=== PATIENT | female | born 1935 | race Caucasian/White ===

== ENCOUNTER → 2017-01-03 | Outpatient (CLI) | payer MEDICARE, OTHER ==
--- NOTE | 2017-01-03 16:19 | REP ---
Portable day a [place] lumbar spine five views: There are no comparisons. Vertebral body heights and alignment are normal. There is no spondylolysis or spondylolisthesis. There is advanced degenerative disc disease at every lumbar level. The pedicles, facets and sacroiliac articulations are unremarkable. Impression: Advanced degenerative disc disease at every lumbar level. Signed by Romeo Lemus MD 01/03/2017 04:10 P
--- NOTE | 2017-01-03 16:21 | REP ---
O day a [place] left knee five views: There are no comparisons. 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 There is no joint effusion. There is diffuse demineralization. Impression: Chondrocalcinosis compatible with CPPD, advanced tricompartment osteoarthritis, demineralization. No effusion. Signed by Romeo Lemus MD 01/03/2017 04:12 P
== END ==
LOC: M RAD 15:10
PROVIDERS: ATTEND Internal Medicine
DX: M51.37 Other intervertebral disc degeneration, lumbosacral region (principal); M17.12 Unilateral primary osteoarthritis, left knee; M81.0 Age-related osteoporosis without current pathological fracture; M11.262 Other chondrocalcinosis, left knee; D50.9 Iron deficiency anemia, unspecified

== ENCOUNTER → 2017-01-03 | Outpatient (REF) | payer MEDICARE, OTHER ==
[2017-01-03 17:20] LABS: PERCENT SATURATION 21.2 % (13.2-37.4)
[2017-01-03 18:10] LABS: FOLATE 16.3 NG/ML
== END ==
LOC: M LAB REF 16:26
PROVIDERS: ATTEND Internal Medicine
DX: D50.9 Iron deficiency anemia, unspecified (principal)

== ENCOUNTER → 2017-03-11 | Outpatient (REF) | payer MEDICARE, OTHER ==
[2017-03-11 13:50] LABS: URIC ACID 7.8 MG/DL (2.6-6.0)
[2017-03-11 19:09] LABS: PERCENT SATURATION 23.9 % (13.2-45.0)
== END ==
LOC: M LAB REF 12:46
PROVIDERS: ATTEND Internal Medicine
DX: M10.9 Gout, unspecified (principal); D64.9 Anemia, unspecified

== ENCOUNTER → 2017-04-16 | Outpatient (REF) | payer MEDICARE, OTHER | LOC: M LAB REF 16:36 | PROVIDERS: ATTEND Internal Medicine | DX: E79.0 Hyperuricemia without signs of inflammatory arthritis and tophaceous disease (principal) ==

== ENCOUNTER → 2018-02-12 | Outpatient (REF) | payer MEDICARE, OTHER ==
[2018-02-12 12:34] LABS: URIC ACID 6.1 MG/DL (2.6-6.0)
== END ==
LOC: M LAB REF 12:06
DX: M10.9 Gout, unspecified (principal)
CPT/HCPCS: 84550

== ENCOUNTER → 2018-06-09 | Outpatient (REF) | payer MEDICARE, OTHER | LOC: M LAB REF 16:44 | DX: N39.0 Urinary tract infection, site not specified (principal) | CPT/HCPCS: 87086 ==

== ENCOUNTER → 2018-12-07 | Outpatient (CLI) | payer MEDICARE, OTHER ==
--- NOTE | 2018-12-07 13:05 | REP ---
Clinical: Contusion. Technique: AP, lateral, bilateral oblique views of the left foot. Findings: Age-related osteopenia and arthritic degenerative changes are appreciated along with soft tissue swelling and evidence for peripheral vascular disease. There is a nondisplaced fracture involving the base of the first toe proximal phalanx. Injury involving the second toe proximal phalanx cannot be excluded as well. Impression: 1. Injury at the base of the first toe proximal phalanx and possible injury at the base of the second toe proximal phalanx. 2. Moderate soft tissue swelling along with diffuse osteodystrophy. Electronically Signed by James Solis MD 12/07/2018 12:56 P
== END ==
LOC: M WUC 12:38
PROVIDERS: ATTEND Physician Assistant
DX: S92.415A Nondisplaced fracture of proximal phalanx of left great toe, initial encounter for closed fracture (principal); M79.89 Other specified soft tissue disorders; M85.872 Other specified disorders of bone density and structure, left ankle and foot; M19.072 Primary osteoarthritis, left ankle and foot; X58.XXXA Exposure to other specified factors, initial encounter; Y92.9 Unspecified place or not applicable

== ENCOUNTER 2021-05-15 11:23 | Inpatient (IN) | payer MEDICARE, OTHER ==
[~2021-05-15] VITALS: Ht 165.1 cm; Wt 88.4 kg
--- OUTSIDE RECORDS SUMMARY | 2021-05-15 11:28 | CCD | Continuity of Care Document ---
Author Author Keely Shah M.D. Organization Unknown Address [address] [facility] [address] [place] [address] Phone [phone] Care Team Providers Care Toll Bridge Operator Name Role Phone Carol Shah MD AUTM [phone] Antonio Arellano MD AUTM [phone] Problems Active Problems Provider Date Benign essential hypertension Carol Shah M.D. Onset: 03/04/2011 Type 2 diabetes mellitus Carol Shah M.D. Onset: 02/13 Pure hypercholesterolemia Carol Shah M.D. Onset: Asthma without status asthmaticus Carol Shah M.D. On set: 03/04/2011 Iron deficiency anemia Carol Shah M.D. Onset: 2010 Osteoarthritis Carol Shah M.D. Onset: 1 Generalized anxiety disorder Carol Shah M.D. Onset: 03/04/2011 Chondrocalcinosis of knee joint Carol Shah M.D. Onse t: 01/04/2017 Social History Type Date Description Comments Sex Unknown ETOH Use Denies alcohol use Tobacco Use Start: Unknown End: Unknown Patient is a former smoker SMOKED X 3-4 YRS NEVER INHALED Allergies, Adverse Reactions, Alerts Active Allergies Reaction Severity Comments Date Sulfa CONFUSION 10/11/2011 Inactive Allergies NKDA 04/04/2010 Medications Active Medications SIG Qnty Indications Ordering Provide r Date Metoprolol Succinate ER 50mg Tablets ER 24HR take one tablet by mouth at bedtime 90tabs Xenia Lopez.D. 10/26/2019 Nu-Mag 71.5-119mg Tablets DR take two tablets by mouth at bedtime 180tabs Xenia Lopez 10/12/2019 Losartan Potassium 50mg Tablets 1 by mouth every night at bedtime 90tabs Carol Shah M.D. 0 03/19/2019 Loperamide HCL 2mg Capsules 1 by mouth every day as needed Carol Shah M.D. 08/16 Eucerin Skin Calming Daily Moisturizing Cream 2x/d Carol Shah M.D. 05/16 Shingrix 50mcg/0.5ML Suspension Re c administer 0.5 milliliters intramuscular, repeat in 2 to 6 months 2units Carol Shah M.D. 06/09/2018 Aspercreme W/Lidocaine 4% Cream 2-4x/d as directed 30gm Carol Shah M.D. 03/12/20 17 Tylenol 8 Hour Arthritis Pain 650mg Tablets ER 1po 3x/d for 2 weeks then as needed Carol Shah M.D. 01/03/2017 Depend Pant Large Misc 1-2 po qd dm 2 cri3 incontinence 60units Carol Shah M.D. 2015 Flonase Allergy Relief 50mcg/Act Suspension 1-2 sprays per nostril twice a day as needed 29.7ml Carol Shah M.D. 05/04/2015 Simvastatin 20mg Tablets take one tablet by mouth at bedtime 90tabs Carol Shah M.D. 07/15 Accu-Chek Comfort Curve Test Strips Strips 1 b.i.d.3x week and as needed 100units E11.22 Carol Randhawa M.D. 03/31/[address] take one capsule by mouth every morning 90caps Carol Shah M.D. 02/26/2013 Glucometer Misc use as directed dx=dm2 1units Carol Shah M.D. 01/14 Advair Diskus 250-50mcg/Dose Aeros ol inhale 1 puff by mouth two times a day as needed 3units Carol Shah M.D. 10/18/2010 Medications Administered in Office Medication SIG Qnty Indications Ordering Provider Date Immunization Adminstration,1 Vaccine/Tox oid Injection Carol Shah M.D. 05/15 Administration Of Flu Vaccine Inj ection Carol Shah M.D. 04/27/20 04 Administration Of Flu Vaccine Inj ection Carol Shah M.D. 06/22/20 02 Administration Of Flu Vaccine Inj ection Carol Shah M.D. 04/23/20 01 Immunizations CPT Code Status Date Vaccine Lot # U-Flu Given 05/02/2020 Influenza,Unspecified 53428 Given 05/26/2019 Tetanus/Diptheria(Td)Toxoids Preservative Free [id number] U-Flu Given 05/09/2019 Influenza,Unspecified U-Flu Given 04/03/2018 Influenza,Unspecified 15103 Given 07/28/2014 Prevnar 13 [id number] 05438 Given 04/27/2004 Influenza Virus Vaccine 70157 Given 06/22/2002 Influenza Virus Vaccine 74195 Given 04/23/2001 Influenza Virus Vaccine [id number] Refused 05/19/2020 Shingrix Zoster Vaccine (HZV), Recombinant, Subunit, Adjuvanted 96497 Refused 06/09/2018 Zoster Vaccine Vital Signs Date Vital Result Comment 02/14/2021 11:41am BP Systolic 140 mmHg RT Arm BP Diastolic 60 mmHg RT Arm Heart Rate 80 /min Height 62.75 inches 5'2.75" Weight 184.12 lb BMI (Body Mass Index) 32.9 kg/m2 10/18/2020 10:33am BP Systolic 138 mmHg RT Arm BP Diastolic 60 mmHg RT Arm Heart Rate 88 /min Height 62.75 inches 5'2.75" Weight 180.25 lb BMI (Body Mass Index) 32.2 kg/m2 Results Test Acquired Date Facility Test Result H/L Range Note Complete Blood Count 02/14/2021 [facility] Patient Accounts Clerk: [place] [address] [phone] WBC 10.4 x10*3/UL 4.1 - 10.9 1 RBC 4.09 x10*6/UL Low 4.20 - 6.30 Hemoglobin 11.8 g/dL Low 12.0 - 18.0 Hematocrit 34.8 % Low 37.0 - 51.0 MCV 84.9 fL 80.0 - 97.0 MCH 28.8 pg 26.0 - 32.0 MCHC 33.9 g/dL 31.0 - 38.0 RDW 13.6 % 11.6 - 13.7 PLT 369 x10*3/UL 140 - 440 MPV 8.4 FL 7.8 - 11.0 Lymph % 17.1 % 10.0 - 58.5 Mid % 5.1 % 1.7 - 9.3 Neut % 77.8 % 37.0 - 92.0 Lymph # 1.7 x10*3/UL 0.6 - 4.1 Mid # 0.6 x10*3/UL 0.1 - 0.6 Neut # 8.1 x10*3/UL High 2.0 - 7.8 A1c 02/14/2021 [facility] Patient Accounts Clerk: Dr Dawson Hardin [place], [place] [id number] [phone] Hba1c 7.5 % High <5.7 2 Est Avg Glucose 169 mg/dL High 60 - 110 Laboratory test finding 02/14/2021 [facility] Patient Accounts Clerk: [place] [address] [phone] Magnesium 2.0 mg/dL 1.8 - 2.4 Basic Metabolic Panel 02/14/2021 [facility] Patient Accounts Clerk: Dr Dawson Hardin [place], [place] [id number] [phone] Glucose 122 mg/dL High 74 - 99 3 BUN 33 mg/dL High 7 - 18 Creatinine 1.8 mg/dL High 0.6 - 1.3 Sodium 139 mEq/L 136 - 145 Potassium 5.2 mEq/L High 3.5 - 5.1 4 Chloride 102 mEq/L 98 - 107 Carbon Dioxide 27 mEq/L 21 - 32 Calcium 10.1 mg/dL 8.5 - 10.1 GFR 27 mL/min Low >60 GFR 32 mL/min Low >60 5 Complete Blood Count 10/18/2020 [facility] Patient Accounts Clerk: [place] [address] [phone] WBC 11.9 x10*3/UL High 4.1 - 10.9 6 RBC 3.97 x10*6/UL Low 4.20 - 6.30 Hemoglobin 11.5 g/dL Low 12.0 - 18.0 Hematocrit 33.7 % Low 37.0 - 51.0 MCV 84.9 fL 80.0 - 97.0 MCH 29.0 pg 26.0 - 32.0 MCHC 34.1 g/dL 31.0 - 38.0 RDW 13.1 % 11.6 - 13.7 PLT 335 x10*3/UL 140 - 440 MPV 8.5 FL 7.8 - 11.0 Lymph % 14.1 % 10.0 - 58.5 Mid % 3.6 % 1.7 - 9.3 Neut % 82.3 % 37.0 - 92.0 Lymph # 1.6 x10*3/UL 0.6 - 4.1 Mid # 0.5 x10*3/UL 0.1 - 0.6 Neut # 9.8 x10*3/UL High 2.0 - 7.8 A1c 10/18/2020 [facility] Patient Accounts Clerk: [place] [address] [phone] Hba1c 7.6 % High <5.7 7 Est Avg Glucose 171 mg/dL High 60 - 110 Laboratory test finding 10/18/2020 [facility] Patient Accounts Clerk: [place] [address] [phone] Magnesium 1.8 mg/dL 1.8 - 2.4 Basic Metabolic Panel 10/18/2020 [facility] Patient Accounts Clerk: [place] [address] [phone] Glucose 120 mg/dL High 74 - 99 8 BUN 28 mg/dL High 7 - 18 Creatinine 1.7 mg/dL High 0.6 - 1.3 Sodium 139 mEq/L 136 - 145 Potassium 4.8 mEq/L 3.5 - 5.1 Chloride 102 mEq/L 98 - 107 Carbon Dioxide 26 mEq/L 21 - 32 Calcium 9.3 mg/dL 8.5 - 10.1 GFR 28 mL/min Low >60 GFR 34 mL/min Low >60 9 1 NOTE: CBC VERIFEID 2 Lab Result Notes: Pre-Diabetes 5.7 - 6.4 % Diabetes = or > 6.5% 3 100-125 mg/dL PRE-DIABET ES/FASTING >126 mg/dL DIABETES/FASTING 4 NOTE: RESULT VERIFIED. NO VISIBLE HEMOLYSIS. 5 CHRONIC KIDNEY DISEASE STAGI NG PER NKF STAGE I & II GFR >= 60 NORMAL TO MILDLY DECREASED STAGE III GFR 30-59 MODERATELY DECREASED STAGE IV GFR 15-29 SEVERELY DECREASED STAGE V GFR <15 VERY LITTLE GFR LEFT ESRD GFR <15 ON WOOD BOATBUILDER APPRENTICE 6 NOTE: CBC VERIFIED 7 Lab Result Notes: Pre-Diabetes 5.7 - 6.4 % Diabetes = or > 6.5% 8 100-125 mg/dL PRE-DIABET ES/FASTING >126 mg/dL DIABETES/FASTING 9 CHRONIC KIDNEY DISEASE STAGI NG PER NKF STAGE I & II GFR >= 60 NORMAL TO MILDLY DECREASED STAGE III GFR 30-59 MODERATELY DECREASED STAGE IV GFR 15-29 SEVERELY DECREASED STAGE V GFR <15 VERY LITTLE GFR LEFT ESRD GFR <15 ON WOOD BOATBUILDER APPRENTICE Procedures Date Code Description Status 10/18/2020 06695 Office/Outpatient Established Mo d MDM 30-39 Min Completed 05/01/2018 [id number] Diabetic Retinal Eye Exam [facility] 03/27/2018 [id number] Diabetic Retinal Eye Exam [facility] 03/10/2018 [id number] Diabetic Retinal Eye Exam [facility] 03/03/2018 [id number] Diabetic Retinal Eye Exam [facility] 01/09/2010 [id number] Diabetic Foot Exam Completed 10/14/2007 [id number] Diabetic Retinal Eye Exam [facility] 11/20/2005 [id number] Mammogram Completed Medical Devices Description No Information Available Encounters Type Date Location Provider Dx Diagnosis Office Visit [facility] 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 02/14/2021 N18.32 Chronic kidney disease, stage 3b Carol Shah M.D. 02/14/2021 M19.90 Unspecified osteoarthritis, unsp ecified site Carol Shah M.D. 02/14/2021 J45.909 Unspecified asthma, uncomplicate d Carol Shah M.D. 02/14/2021 K30 Functional dyspepsia Carol Randhawa M.D. 02/14/2021 E78.00 Pure hypercholesterolemia, unspe cified Carol Shah M.D. 02/14/2021 E83.42 Hypomagnesemia Carol onofre M.D. 02/14/2021 I12.9 Hypertensive chronic kidney dise ase with stage 1 through sta Carol Shah M.D. 10/18/2020 I12.9 Hypertensive chronic kidney dise ase with stage 1 through shirin Shah M.D. 10/18/2020 N18.32 Chronic kidney disease, stage 3b Carol Shah M.D. 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 10/18/2020 M19.90 Unspecified osteoarthritis, unsp ecified site Carol Shah M.D. 10/18/2020 J30.9 Allergic rhinitis, unspecified J stanislaw Shah M.D. 10/18/2020 K58.0 Irritable bowel syndrome with di arrhea Carol Shah M.D. 10/18/2020 K30 Functional dyspepsia Carol Randhawa M.D. 10/18/2020 E78.00 Pure hypercholesterolemia, unspe cified Carol Shah M.D. 10/18/2020 E83.42 Hypomagnesemia Carol onofre M.D. Plan of Treatment Future Appointment(s):* 05/25/2021 9:20 am [facility] * 05/25/2021 9:45 am - Carol Shah M.D. at [facility] 02/14/2021 - Carol Shah M.D.* E11.22 Type 2 diabetes mellitus with diabetic chronic kidney disease * N18.32 Chronic kidney disease, stage 3b * M19.90 Unspecified osteoarthritis, unspecified site * J45.909 Unspecified asthma, uncomplicated * K30 Functional dyspepsia * E78.00 Pure hypercholesterolemia, unspecified * E83.42 Hypomagnesemia * I12.9 Hypertensive chronic kidney disease with stage 1 through sta * All * Comments:* 9. Sebaceous cyst. Status post conservative management with expression of a large amount of creamy, waxy material. I've recommended washing the site when she has her shower and putting a topical antibiotic and bandaid on it to prevent any infection. Call if any issues. 10. Cognitive Impairment. Mild, option of further eval/treatment discussed and refused. Discussed there is no proven benefit of the Prevagen. 11. Allergic Rhinitis. She'll try to decrease her exposure to allergins. She uses Flonase as needed. 12. Diarrhea. Resolved. Health Maintenance. She's had her COVID vaccine. Functional Status Description No Information Available Mental Status Description No Information Available Referrals Description No Information Available
--- OUTSIDE RECORDS SUMMARY | 2021-05-15 11:29 | CCD | Continuity of Care Document ---
Author Author Keely Shah M.D. Organization Unknown Address [address] [facility] [address] [place] [address] Phone [phone] Care Team Providers Care Continuous Miner Operator Helper Name Role Phone Carol Shah MD AUTM [phone] Antonio Arellano MD AUTM [phone] Problems Active Problems Provider Date Benign essential [...] Vaccine Lot # U-Flu Given 05/02/2020 Influenza,Unspecified 84782 Given 05/26/2019 Tetanus/Diptheria(Td)Toxoids Preservative Free [id number] U-Flu Given 05/09/2019 Influenza,Unspecified U-Flu Given 04/03/2018 Influenza,Unspecified 88409 Given 07/28/2014 Prevnar 13 [id number] 74335 Given 04/27/2004 Influenza Virus Vaccine 53370 Given 06/22/2002 Influenza Virus Vaccine 82543 Given 04/23/2001 Influenza Virus Vaccine 04435 Refused 05/19/2020 Shingrix Zoster Vaccine (HZV), Recombinant, Subunit, Adjuvanted 39618 Refused 06/09/2018 Zoster Vaccine Vital Signs Date [...] Date Facility Test Result H/L Range Note Laboratory test finding 02/14/2021 [facility] Machine Stamper: [place] [address] [phone] A1c <pending> Magnesium, Serum <pending> Complete Blood Count 10/18/2020 [facility] Machine Stamper: Dr Dawson [place] [address] [phone] WBC 11.9 x10*3/UL High 4.1 - 10.9 1 RBC 3.97 x10*6/UL Low 4.20 - 6.30 [...] x10*3/UL High 2.0 - 7.8 A1c 10/18/2020 [facility] Machine Stamper: Dr Dawson [place] [address] [phone] Hba1c 7.6 % High <5.7 2 Est Avg Glucose 171 mg/dL High 60 - 110 Laboratory test finding 10/18/2020 [facility] Machine Stamper: Dr Dawson [place] [address] [phone] Magnesium 1.8 mg/dL 1.8 - 2.4 Basic Metabolic Panel 10/18/2020 [facility] Machine Stamper: [place] Dawson [place] [address] [phone] Glucose 120 mg/dL High 74 - 99 3 BUN 28 mg/dL High 7 - 18 Creatinine 1.7 mg/dL High 0.6 - 1.3 Sodium 139 mEq/L 136 - 145 Potassium 4.8 mEq/L 3.5 - 5.1 Chloride 102 mEq/L 98 - 107 Carbon Dioxide 26 mEq/L 21 - 32 Calcium 9.3 mg/dL 8.5 - 10.1 GFR 28 mL/min Low >60 GFR 34 mL/min Low >60 4 1 NOTE: CBC VERIFIED 2 Lab Result Notes: Pre-Diabetes 5.7 - 6.4 % Diabetes = or > 6.5% 3 100-125 mg/dL PRE-DIABET ES/FASTING >126 mg/dL DIABETES/FASTING 4 CHRONIC KIDNEY DISEASE STAGI NG PER NKF STAGE I & II GFR >= 60 NORMAL TO MILDLY DECREASED STAGE III GFR 30-59 MODERATELY DECREASED STAGE IV GFR 15-29 SEVERELY DECREASED STAGE V GFR <15 VERY LITTLE GFR LEFT ESRD GFR <15 ON LINE O SCRIBE OPERATOR Procedures Date Code Description Status 10/18/2020 90897 Office/Outpatient Established Mo d MDM 30-39 Min Completed 05/01/2018 [id number] Diabetic Retinal Eye Exam [facility] 03/27/2018 [id number] Diabetic Retinal Eye Exam [facility] 03/10/2018 [id number] Diabetic Retinal Eye Exam [facility] 03/03/2018 [id number] Diabetic Retinal Eye Exam [facility] 01/09/2010 [id number] Diabetic Foot Exam Completed 10/14/2007 [id number] Diabetic Retinal Eye Exam [facility] 11/20/2005 [id number] Mammogram Completed Medical Devices Description No Information Available Encounters Type Date Location Provider Dx Diagnosis Office Visit 10/18/2020 10:30a [facility] Alexis Shah M.D. 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 10/18/2020 N18.32 Chronic kidney disease, [...] Hypomagnesemia Carol onofre M.D. Plan of Treatment 10/18/2020 - Carol Shah M.D.* I12.9 Hypertensive chronic kidney disease with stage 1 through sta * N18.32 Chronic kidney disease, stage 3b * E11.22 Type 2 diabetes mellitus with diabetic chronic kidney disease * M19.90 Unspecified osteoarthritis, unspecified site * J30.9 Allergic rhinitis, unspecified * K58.0 Irritable bowel syndrome with diarrhea * K30 Functional dyspepsia * E78.00 Pure hypercholesterolemia, unspecified * E83.42 Hypomagnesemia * All * Comments:* 10. Asthma. Continues on Advair. She refuses Albuterol, [id number]. Health Maintenance. She has had both COVID vaccines Functional Status Description No Information Available Mental Status Description No Information Available Referrals Description No Information Available
--- OUTSIDE RECORDS SUMMARY | 2021-05-15 11:29 | CCD ---
Author Author [facility] Organization [facility] Address Unknown Phone Unavailable Care Team Providers Care Accounting Specialist Name Role Phone Xenia Shah MD Unavailable Unavailable Xenia Shah MD Unavailable Unavailable Xenia Shah MD Unavailable Unavailable Xenia Shah MD Unavailable Unavailable Xenia Shah MD Unavailable Unavailable Xenia Shah MD Unavailable Unavailable Xenia Shah MD Unavailable Unavailable Xenia Shah MD Unavailable Unavailable Xenia Shah MD Unavailable Unavailable Xenia Shah MD Unavailable Unavailable Xenia Shah MD Unavailable Unavailable Xenia Shah MD Unavailable Unavailable Xenia Shah MD Unavailable Unavailable Xenia Shah MD Unavailable Unavailable Xenia Shah MD Unavailable Xenia Viramontes MD Unavailable Xenia Viramontes MD Unavailable Unavailable Xenia Shah MD Unavailable Unavailable Xenia Shah MD Unavailable Unavailable Xenia Shah MD Unavailable Unavailable Xenia Shah MD Unavailable Xenia Viramontes MD Unavailable Xenia Viramontes MD Unavailable Unavailable Xenia Shah MD Unavailable Xenia Viramontes MD Unavailable Unavailable Xenia Shah MD Unavailable Unavailable Xenia Shah MD Unavailable Xenia Viramontes MD Unavailable Xenia Viramontes MD Unavailable Unavailable Xenia Shah MD Unavailable Unavailable Xenia Shah MD Unavailable Unavailable Xenia Shah MD Unavailable Unavailable Xenia Shah MD Unavailable Unavailable AlyssaXenia MD Unavailable Unavailable AlyssaXenia MD Unavailable Unavailable AlyssaXenia MD Unavailable Unavailable AlyssaXenia MD Unavailable Unavailable AlyssaXenia MD Unavailable Unavailable AlyssaXenia MD Unavailable Unavailable AlyssaXenia MD Unavailable Unavailable AlyssaXenia MD Unavailable Unavailable AlyssaXenia MD Unavailable Unavailable AlyssaXenia MD Unavailable Unavailable AlyssaXenia MD Unavailable Unavailable AlyssaXenia MD Unavailable Unavailable AlyssaXenia MD Unavailable Unavailable AlyssaXenia MD Unavailable Unavailable AlyssaXenia MD Unavailable Unavailable AlyssaXenia MD Unavailable Unavailable AlyssaXenia MD Unavailable Unavailable AlyssaXenia MD Unavailable Unavailable AlyssaXenia MD Unavailable Unavailable AlyssaXenia MD Unavailable Unavailable Xenia Shah MD Unavailable Unavailable Xenia Shah MD Unavailable Unavailable Xenia Shah MD Unavailable Unavailable AlyssaXenia onofre MD Unavailable Unavailable Xenia Shah MD Unavailable Unavailable Xenia Shah MD Unavailable Unavailable Xenia Shah MD Unavailable Unavailable Xenia Shah MD Unavailable Unavailable Xenia Shah MD Unavailable Unavailable Xenia Shah MD Unavailable Unavailable Xenia Shah MD Unavailable Unavailable Xenia Shah MD Unavailable Unavailable Xenia Shah MD Unavailable Unavailable Xenia Shah MD Unavailable Unavailable Xenia Shah MD Unavailable Unavailable Xenia Shah MD Unavailable Unavailable Xenai Shah MD Unavailable Unavailable Xenia Shah MD Unavailable Unavailable Xenia Shah MD Unavailable Unavailable Xenia Shah MD Unavailable Unavailable Xenia Shah MD Unavailable Unavailable Xenia Shah MD Unavailable Unavailable Xenia Shah MD Unavailable Unavailable Xenia Shah MD Unavailable Unavailable AlyssaXenia MD Unavailable Unavailable Xenia Shah MD Unavailable Unavailable Xenia Shah MD Unavailable Unavailable Xenia Shah MD Unavailable Unavailable Xenia Shah MD Unavailable Unavailable AlyssaXenia MD Unavailable Unavailable Xenia Shah MD Unavailable Re-disclosure Warning The records that you are about to access may contain information from federally-assisted alcohol or drug abuse programs. If such information is present, then the following federally mandated warning applies: This information has been disclosed to you from records protected by federal confidentiality rules (42 CFR part 2). The federal rules prohibit you from making any further disclosure of this information unless further disclosure is expressly permitted by the written consent of the person to whom it pertains or as otherwise permitted by 42 CFR part 2. A general authorization for the release of medical or other information is NOT sufficient for this purpose. The Federal rules restrict any use of the information to criminally investigate or prosecute any alcohol or drug abuse patient.The records that you are about to access may contain highly sensitive health information, the redisclosure of which is protected by Article 27-F of the [facility] Public Health law. If you continue you may have access to information: Regarding HIV / AIDS; Provided by facilities licensed or operated by the [facility] Office of Mental Health; or Provided by the [facility] Office for People With Developmental Disabilities. If such information is present, then the following [facility] mandated warning applies: This information has been disclosed to you from confidential records which are protected by state law. State law prohibits you from making any further disclosure of this information without the specific written consent of the person to whom it pertains, or as otherwise permitted by law. Any unauthorized further disclosure in violation of state law may result in a fine or senior care sentence or both. A general authorization for the release of medical or other information is NOT sufficient authorization for further disc losure. Family History Family Member Name Family Member Gender Family Member Status Date o f Status Description Data Source(s) Unknown Unknown Problem [facility] ([facility]) Unknown Male Problem [facility] ([facility]) Encounters Encounter Providers Location Date Indications Data Source(s ) Outpatient Attender: Carol Albright 10:30:00 AM EDT [facility] ([facility] ) Outpatient Attender: Carol Albright 09:30:00 AM EST [facility] ([facility] ) Immunizations Vaccine Date Status Description Data Source(s) COVID-19 VACCINE Moderna 10/12/2020 12:00:00 AM EDT completed [facility] Vaccine Series Complete: YESThis Data wa s Submitted to [facility] Via [employer]. COVID-19 VACCINE, MRNA-1273, LNP-S (MODERNA)/PF 10/12/2020 1 2:00:00 AM EDT completed [facility] COVID-19 VACCINE, MRNA-1273, LNP-S (MODERNA)/PF 09/08/2020 1 2:00:00 AM EST completed [facility] Shingrix Zoster Vaccine (HZV), Recombinant, Subunit, A djuvanted 05/19/2020 01:55:00 PM EST completed [facility]) This CVX code allows reporting of a vacc ination when formulation is unknown (for example, when recording a Influenza vaccination when noted on a vaccination card) 05/02/2020 11:03:00 AM EDT completed [facility] ([facility]) Medications Medication Brand Name Start Date Product Form Dose Route Admi nistrative Instructions Pharmacy Instructions Status Indications Reaction Description Data Source(s) 50 mg 04/21/2021 12:00:00 AM EDT tablet extended release 24 hr 90 TAKE ONE TABLET BY MOUTH ONCE DAILY AT BEDTIME TAKE ONE TABLET BY MOUTH ONCE DAILY AT BEDTIME SOLD: 04/21/2021 [facility] 250-50 mcg/dose 02/15/2021 12:00:00 AM EDT blister with amol ce 180 INHALE 1 PUFF BY MOUTH TWO TIMES A DAY INHALE 1 PUFF BY MOUTH TWO TIMES A DAY SOLD: 02/15/2021 [facility] 20 mg 12/23/2020 12:00:00 AM EDT tablet 90 TAKE ONE TABLET BY MOUTH AT BEDTIME TAKE ONE TABLET BY MOUTH AT BEDTIME SOLD: 03/24/2021 [facility] 20 mg 12/23/2020 12:00:00 AM EDT tablet 90 TAKE ONE TABLET BY MOUTH AT BEDTIME TAKE ONE TABLET BY MOUTH AT BEDTIME SOLD: 12/23/2020 [facility] 50 mg 12/06/2020 12:00:00 AM EDT tablet 90 TAKE ONE TABLET BY MOUTH AT BEDTIME TAKE ONE TABLET BY MOUTH AT BEDTIME SOLD: 12/06/2020 [facility] 50 mg 12/06/2020 12:00:00 AM EDT tablet 90 TAKE ONE TABLET BY MOUTH AT BEDTIME TAKE ONE TABLET BY MOUTH AT BEDTIME SOLD: 03/03/2021 [facility] 20 mg 08/05/2020 12:00:00 AM EST capsule,delayed release (DR/EC) 90 TAKE ONE CAPSULE BY MOUTH EVERY MORNING TAKE ONE CAPSULE BY MOUTH EVERY MORNING SOLD: 02/03/2021 [facility] 20 mg 08/05/2020 12:00:00 AM EST capsule,delayed release (DR/EC) 90 TAKE ONE CAPSULE BY MOUTH EVERY MORNING TAKE ONE CAPSULE BY MOUTH EVERY MORNING SOLD: 05/05/2021 [facility] 20 mg 08/05/2020 12:00:00 AM EST capsule,delayed release (DR/EC) 90 TAKE ONE CAPSULE BY MOUTH EVERY MORNING TAKE ONE CAPSULE BY MOUTH EVERY MORNING SOLD: 08/05/2020 [facility] 20 mg 08/05/2020 12:00:00 AM EST capsule,delayed release (DR/EC) 90 TAKE ONE CAPSULE BY MOUTH EVERY MORNING TAKE ONE CAPSULE BY MOUTH EVERY MORNING SOLD: 10/31/2020 [facility] Cephalexin 500 MG Oral Capsule Cephalexin 05/20/2020 12:00:00 AM EST ORAL completed [facility] ([facility]) Cephalexin 500 MG Oral Capsule CEPHALEXIN 05/20/2020 12:00:00 AM EST capsule 10 TAKE ONE CAPSULE BY MOUTH TWICE A DAY FOR 5 DAYS TAKE ONE CAPSULE BY MOUTH TWICE A DAY FOR 5 DAYS SOLD: 05/20/2020 [facility] 250-50 mcg/dose 05/20/2020 12:00:00 AM EST blister with amol ce 180 INHALE ONE PUFF BY MOUTH TWICE A DAY NEEDED INHALE ONE PUFF BY MOUTH TWICE A DAY NEEDED SOLD: 05/20/2020 [facility] 50 mg 04/25/2020 12:00:00 AM EDT tablet extended release 24 hr 90 TAKE ONE TABLET BY MOUTH EVERY DAY AT BEDTIME TAKE ONE TABLET BY MOUTH EVERY DAY AT BEDTIME SOLD: 01/20/2021 [facility] 50 mg 04/25/2020 12:00:00 AM EDT tablet extended release 24 hr 90 TAKE ONE TABLET BY MOUTH EVERY DAY AT BEDTIME TAKE ONE TABLET BY MOUTH EVERY DAY AT BEDTIME SOLD: 10/31/2020 [facility] 50 mg 04/25/2020 12:00:00 AM EDT tablet extended release 24 hr 90 TAKE ONE TABLET BY MOUTH EVERY DAY AT BEDTIME TAKE ONE TABLET BY MOUTH EVERY DAY AT BEDTIME SOLD: 07/29/2020 [facility] 50 mg 04/25/2020 12:00:00 AM EDT tablet extended release 24 hr 90 TAKE ONE TABLET BY MOUTH EVERY DAY AT BEDTIME TAKE ONE TABLET BY MOUTH EVERY DAY AT BEDTIME SOLD: 04/25/2020 [facility] 20 mg 11/09/2019 12:00:00 AM EDT capsule,delayed release (DR/EC) 90 TAKE ONE CAPSULE BY MOUTH EVERY MORNING TAKE ONE CAPSULE BY MOUTH EVERY MORNING SOLD: 05/06/2020 [facility] 50 mg 10/27/2019 12:00:00 AM EDT tablet 90 TAKE ONE TABLET BY MOUTH EVERY DAY AT BEDTIME TAKE ONE TABLET BY MOUTH EVERY DAY AT BEDTIME SOLD: 08/30/2020 [facility] 20 mg 10/27/2019 12:00:00 AM EDT tablet 90 TAKE ONE TABLET BY MOUTH EVERY DAY AT BEDTIME TAKE ONE TABLET BY MOUTH EVERY DAY AT BEDTIME SOLD: 09/23/2020 [facility] 20 mg 10/27/2019 12:00:00 AM EDT tablet 90 TAKE ONE TABLET BY MOUTH EVERY DAY AT BEDTIME TAKE ONE TABLET BY MOUTH EVERY DAY AT BEDTIME SOLD: 03/22/2020 [facility] 50 mg 10/27/2019 12:00:00 AM EDT tablet 90 TAKE ONE TABLET BY MOUTH EVERY DAY AT BEDTIME TAKE ONE TABLET BY MOUTH EVERY DAY AT BEDTIME SOLD: 2020 [facility] 20 mg 10/27/2019 12:00:00 AM EDT tablet 90 TAKE ONE TABLET BY MOUTH EVERY DAY AT BEDTIME TAKE ONE TABLET BY MOUTH EVERY DAY AT BEDTIME SOLD: 06/27/2020 [facility] Insurance Providers Payer name Policy type / Coverage type Policy ID Covered democrat ID Covered democrat's relationship to [place] Policy [place] Plan Information Medicare Natl Govt Servic Medicare Primary [id number] Self [id number] Medicare Natl Govt Servic Medicare Primary [id number] Self [id number] Medicare Natl Govt Servic Medicare Primary [id number] Self [id number] Medicare Natl Govt Servic Medicare Primary [id number] Self [id number] Medicare Natl Govt Servic Medicare Primary [id number] Self [id number] MEDICARE [id number] SP [id number] D Medicare Natl Govt Servic Medicare Primary [id number] Self [id number] Medicare Natl Govt Servic Medicare Primary [id number] Self [id number] Medicare Natl Govt Servic Medicare Primary [id number] Self [id number] Medicare Natl Govt Servic Medicare Primary [id number] Self [id number] Medicare Natl Govt Servic Medicare Primary [id number] Self [id number] Medicare Natl Govt Servic Medicare Primary [id number] Self [id number] Medicare Natl Govt Servic Medicare Primary [id number] Self [id number] Medicare Natl Govt Servic Medicare Primary [id number] Self [id number] Medicare Natl Govt Servic Medicare Primary [id number] Self [id number] D WPS For Life Medigap Part B [id number] Family Depende nt WPS For Life Medigap Part B [id number] Family Dependent [id number] WPS For Life Medigap Part B [id number] Family Dependent [id number] WPS For Life Medigap Part B [id number] Family Dependent [id number] For Life WPS Medigap Part B [id number] Family Dependent [id number] Medicare Natl Gov't Servi Medicare Primary [id number] Self [id number] WPS For Life Medigap Part B [id number] Family Dependent [id number] WPS For Life Medigap Part B [id number] Family Dependent [id number] WPS For Life Medigap Part B [id number] Family Dependent [id number] WPS For Life Medigap Part B [id number] Family Dependent [id number] FOR LIFE [id number] SP [id number] WPS For Life Medigap Part B [id number] Family Dependent [id number] WPS For Life Medigap Part B [id number] Family Dependent [id number] WPS For Life Medigap Part B [id number] Family Dependent [id number] WPS For Life Medigap Part B [id number] Family Dependent [id number] WPS For Life Medigap Part B [id number] Family Dependent [id number] WPS For Life Medigap Part B [id number] Family Dependent [id number] Problems, Conditions, and Diagnoses No Information Surgeries/Procedures Procedure Description Date Indications Data Source(s) OFFICE OUTPATIENT VISIT 25 MINUTES 10/18/2020 12:00:00 AM EDT [facility] ([facility]) Results ID Date Data Source [id number] 02/14/2021 11:19:00 AM EDT [facility] ([facility]) Name Value Range Interpretation Code Description Data Corina rce(s) Supporting Document(s) Glucose [Mass/volume] in Serum or Plasma 122 mg/dL 74-99 [facility] ([facility]) 100-125 mg/dL PRE-DIABETES/FASTING >126 mg/dL DIABETES/FASTING Urea nitrogen [Mass/volume] in Serum or Plasma 33 mg/dL 7-18 [facility] ([facility]) Creatinine 1.8 mg/dL 0.6-1.3 [facility] Sodium [Moles/volume] in Serum or Plasma 139 meq/L 136-145 [facility] ([facility]) Potassium [Moles/volume] in Serum or Plasma 5.2 meq/L 3.5-5.1 [facility] ([facility]) NOTE: RESULT VERIFIED. NO VISIBLE HEMOLYSIS. Chloride [Moles/volume] in Serum or Plasma 102 meq/L 98-107 [facility] ([facility]) Carbon dioxide, total [Moles/volume] in Serum or Plasma 27 meq/L 21 -32 [facility] ([facility]) Calcium [Mass/volume] in Serum or Plasma 10.1 mg/dL 8.5-10.1 [facility] ([facility] Glomerular filtration rate/1.73 sq M pre dicted among non-blacks [Volume Rate/Area] in Serum or Plasma by Creatinine-based formula (MDRD) 27 mL/min [facility] ([facility]) Glomerular filtration rate/1.73 sq M pre dicted among blacks [Volume Rate/Area] in Serum or Plasma by Creatinine-based formula (MDRD) 32 mL/min [facility] ([facility]) <content>CHRONIC KIDNEY DISEASE STAGING PER NKF</content>
<content></content>
<content>STAGE I & II GFR >= 60 NORMAL TO MILDLY DECREASED</content>
<content>STAGE III GFR 30-59 MODERATELY DECREASED</content>
<content>STAGE IV GFR 15-29 SEVERELY DECREASED</content>
<content>STAGE V GFR <15 VERY LITTLE GFR LEFT</content>
<content>ESRD GFR <15 ON ASBESTOS WORKER HELPER</content>
<content></content> ID Date Data Source [id number] 02/14/2021 11:19:00 AM EDT [facility] ([facility]) Name Value Range Interpretation Code Description Data Corina rce(s) Supporting Document(s) Magnesium 2.0 mg/dL 1.8-2.4 [facility]) ID Date Data Source [id number] 02/14/2021 11:19:00 [facility] Name Value Range Interpretation Code Description Data Corina rce(s) Supporting Document(s) Hemoglobin A1c/Hemoglobin.total in Blood 7.5 % [facility] ([facility] Lab Result Notes: Pre-Diabetes 5.7 - 6.4 % Diabetes = or > 6.5% Glucose mean value [Mass/volume] in Blood Estimated fr om glycated hemoglobin 169 mg/dL 60-110 [facility] ([facility] ) ID Date Data Source [id number] 02/14/2021 11:19:00 AM EDT [facility] ([facility]) Name Value Range Interpretation Code Description Data Corina rce(s) Supporting Document(s) Leukocytes [#/volume] in Blood by Automated count 10.4 x10*3/UL 4.1-1 0.9 [facility] ([facility]) NOTE: CBC VERIFEID Hemoglobin [Mass/volume] in Blood 11.8 g/dL 12.0-18.0 [facility] ([facility]) Erythrocytes [#/volume] in Blood by Automated count 4.09 x10*6/UL 4.2 0-6.30 [facility] ([facility]) Hematocrit [Volume Fraction] of Blood by Automated count 34.8 % 3 7.0-51.0 [facility] ([facility]) MCV 84.9 fL 80.0-97.0 [facility] ([facility]) MCH 28.8 pg 26.0-32.0 [facility] ([facility]) Platelets [#/volume] in Blood by Automated count 369 x10*3/UL 140-440 [facility] ([facility]) MCHC 33.9 g/dL 31.0-38.0 [facility] ([facility]) Erythrocyte distribution width [Ratio] by Automated count 13.6 % 11.6-13.7 [facility] ([facility]) MPV 8.4 FL 7.8-11.0 [facility] ([facility]) Lymph % 17.1 % 10.0-58.5 [facility] ([facility]) Neut % 77.8 % 37.0-92.0 [facility] ([facility]) Lymph # 1.7 x10*3/UL 0.6-4.1 [facility] ([facility]) Mid % 5.1 % 1.7-9.3 [facility] ([facility]) Neut # 8.1 x10*3/UL 2.0-7.8 [facility] ([facility]) Mid # 0.6 x10*3/UL 0.1-0.6 [facility] ([facility]) ID Date Data Source [id number] 02/14/2021 11:19:00 AM EDT [facility] ([facility]) Name Value Range Interpretation Code Description Data Corina rce(s) Supporting Document(s) Hemoglobin A1c/Hemoglobin.total in Blood Laboratory test result [facility] ([facility]) Magnesium, Serum Laboratory test result [facility] ([facility]) ID Date Data Source [id number] 10/18/2020 11:03:00 AM EDT [facility] ([facility]) Name Value Range Interpretation Code Description Data Corina rce(s) Supporting Document(s) Glucose [Mass/volume] in Serum or Plasma 120 mg/dL 74-99 [facility] ([facility]) 100-125 mg/dL PRE-DIABETES/FASTING >126 mg/dL DIABETES/FASTING Creatinine 1.7 mg/dL 0.6-1.3 [facility] Urea nitrogen [Mass/volume] in Serum or Plasma 28 mg/dL 7-18 [facility] ([facility]) Chloride [Moles/volume] in Serum or Plasma 102 meq/L 98-107 [facility] ([facility]) Potassium [Moles/volume] in Serum or Plasma 4.8 meq/L 3.5-5.1 [facility] ([facility]) Sodium [Moles/volume] in Serum or Plasma 139 meq/L 136-145 [facility] ([facility]) Carbon dioxide, total [Moles/volume] in Serum or Plasma 26 meq/L 21 -32 [facility] ([facility]) Calcium [Mass/volume] in Serum or Plasma 9.3 mg/dL 8.5-10.1 [facility] ([facility]) Glomerular filtration rate/1.73 sq M pre dicted among non-blacks [Volume Rate/Area] in Serum or Plasma by Creatinine-based formula (MDRD) 28 mL/min [facility] ([facility]) Glomerular filtration rate/1.73 sq M pre dicted among blacks [Volume Rate/Area] in Serum or Plasma by Creatinine-based formula (MDRD) 34 mL/min [facility] ([facility]) <content>CHRONIC KIDNEY DISEASE STAGING PER NKF</content>
<content></content>
<content>STAGE I & II GFR >= 60 NORMAL TO MILDLY DECREASED</content>
<content>STAGE III GFR 30-59 MODERATELY DECREASED</content>
<content>STAGE IV GFR 15-29 SEVERELY DECREASED</content>
<content>STAGE V GFR <15 VERY LITTLE GFR LEFT</content>
<content>ESRD GFR <15 ON [employer]BESTOS WORKER HELPER</content>
<content></content> ID Date Data Source [id number] 10/18/2020 11:03:00 AM EDT [facility] ([facility]) Name Value Range Interpretation Code Description Data Corina rce(s) Supporting Document(s) Magnesium 1.8 mg/dL 1.8-2.4 [facility] ID Date Data Source [id number] 10/18/2020 11:03:00 AM EDT [facility] Name Value Range Interpretation Code Description Data Corina rce(s) Supporting Document(s) Glucose mean value [Mass/volume] in Blood Estimated fr om glycated hemoglobin 171 mg/dL 60-[address] [facility] ([facility] Hemoglobin A1c/Hemoglobin.total in Blood 7.6 % [facility] ([facility]) Lab Result Notes: Pre-Diabetes 5.7 - 6.4 % Diabetes = or > 6.5% ID Date Data Source [id number] 10/18/2020 11:03:00 AM EDT [facility] ([facility]) Name Value Range Interpretation Code Description Data Corina rce(s) Supporting Document(s) Leukocytes [#/volume] in Blood by Automated count 11.9 x10*3/UL 4.1-[address] [facility] ([facility]) NOTE: CBC VERIFIED Erythrocytes [#/volume] in Blood by Automated count 3.97 x10*6/UL 4.2 0-6.30 [facility] Hemoglobin [Mass/volume] in Blood 11.5 g/dL 12.0-18.0 [facility] ([facility]) Hematocrit [Volume Fraction] of Blood by Automated count 33.7 % 3 7.0-51.0 [facility] ([facility]) MCV 84.9 fL 80.0-97.0 [facility] ([facility]) MCH 29.0 pg 26.0-32.0 [facility] ([facility]) MCHC 34.1 g/dL 31.0-38.0 [facility] ([facility]) Erythrocyte distribution width [Ratio] by Automated count 13.1 % 11.6-13.7 [facility] ([facility]) Platelets [#/volume] in Blood by Automated count 335 x10*3/UL 140-440 [facility] ([facility]) MPV 8.5 FL 7.8-11.0 [facility] ([facility]) Mid % 3.6 % 1.7-9.3 [facility] ([facility]) Lymph % 14.1 % 10.0-58.5 [facility] ([facility]) Neut % 82.3 % 37.0-92.0 [facility] ([facility]) Lymph # 1.6 x10*3/UL 0.6-4.1 [facility] ([facility]) Mid # 0.5 x10*3/UL 0.1-0.6 [facility] ([facility]) Neut # 9.8 x10*3/UL 2.0-7.8 [facility] ([facility]) ID Date Data Source [id number] 05/20/2020 12:00:00 PM EST [facility] ([facility]) Name Value Range Interpretation Code Description Data Corina rce(s) Supporting Document(s) Urine Creatinine 124.1 mg/dL 30.0-125.0 [facility] ([facility]) Microalbumin Urine 188.1 mg/L 1.3-20.0 [facility] ([facility]) NOTE: DILUTED AND VERIFIED Microalb/Creat Ratio 151.6 ug/mg 0.0-30.0 [facility] ([facility]) ID Date Data Source [id number] 05/20/2020 12:00:00 PM EST [facility] ([facility]) Name Value Range Interpretation Code Description Data Corina rce(s) Supporting Document(s) Urine Color Laboratory test result [facility] ([facility]) Urine Appearance Laboratory test result Abnormal (applies to non-numeric results) [facility] ([facility] Urine PH 8.0 units 5.0-9.0 [facility] Specific gravity of Urine 1.010 1.005-1.030 [facility] ([facility] Urine Blood Laboratory test result Abnormal (applies to non-numeric results) [facility] ([facility]) Urine Leukocytes Laboratory test result Abnormal (applies to non-numeric results) [facility] Urine Protein Laboratory test result 0-0 Abnormal (applies to non-numeric results) [facility] Glucose [Presence] in Urine Laboratory test result [facility] ([facility]) Urine Nitrite Laboratory test result Abnormal (applies to non-numeric results) [facility] ([facility]) Urine Ketone Laboratory test result [facility] ([facility]) Bilirubin.total [Mass/volume] in Serum or Plasma Laboratory test resu lt [facility] Urine Urobilinogen 0.2 mg/dL 0.2-1.[address] [facility] ([facility]) ID Date Data Source [id number] 05/19/2020 10:27:00 AM EST [facility] ([facility]) Name Value Range Interpretation Code Description Data Corina rce(s) Supporting Document(s) Hemoglobin A1c/Hemoglobin.total in Blood 7.1 % [facility] ([facility]) Lab Result Notes: Pre-Diabetes 5.7 - 6.4 % Diabetes = or > 6.5% Glucose mean value [Mass/volume] in Blood Estimated fr om glycated hemoglobin 157 mg/dL 60-110 [facility] ID Date Data Source [id number] 05/19/2020 10:26:00 AM EST [facility]) Name Value Range Interpretation Code Description Data Corina rce(s) Supporting Document(s) Thyrotropin [Units/volume] in Serum or Plasma by Detec tion limit <= 0.05 mIU/L 3.14 uIU/mL 0.36-3.74 [facility] ([facility] ) ID Date Data Source [id number] 05/19/2020 10:26:00 AM EST [facility] ([facility]) Name Value Range Interpretation Code Description Data Corina rce(s) Supporting Document(s) Cholesterol [Mass/volume] in Serum or Plasma 166 mg/dL 131-200 [facility] ([facility]) Cholesterol in HDL [Mass/volume] in Serum or Plasma 56 mg/dL 35-60 [facility] ([facility]) Triglyceride [Mass/volume] in Serum or Plasma 124 mg/dL 30-150 [facility] ([facility]) Cholesterol in LDL [Mass/volume] in Serum or Plasma by calcu lation 85 CALC 50-159 [facility] ([facility]) ID Date Data Source [id number] 05/19/2020 10:26:00 AM EST [facility] ([facility]) Name Value Range Interpretation Code Description Data Corina rce(s) Supporting Document(s) Glucose [Mass/volume] in Serum or Plasma 134 mg/dL 74-99 [facility] ([facility]) 100-125 mg/dL PRE-DIABETES/FASTING >126 mg/dL DIABETES/FASTING Urea nitrogen [Mass/volume] in Serum or Plasma 23 mg/dL 7-18 [facility] ([facility]) Creatinine 1.6 mg/dL 0.6-1.3 [facility] Sodium [Moles/volume] in Serum or Plasma 138 meq/L 136-145 [facility] ([facility]) Potassium [Moles/volume] in Serum or Plasma 5.0 meq/L 3.5-5.1 [facility] ([facility]) Chloride [Moles/volume] in Serum or Plasma 102 meq/L 98-107 [facility] ([facility]) Calcium [Mass/volume] in Serum or Plasma 9.3 mg/dL 8.5-10.1 [facility] ([facility]) Carbon dioxide, total [Moles/volume] in Serum or Plasma 28 meq/L 21 -32 [facility] ([facility]) Total Bilirubin 0.6 mg/dL 0.2-1.0 [facility] ([facility]) Alkaline phosphatase isoenzyme [Units/volume] in Serum or Pl asma 100 mg/dL 46-116 [facility] ([facility]) Alanine aminotransferase [Enzymatic activity/volume] in Seru m or Plasma 16 U/L 12-78 [facility] ([facility]) Aspartate aminotransferase [Enzymatic activity/volume] in Serum or Plasma 15 U/L 15-37 [facility] ([facility] ) Albumin [Mass/volume] in Serum or Plasma 3.5 g/dL 3.4-5.0 [facility] ([facility]) Proteinase 3 Ab [Units/volume] in Serum 7.6 g/dL 6.4-8.2 [facility] ([facility]) A/G Ratio 0.85 CALC 1.00-1.90 [facility] Glomerular filtration rate/1.73 sq M pre dicted among blacks [Volume Rate/Area] in Serum or Plasma by Creatinine-based formula (MDRD) 37 mL/min [facility] ([facility]) <content>CHRONIC KIDNEY DISEASE STAGING PER NKF</content>
<content></content>
<content>STAGE I & II GFR >= 60 NORMAL TO MILDLY DECREASED</content>
<content>STAGE III GFR 30-59 MODERATELY DECREASED</content>
<content>STAGE IV GFR 15-29 SEVERELY DECREASED</content>
<content>STAGE V GFR <15 VERY LITTLE GFR LEFT</content>
<content>ESRD GFR <15 ON [employer]</content>
<content></content> Glomerular filtration rate/1.73 sq M pre dicted among non-blacks [Volume Rate/Area] in Serum or Plasma by Creatinine-based formula (MDRD) 31 mL/min [facility] ([facility]) ID Date Data Source [id number] 05/19/2020 10:26:00 AM EST [facility] ([facility]) Name Value Range Interpretation Code Description Data Corina rce(s) Supporting Document(s) Creatine kinase [Enzymatic activity/volume] in Serum or Plasma 82 U /L 26-192 [facility] ([facility]) Magnesium 1.7 mg/dL 1.8-2.4 [facility]) ID Date Data Source [id number] 05/19/2020 10:26:00 AM EST [facility] ([facility]) Name Value Range Interpretation Code Description Data Corina rce(s) Supporting Document(s) Leukocytes [#/volume] in Blood by Automated count 10.6 x10*3/UL 4.1-1 0.9 [facility] ([facility]) Hemoglobin [Mass/volume] in Blood 11.7 g/dL 12.0-18.0 [facility] ([facility]) NOTE: RESULT VERIFIED. Erythrocytes [#/volume] in Blood by Automated count 3.98 x10*6/UL 4.2 0-6.30 [facility] ([facility] Hematocrit [Volume Fraction] of Blood by Automated count 34.5 % 3 7.0-51.0 [facility] ([facility]) MCV 86.7 fL 80.0-97.0 [facility] MCH 29.6 pg 26.0-32.0 [facility]) MCHC 34.1 g/dL 31.0-38.0 [facility] ([facility]) Erythrocyte distribution width [Ratio] by Automated count 13.7 % 11.6-13.7 [facility] ([facility]) Platelets [#/volume] in Blood by Automated count 353 x10*3/UL 140-440 [facility] ([facility]) Mid % 4.2 % 1.7-9.3 [facility] Lymph % 14.1 % 10.0-58.5 [facility]) MPV 8.4 FL 7.8-11.0 [facility] Neut % 81.7 % 37.0-92.0 [facility] Lymph # 1.5 x10*3/UL 0.6-4.1 [facility] ([facility]) Neut # 8.7 x10*3/UL 2.0-7.8 [facility] ([facility]) Mid # 0.4 x10*3/UL 0.1-0.6 [facility] ([facility]) Procedure Social History No Information Vital Signs ID Date Data Source UNK Name Value Range Interpretation Code Description Data Source(s) Body mass index (BMI) [Ratio] 32.9 kg/m2 32.9 k g/m2 [facility] ([facility]) Systolic blood pressure 140 mm[Hg] 140 mm[Hg] M [facility] ([facility]) RT Arm Diastolic blood pressure 60 mm[Hg] 60 mm[Hg] [facility] ([facility]) RT Arm Heart rate 80 /min 80 /min [facility] ([facility]) Body height 62.75 [in_i] 62.75 [in_i] [facility] ([facility]) 5'2.75" Body weight 184.12 [lb_av] 184.12 [lb_av] [facility] T ([facility]) Systolic blood pressure 138 mm[Hg] 138 mm[Hg] [facility] RT Arm Diastolic blood pressure 60 mm[Hg] 60 mm[Hg] [facility] ([facility]) RT Arm Heart rate 88 /min 88 /min [facility] ([facility]) Body weight 180.25 [lb_av] 180.25 [lb_av] [facility] T ([facility]) Body mass index (BMI) [Ratio] 32.2 kg/m2 32.2 k g/m2 [facility] ([facility]) Body height 62.75 [in_i] 62.75 [in_i] [facility]) 5'2.75" Systolic blood pressure 122 mm[Hg] 122 mm[Hg] [facility] Diastolic blood pressure 60 mm[Hg] 60 mm[Hg] [facility] ([facility]) Heart rate 75 /min 75 /min [facility] ([facility]) Body height 62.75 [in_i] 62.75 [in_i] [facility] 5'2.75" Body weight 177.38 [lb_av] 177.38 [lb_av] MAURO [facility] ([facility]) Oxygen saturation in Arterial blood by Pulse oximetry 95 % 95 % [facility] ([facility]) Air Body mass index (BMI) [Ratio] 31.7 kg/m2 31.7 k g/m2 [facility])
[2021-05-15] MEDS ORDERED: METO1TAB7 PO (12:03)
[2021-05-15] MEDS ORDERED: OMEP-218 PO (12:03)
[2021-05-15] MEDS ORDERED: MAGN250T22 PO ×2 (12:03→17:49)
[2021-05-15] MEDS ORDERED: LOSA50TA88 PO (12:03)
[2021-05-15] MEDS ORDERED: SIMV20TA22 PO (12:03)
[2021-05-15 13:13] LABS: BASO % 0.3 % (0.0-1.0); HEMATOCRIT 40.3 % (36.0-47.0); HEMOGLOBIN 13.1 g/dl (12.0-15.5); LYMPH # 0.7 10^3/uL (1.5-5.0); LYMPH % 4.4 % (24.0-44.0); MEAN CORPUSCULAR HEMOGLOBIN 28.4 pg (27.0-33.0); MEAN CORPUSCULAR HGB CONC 32.5 g/dl (32.0-36.5); MEAN CORPUSCULAR VOLUME 87.4 fl (80.0-96.0); MONO # 0.9 10^3/uL (0.0-0.8); MONO % 5.8 % (2.0-8.0); NEUTROPHILS # 13.4 10^3/uL (1.5-8.5); NEUTROPHILS % 88.9 % (36.0-66.0); PLATELET COUNT, AUTOMATED 403 10^3/uL (150-450); RED BLOOD COUNT 4.61 10^6/uL (4.00-5.40); WHITE BLOOD COUNT 15.1 10^3/uL (4.0-10.0)
--- NOTE | 2021-05-15 13:26 | REP ---
INDICATION: abdominal distention. COMPARISON: None. TECHNIQUE: Flat upright views. FINDINGS: There are dilated small bowel loops centrally in the upper abdomen with air-fluid levels consistent with a proximal to mid small bowel obstruction pattern. Scattered gas and stool in the colon and other small bowel loops. No gross evidence for free air. Degenerative changes are seen throughout the spine pelvis and hips. There are some pelvic phleboliths evident. No gross mass. Bilateral costal cartilaginous calcifications noted. IMPRESSION: 1. Dilated small bowel loops with air-fluid levels in the mid and upper abdomen suggesting mid to proximal small bowel obstructive pattern. Focal ileus could also be present. No gross evidence for free air or mass. 2. Degenerative changes in the spine, pelvis and hips. <Electronically signed by Chin Yadav > 05/15/21 [id number]
[2021-05-15 13:47] LABS: BLOOD UREA NITROGEN 45 MG/DL (7-18); CARBON DIOXIDE LEVEL 27 MEQ/L (21-32); CHLORIDE LEVEL 98 MEQ/L (98-107); CK-MB VALUE MASS 1.5 NG/ML (<3.6); CPK CREATINE PHOSPHOKINASE 126 U/L (26-192); CREATININE FOR GFR 1.81 MG/DL (0.55-1.30); GLOMERULAR FILTRATION RATE 28.2 (>32); GLUCOSE, FASTING 208 MG/DL (70-100); MAGNESIUM LEVEL 2.5 MG/DL (1.8-2.4); MB/CK RELATIVE INDEX 1.19 (< OR =4); POTASSIUM SERUM 4.5 MEQ/L (3.5-5.1); SODIUM LEVEL 133 MEQ/L (136-145); TROPONIN I < 0.02 NG/ML (< 0.10)
[2021-05-15] MEDS ORDERED: NS 500 ML IV ONE (13:50)
[2021-05-15 14:49] LABS: RSV AMPLIFICATION NEGATIVE (NEGATIVE)
--- OUTSIDE RECORDS SUMMARY | 2021-05-15 14:50 | CCD ---
Author Author [facility] Organization [facility] Address Unknown Phone Unavailable Care Team Providers Care Web Applications Administrator Name Role Phone Xenia Shah MD Unavailable [...] is protected by Article 27-F of the [facility] Public Health law. If you continue you may have access to information: Regarding HIV / AIDS; Provided by facilities licensed or operated by the [facility] Office of Mental Health; or Provided by the [facility] Office for People With Developmental Disabilities. If such information is present, then the following [facility] mandated warning applies: This information has [...] law may result in a fine or mcfp sentence or both. A general authorization for [...] Attender: Carol Albright 10:30:00 AM EDT [facility] ([facility] ) Outpatient Attender: Carol Albright 09:30:00 AM EST [facility] ([facility] ) Immunizations Vaccine Date Status Description Data Source(s) COVID-19 VACCINE Moderna 10/12/2020 12:00:00 AM EDT completed [facility] Vaccine Series Complete: YESThis Data wa s Submitted to [facility] [employer]. COVID-19 VACCINE, MRNA-1273, LNP-S (MODERNA)/PF 10/12/2020 1 2:00:00 AM EDT completed [facility] COVID-19 VACCINE, MRNA-1273, LNP-S (MODERNA)/PF 09/08/2020 1 2:00:00 AM EST completed [facility] Shingrix Zoster Vaccine (HZV), Recombinant, Subunit, A djuvanted 05/19/2020 01:55:00 PM EST completed [facility]) This CVX code allows reporting of a vacc ination when formulation is unknown (for example, when recording a Influenza vaccination when noted on a vaccination card) 05/02/2020 11:03:00 AM EDT completed [facility] ([facility]) Medications Medication Brand Name Start Date [...] type / Coverage type Policy ID Covered constitution party ID Covered constitution party's relationship to valladares Policy [place] Plan Information Medicare Natl Govt Servic Medicare Primary [id number] Self [id number] Medicare Natl Govt Servic Medicare Primary [id number] Self [id number] Medicare Natl Govt Servic Medicare Primary [id number] Self [id number] Medicare Natl Govt Servic Medicare Primary [id number] Self [id number] Medicare Natl Govt Servic Medicare Primary [id number] Self [id number] MEDICARE [id number] SP [id number] D Medicare Natl Govt Servic Medicare Primary [id number] Self [id number] Medicare Natl Govt Servic Medicare Primary [id number] Self [id number] Medicare Natl Govt Servic Medicare Primary [id number] Self [id number] Medicare Natl Govt Servic Medicare Primary [id number] Self [id number] Medicare Natl Govt Servic Medicare Primary [id number] Self [id number] Medicare Natl Govt Servic Medicare Primary [id number] Self [id number] Medicare Natl Govt Servic Medicare Primary [id number] Self [id number] Medicare Natl Govt Servic Medicare Primary [id number] Self [id number] Medicare Natl Govt Servic Medicare Primary [id number] Self [id number] D WPS For Life Medigap Part B [id number] Family Depende nt WPS For Life Medigap Part B [id number] Family Dependent [id number] WPS For Life Medigap Part B [id number] Family Dependent [id number] WPS For Life Medigap Part B [id number] Family Dependent [id number] For Life WPS Medigap Part B [id number] Family Dependent [id number] Medicare Natl Gov't Servi Medicare Primary [id number] Self [id number] WPS For Life Medigap Part B [id number] Family Dependent [id number] WPS For Life Medigap Part B [id number] Family Dependent [id number] WPS For Life Medigap Part B [id number] Family Dependent [id number] WPS For Life Medigap Part B [id number] Family Dependent [id number] FOR LIFE [id number] SP 11 [id number] WPS For Life Medigap Part B [id number] Family Dependent [id number] WPS For Life Medigap Part B [id number] Family Dependent [id number] WPS For Life Medigap Part B [id number] Family Dependent [id number] WPS For Life Medigap Part B [id number] Family Dependent [id number] WPS For Life Medigap Part B [id number] Family Dependent [id number] WPS For Life Medigap Part B [id number] Family Dependent [id number] Problems, Conditions, and Diagnoses No Information Surgeries/Procedures Procedure Description Date Indications Data Source(s) OFFICE OUTPATIENT VISIT 25 MINUTES 10/18/2020 12:00:00 AM EDT [facility] ([facility]) Results ID Date Data Source [id number] 02/14/2021 11:19:00 AM EDT [facility] ([facility]) Name Value Range Interpretation Code Description Data Corina rce(s) Supporting Document(s) Glucose [Mass/volume] in Serum or Plasma 122 mg/dL 74-99 [facility] ([facility]) 100-125 mg/dL PRE-DIABETES/FASTING >126 mg/dL DIABETES/FASTING Urea nitrogen [Mass/volume] in Serum or Plasma 33 mg/dL 7-18 [facility] ([facility]) Creatinine 1.8 mg/dL 0.6-1.3 [facility] Sodium [Moles/volume] in Serum or Plasma 139 meq/L 136-145 [facility] ([facility]) Potassium [Moles/volume] in Serum or Plasma 5.2 meq/L 3.5-5.1 [facility] ([facility]) NOTE: RESULT VERIFIED. NO VISIBLE HEMOLYSIS. Chloride [Moles/volume] in Serum or Plasma 102 meq/L 98-107 [facility] ([facility]) Carbon dioxide, total [Moles/volume] in Serum or Plasma 27 meq/L 21 -32 [facility] ([facility]) Calcium [Mass/volume] in Serum or Plasma 10.1 mg/dL 8.5-10.1 [facility] Glomerular filtration rate/1.73 sq M pre dicted among non-blacks [Volume Rate/Area] in Serum or Plasma by Creatinine-based formula (MDRD) 27 mL/min [facility] Glomerular filtration rate/1.73 sq M pre dicted among blacks [Volume Rate/Area] in Serum or Plasma by Creatinine-based formula (MDRD) 32 mL/min [facility] <content>CHRONIC KIDNEY DISEASE STAGING PER NKF</content>
<content></content>
<content>STAGE I & II GFR >= 60 NORMAL TO MILDLY DECREASED</content>
<content>STAGE III GFR 30-59 MODERATELY DECREASED</content>
<content>STAGE IV GFR 15-29 SEVERELY DECREASED</content>
<content>STAGE V GFR <15 VERY LITTLE GFR LEFT</content>
<content>ESRD GFR <15 ON CANS VACUUM TESTER</content>
<content></content> ID Date Data Source [id number] 02/14/2021 11:19:00 AM EDT [facility] ([facility]) Name Value Range Interpretation Code Description Data Corina rce(s) Supporting Document(s) Magnesium 2.0 mg/dL 1.8-2.4 [facility]) ID Date Data Source [id number] 02/14/2021 11:19:00 AM EDT [facility] ([facility]) Name Value Range Interpretation Code Description Data Corina rce(s) Supporting Document(s) Hemoglobin A1c/Hemoglobin.total in Blood 7.5 % [facility] Lab Result Notes: Pre-Diabetes 5.7 - 6.4 % Diabetes = or > 6.5% Glucose mean value [Mass/volume] in Blood Estimated fr om glycated hemoglobin 169 mg/dL 60-110 [facility] ([facility] ) ID Date Data Source [id number] 02/14/2021 11:19:00 AM EDT [facility] ([facility]) Name Value Range Interpretation Code Description Data Corina rce(s) Supporting Document(s) Leukocytes [#/volume] in Blood by Automated count 10.4 x10*3/UL 4.1-1 0.9 [facility] ([facility]) NOTE: CBC VERIFEID Hemoglobin [Mass/volume] in Blood 11.8 g/dL 12.0-18.0 [facility] Erythrocytes [#/volume] in Blood by Automated count 4.09 x10*6/UL 4.2 0-6.30 [facility] Hematocrit [Volume Fraction] of Blood by Automated count 34.8 % 3 7.0-51.0 [facility] MCV 84.9 fL 80.0-97.0 [facility]) MCH 28.8 pg 26.0-32.0 [facility] ([facility]) Platelets [#/volume] in Blood by Automated count 369 x10*3/UL 140-440 [facility] MCHC 33.9 g/dL 31.0-38.0 [facility] ([facility]) Erythrocyte distribution width [Ratio] by Automated count 13.6 % 11.6-13.7 [facility] ([facility]) MPV 8.4 FL 7.8-11.0 [facility] ([facility]) Lymph % 17.1 % 10.0-58.5 [facility] ([facility]) Neut % 77.8 % 37.0-92.0 [facility]) Lymph # 1.7 x10*3/UL 0.6-4.1 [facility] ([facility]) Mid % 5.1 % 1.7-9.3 [facility] ([facility]) Neut # 8.1 x10*3/UL 2.0-7.8 [facility] ([facility]) Mid # 0.6 x10*3/UL 0.1-0.6 [facility] ([facility]) ID Date Data Source [id number] 02/14/2021 11:19:00 AM EDT [facility] ([facility]) Name Value Range Interpretation Code Description Data Corina rce(s) Supporting Document(s) Hemoglobin A1c/Hemoglobin.total in Blood Laboratory test result [facility] ([facility]) Magnesium, Serum Laboratory test result [facility] ([facility]) ID Date Data Source [id number] 10/18/2020 11:03:00 AM EDT [facility] ([facility]) Name Value Range Interpretation Code Description Data Corina rce(s) Supporting Document(s) Glucose [Mass/volume] in Serum or Plasma 120 mg/dL 74-99 [facility] ([facility]) 100-125 mg/dL PRE-DIABETES/FASTING >126 mg/dL DIABETES/FASTING Creatinine 1.7 mg/dL 0.6-1.3 [facility] Urea nitrogen [Mass/volume] in Serum or Plasma 28 mg/dL 7-18 [facility] ([facility]) Chloride [Moles/volume] in Serum or Plasma 102 meq/L 98-107 [facility] ([facility]) Potassium [Moles/volume] in Serum or Plasma 4.8 meq/L 3.5-5.1 [facility] ([facility]) Sodium [Moles/volume] in Serum or Plasma 139 meq/L 136-145 [facility] ([facility]) Carbon dioxide, total [Moles/volume] in Serum or Plasma 26 meq/L 21 -32 [facility] ([facility]) Calcium [Mass/volume] in Serum or Plasma 9.3 mg/dL 8.5-10.1 [facility] ([facility]) Glomerular filtration rate/1.73 sq M pre dicted among non-blacks [Volume Rate/Area] in Serum or Plasma by Creatinine-based formula (MDRD) 28 mL/min [facility] ([facility]) Glomerular filtration rate/1.73 sq M pre dicted among blacks [Volume Rate/Area] in Serum or Plasma by Creatinine-based formula (MDRD) 34 mL/min [facility] ([facility]) <content>CHRONIC KIDNEY DISEASE STAGING PER NKF</content>
<content></content>
<content>STAGE I & II GFR >= 60 NORMAL TO MILDLY DECREASED</content>
<content>STAGE III GFR 30-59 MODERATELY DECREASED</content>
<content>STAGE IV GFR 15-29 SEVERELY DECREASED</content>
<content>STAGE V GFR <15 VERY LITTLE GFR LEFT</content>
<content>ESRD GFR <15 ON CANS VACUUM TESTER</content>
<content></content> ID Date Data Source [id number] 10/18/2020 11:03:00 AM EDT [facility] ([facility]) Name Value Range Interpretation Code Description Data Corina rce(s) Supporting Document(s) Magnesium 1.8 mg/dL 1.8-2.[address] [facility] ID Date Data Source [id number] 10/18/2020 11:03:00 AM EDT [facility] ([facility]) Name Value Range Interpretation Code Description Data Corina rce(s) Supporting Document(s) Glucose mean value [Mass/volume] in Blood Estimated fr om glycated hemoglobin 171 mg/dL 60-110 [facility] Hemoglobin A1c/Hemoglobin.total in Blood 7.6 % [facility] ([facility]) Lab Result Notes: Pre-Diabetes 5.7 - 6.4 % Diabetes = or > 6.5% ID Date Data Source [id number] 10/18/2020 11:03:00 AM EDT [facility] ([facility]) Name Value Range Interpretation Code Description Data Corina rce(s) Supporting Document(s) Leukocytes [#/volume] in Blood by Automated count 11.9 x10*3/UL 4.1-1 0.9 [facility] ([facility]) NOTE: CBC VERIFIED Erythrocytes [#/volume] in Blood by Automated count 3.97 x10*6/UL 4.2 0-6.[address] [facility] ([facility]) Hemoglobin [Mass/volume] in Blood 11.5 g/dL 12.0-18.0 [facility] ([facility]) Hematocrit [Volume Fraction] of Blood by Automated count 33.7 % 3 7.0-51.0 [facility] ([facility]) MCV 84.9 fL 80.0-97.0 [facility] ([facility]) MCH 29.0 pg 26.0-32.0 [facility] ([facility]) MCHC 34.1 g/dL 31.0-38.0 [facility] ([facility]) Erythrocyte distribution width [Ratio] by Automated count 13.1 % 11.6-13.7 [facility] Platelets [#/volume] in Blood by Automated count 335 x10*3/UL 140-440 [facility] ([facility]) MPV 8.5 FL 7.8-11.0 [facility]) Mid % 3.6 % 1.7-9.3 [facility] ([facility]) Lymph % 14.1 % 10.0-58.5 [facility] ([facility]) Neut % 82.3 % 37.0-92.0 [facility] Lymph # 1.6 x10*3/UL 0.6-4.1 [facility] ([facility]) Mid # 0.5 x10*3/UL 0.1-0.6 [facility] ([facility]) Neut # 9.8 x10*3/UL 2.0-7.8 [facility] ([facility]) ID Date Data Source [id number] 05/20/2020 12:00:00 PM EST [facility] ([facility]) Name Value Range Interpretation Code Description Data Corina rce(s) Supporting Document(s) Urine Creatinine 124.1 mg/dL 30.0-125.0 [facility] ([facility]) Microalbumin Urine 188.1 mg/L 1.3-20.0 [facility] ([facility]) NOTE: DILUTED AND VERIFIED Microalb/Creat Ratio 151.6 ug/mg 0.0-30.0 [facility] ([facility]) ID Date Data Source [id number] 05/20/2020 12:00:00 PM EST [facility] ([facility]) Name Value Range Interpretation Code Description Data Corina rce(s) Supporting Document(s) Urine Color Laboratory test result [facility] Urine Appearance Laboratory test result Abnormal (applies to non-numeric results) [facility] Urine PH 8.0 units 5.0-9.0 [facility] Specific gravity of Urine 1.010 1.005-1.030 [facility] Urine Blood Laboratory test result Abnormal (applies to non-numeric results) [facility] ([facility]) Urine Leukocytes Laboratory test result Abnormal (applies to non-numeric results) [facility] Urine Protein Laboratory test result 0-0 Abnormal (applies to non-numeric results) [facility] Glucose [Presence] in Urine Laboratory test result [facility] ([facility]) Urine Nitrite Laboratory test result Abnormal (applies to non-numeric results) [facility] ([facility]) Urine Ketone Laboratory test result [facility] Bilirubin.total [Mass/volume] in Serum or Plasma Laboratory test resu lt [facility] ([facility]) Urine Urobilinogen 0.2 mg/dL 0.2-1.0 [facility] ([facility]) ID Date Data Source [id number] 05/19/2020 10:27:00 AM EST [facility] Name Value Range Interpretation Code Description Data Corina rce(s) Supporting Document(s) Hemoglobin A1c/Hemoglobin.total in Blood 7.1 % [facility] Lab Result Notes: Pre-Diabetes 5.7 - 6.4 % Diabetes = or > 6.5% Glucose mean value [Mass/volume] in Blood Estimated fr om glycated hemoglobin 157 mg/dL 60-[address] [facility] ([facility] ) ID Date Data Source [id number] 05/19/2020 10:26:00 AM EST [facility] Name Value Range Interpretation Code Description Data Corina rce(s) Supporting Document(s) Thyrotropin [Units/volume] in Serum or Plasma by Detec tion limit <= 0.05 mIU/L 3.14 uIU/mL 0.36-3.74 [facility] ([facility] ) ID Date Data Source [id number] 05/19/2020 10:26:00 AM EST [facility] ([facility]) Name Value Range Interpretation Code Description Data Corina rce(s) Supporting Document(s) Cholesterol [Mass/volume] in Serum or Plasma 166 mg/dL 131-200 [facility] ([facility]) Cholesterol in HDL [Mass/volume] in Serum or Plasma 56 mg/dL 35-60 [facility] ([facility]) Triglyceride [Mass/volume] in Serum or Plasma 124 mg/dL 30-150 [facility] ([facility]) Cholesterol in LDL [Mass/volume] in Serum or Plasma by calcu lation 85 CALC 50-159 [facility] ([facility]) ID Date Data Source [id number] 05/19/2020 10:26:00 AM EST [facility] ([facility]) Name Value Range Interpretation Code Description Data Corina rce(s) Supporting Document(s) Glucose [Mass/volume] in Serum or Plasma 134 mg/dL 74-99 [facility] ([facility]) 100-125 mg/dL PRE-DIABETES/FASTING >126 mg/dL DIABETES/FASTING Urea nitrogen [Mass/volume] in Serum or Plasma 23 mg/dL 7-18 [facility] ([facility]) Creatinine 1.6 mg/dL 0.6-1.3 [facility] Sodium [Moles/volume] in Serum or Plasma 138 meq/L 136-145 [facility] ([facility]) Potassium [Moles/volume] in Serum or Plasma 5.0 meq/L 3.5-5.1 [facility] ([facility]) Chloride [Moles/volume] in Serum or Plasma 102 meq/L 98-107 [facility] ([facility]) Calcium [Mass/volume] in Serum or Plasma 9.3 mg/dL 8.5-10.1 [facility] ([facility]) Carbon dioxide, total [Moles/volume] in Serum or Plasma 28 meq/L 21 -32 [facility] ([facility]) Total Bilirubin 0.6 mg/dL 0.2-1.0 [facility] ([facility]) Alkaline phosphatase isoenzyme [Units/volume] in Serum or Pl asma 100 mg/dL 46-116 [facility] ([facility]) Alanine aminotransferase [Enzymatic activity/volume] in Seru m or Plasma 16 U/L 12-78 [facility] ([facility]) Aspartate aminotransferase [Enzymatic activity/volume] in Serum or Plasma 15 U/L 15-37 [facility] ([facility] ) Albumin [Mass/volume] in Serum or Plasma 3.5 g/dL 3.4-5.0 [facility] ([facility]) Proteinase 3 Ab [Units/volume] in Serum 7.6 g/dL 6.4-8.2 [facility] ([facility]) A/G Ratio 0.85 CALC 1.00-1.90 [facility] Glomerular filtration rate/1.73 sq M pre dicted among blacks [Volume Rate/Area] in Serum or Plasma by Creatinine-based formula (MDRD) 37 mL/min [facility] <content>CHRONIC KIDNEY DISEASE STAGING PER NKF</content>
<content></content>
<content>STAGE I & II GFR >= 60 NORMAL TO MILDLY DECREASED</content>
<content>STAGE III GFR 30-59 MODERATELY DECREASED</content>
<content>STAGE IV GFR 15-29 SEVERELY DECREASED</content>
<content>STAGE V GFR <15 VERY LITTLE GFR LEFT</content>
<content>ESRD GFR <15 ON CANS VACUUM TESTER</content>
<content></content> Glomerular filtration rate/1.73 sq M pre dicted among non-blacks [Volume Rate/Area] in Serum or Plasma by Creatinine-based formula (MDRD) 31 mL/min [facility] ([facility]) ID Date Data Source [id number] 05/19/2020 10:26:00 AM EST [facility] ([facility]) Name Value Range Interpretation Code Description Data Corina rce(s) Supporting Document(s) Creatine kinase [Enzymatic activity/volume] in Serum or Plasma 82 U /L 26-192 [facility] ([facility]) Magnesium 1.7 mg/dL 1.8-2.4 [facility]) ID Date Data Source [id number] 05/19/2020 10:26:00 AM EST [facility] ([facility]) Name Value Range Interpretation Code Description Data Corina rce(s) Supporting Document(s) Leukocytes [#/volume] in Blood by Automated count 10.6 x10*3/UL 4.1-1 0.9 [facility] ([facility]) Hemoglobin [Mass/volume] in Blood 11.7 g/dL 12.0-18.0 [facility] ([facility]) NOTE: RESULT VERIFIED. Erythrocytes [#/volume] in Blood by Automated count 3.98 x10*6/UL 4.2 0-6.30 [facility] Hematocrit [Volume Fraction] of Blood by Automated count 34.5 % 3 7.0-51.0 [facility] ([facility]) MCV 86.7 fL 80.0-97.0 [facility] MCH 29.6 pg 26.0-32.0 [facility]) MCHC 34.1 g/dL 31.0-38.0 [facility] ([facility]) Erythrocyte distribution width [Ratio] by Automated count 13.7 % 11.6-13.7 [facility] ([facility]) Platelets [#/volume] in Blood by Automated count 353 x10*3/UL 140-440 [facility] ([facility]) Mid % 4.2 % 1.7-9.3 [facility] Lymph % 14.1 % 10.0-58.5 [facility]) MPV 8.4 FL 7.8-11.0 [facility]) Neut % 81.7 % 37.0-92.0 [facility] Lymph # 1.5 x10*3/UL 0.6-4.1 [facility] ([facility]) Neut # 8.7 x10*3/UL 2.0-7.8 [facility] ([facility]) Mid # 0.4 x10*3/UL 0.1-0.6 [facility] ([facility]) Procedure Social History No Information Vital Signs ID Date Data Source UNK Name Value Range Interpretation Code Description Data Source(s) Body mass index (BMI) [Ratio] 32.9 kg/m2 32.9 k g/m2 [facility] ([facility]) Systolic blood pressure 140 mm[Hg] 140 mm[Hg] M [facility] ([facility]) RT Arm Diastolic blood pressure 60 mm[Hg] 60 mm[Hg] [facility] ([facility]) RT Arm Heart rate 80 /min 80 /min [facility] ([facility]) Body height 62.75 [in_i] 62.75 [in_i] [facility] ([facility]) 5'2.75" Body weight 184.12 [lb_av] 184.12 [lb_av] [facility] ([facility]) Systolic blood pressure 138 mm[Hg] 138 mm[Hg] [facility] RT Arm Diastolic blood pressure 60 mm[Hg] 60 mm[Hg] [facility] ([facility]) RT Arm Heart rate 88 /min 88 /min [facility] ([facility]) Body weight 180.25 [lb_av] 180.25 [lb_av] [facility] ([facility]) Body mass index (BMI) [Ratio] 32.2 kg/m2 32.2 k g/m2 [facility] ([facility]) Body height 62.75 [in_i] 62.75 [in_i] [facility] ([facility]) 5'2.75" Systolic blood pressure 122 mm[Hg] 122 mm[Hg] [facility] Diastolic blood pressure 60 mm[Hg] 60 mm[Hg] [facility] ([facility]) Heart rate 75 /min 75 /min [facility] ([facility] own [facility]) Body height 62.75 [in_i] 62.75 [in_i] MEDENT ([facility]) 5'2.75" Body weight 177.38 [lb_av] 177.38 [lb_av] MAURO Hernandez ([facility]) Oxygen saturation in Arterial blood by Pulse oximetry 95 % 95 % LISA ([facility]) Air Body mass index (BMI) [Ratio] 31.7 kg/m2 31.7 k g/m2 LISA ([facility])
[2021-05-15] MEDS: NS 1,000 ML IV SCH ×2 (15:56→19:57)
--- NOTE | 2021-05-15 16:04 | REP ---
INDICATION: further evaluate; abdominal distention. COMPARISON: Two-view abdomen 05/15/2021 TECHNIQUE: CT without oral or IV contrast with coronal and sagittal reconstructions. FINDINGS: CT ABDOMEN: Elevated right diaphragm with the compressive atelectatic change adjacent. There is curvilinear fibro atelectatic change in the left base as well. No pleural effusion. Heart size not grossly enlarged. Calcifications at the mitral valve plane and in some coronary arteries noted. No pericardial thickening or effusion. No hiatal hernia. Liver is mildly enlarged with the right hepatic lobe having an AP diameter of 18 cm. Left hepatic lobe minimally prominent. Stomach distended with fluid. There is no splenomegaly or focal lesion. No ascites. The gallbladder is mildly distended and has a laminated gallstone up to 2.8 cm in diameter. Adrenal glands are normal, pancreas is unremarkable. Kidneys show mild atrophy and sinus lipomatosis. No stone or gross mass evident. Abdominal aorta without aneurysm but some calcifications seen. No periaortic, mesenteric or other retroperitoneal pathologic sized lymphadenopathy. In the midline there is a ventral supraumbilical hernia with omental fat only. I do not see bowel herniating into this. Proximal and mid small bowel loops are distended with air-fluid levels. Appears to be transition zone centrally in the mid abdomen with loops of mid to distal ileum intact. Some mild infiltration of the mesenteric fat adjacent to some of the small bowel loops near the transition zone. Stool and gas in the right colon without collapsed left colon and a few scattered left colonic diverticula no signs of diverticulitis or colitis. Lung window review of all CT slices shows no perforation or free air in the abdomen or pelvis. There is no hydroureter or ureteral stone on either side. Bone windows show degenerative disc changes throughout thoracic and lumbar region with vacuum phenomenon at multiple levels no compression fracture or destructive lesions. Facet arthropathy diffusely in the lower lumbar spine. No spondylolysis. CT PELVIS: SI joints with some sclerosis the left greater than right sacral ala and foramina intact. Iliac wings without fracture or focal lesion there are degenerative changes at the acetabular margins with spurring right greater than left and some mild hip joint space narrowing. No evidence of AVN or fracture of the hips. The acetabulae and pubic rami are without fracture. Diverticulosis distal left colon and sigmoid without diverticulitis. Small bowel loops in the pelvis mostly normal caliber. No inguinal hernia or inguinal adenopathy, no pelvic lymphadenopathy. No inflammatory changes are seen about the cecum. There is no pelvic mass. The bladder is partially filled without mass, wall thickening or stone. No dilated distal ureters or stone. IMPRESSION: 1. Small bowel obstructive pattern mid small bowel probably in proximal to mid ileum overlying the level of the upper sacrum. Stool and gas in the right colon with a completely collapsed left colon. No perforation, free air, ascites or abscess. No pneumatosis. Midline supraumbilical ventral hernia showing only omental fat, without bowel herniation into it. 2. Degenerative changes in the spine SI joints and hips as described. No destructive lesion. 3. Elevated right diaphragm with compressive atelectatic changes and some basilar fibro atelectatic change on the left. 4. Laminated calcified gallstone up to 2.8 cm. Gallbladder partially distended no biliary dilatation. No hepatosplenomegaly. 5. Adrenal glands, pancreas, spleen stomach unremarkable. 6. Kidneys with some mild atrophy and no hydronephrosis, hydroureter, ureteral bladder or renal stone. <Electronically signed by Chin Yadav > 05/15/21 1600
[2021-05-15] MEDS ORDERED: FLUT1BLS5 INH (17:55)
[2021-05-15] MEDS ORDERED: HOME MED LIST COMPLETE! XX SCH (18:00)
[2021-05-15] MEDS ORDERED: DEXTROSE 50% 50 ML SYRINGE IV PRN (18:25)
[2021-05-15] MEDS ORDERED: GLUCAGON INJ 1MG VIAL SC PRN (18:25)
[2021-05-15] MEDS ORDERED: GLUCOSE 4GM CHEW TABLET PO PRN (18:25)
[2021-05-15] MEDS ORDERED: ONDANSETRON 4MG/2ML VIAL IV PRN (18:30)
--- OUTSIDE RECORDS SUMMARY | 2021-05-15 19:01 | CCD ---
Author Author [facility] Organization [facility] Address Unknown Phone Unavailable Care Team Providers Care Stress Engineer Name Role Phone Xenia Shah MD Unavailable [...] Viramontes MD Unavailable Xenia Viramontes MD Unavailable Xenia Viramontes MD Unavailable Xenia Viramontes MD Unavailable Unavailable Xenia Shah MD Unavailable Unavailable Xenia Shah MD Unavailable Unavailable Xenia Shah MD Unavailable Unavailable Xenia Shah MD Unavailable Unavailable Xenia Shah MD Unavailable Xenia Viramontes MD Unavailable Xenia Viramontes MD Unavailable Xenia Viramontes MD Unavailable Unavailable Xenia Shah MD Unavailable Unavailable Xenia Shah MD Unavailable Unavailable Xenia Shah MD Unavailable Unavailable Xenia Shah MD Unavailable Xenia Viramontes MD Unavailable Unavailable Xenia Shah MD Unavailable Unavailable Xenia Shah MD Unavailable Unavailable AlyssaXenia MD Unavailable Unavailable AlyssaXenia onofre MD Unavailable Unavailable AlyssaXenia MD Unavailable Unavailable AlyssaXenia MD Unavailable Unavailable AlyssaXenia MD Unavailable Unavailable AlyssaXenia MD Unavailable Unavailable AlyssaXenia MD Unavailable Unavailable AlyssaXenia MD Unavailable Unavailable AlyssaXenia MD Unavailable Unavailable AlyssaXenia molina MD Unavailable Unavailable AlyssaXenia MD Unavailable Unavailable AlyssaXenia MD Unavailable Unavailable AlyssaXenia MD Unavailable Unavailable AlyssaXenia MD Unavailable Unavailable AlyssaXenia MD Unavailable Unavailable AlyssaXenia MD Unavailable Unavailable AlyssaXenia MD Unavailable Unavailable AlyssaXenia onofre MD Unavailable Unavailable AlyssaXenia MD Unavailable Unavailable [...] Unavailable Unavailable Xenia Shah MD Unavailable Unavailable Alyssa M Carol MD Unavailable Unavailable Xenia Shah MD Unavailable Unavailable Xenia Shah MD Unavailable Unavailable Re-disclosure Warning The records that you [...] is protected by Article 27-F of the [facility] Public Health law. If you continue you may have access to information: Regarding HIV / AIDS; Provided by facilities licensed or operated by the [facility] Office of Mental Health; or Provided by the [facility] Office for People With Developmental Disabilities. If such information is present, then the following [facility] mandated warning applies: This information has [...] Attender: Carol Albright 10:30:00 AM EDT [facility] ([facility] ) Outpatient Attender: Carol Albright 09:30:00 AM EST [facility] ([facility] ) Immunizations Vaccine Date Status Description Data Source(s) COVID-19 VACCINE Moderna 10/12/2020 12:00:00 AM EDT completed [facility] Vaccine Series Complete: YESThis Data wa s Submitted to [facility] Via [employer]. COVID-19 VACCINE, MRNA-1273, LNP-S (MODERNA)/PF 10/12/2020 1 2:00:00 AM EDT completed [facility] COVID-19 VACCINE, MRNA-1273, LNP-S (MODERNA)/PF 09/08/2020 1 2:00:00 AM EST completed Kasey Viveros Shingrix Zoster Vaccine (HZV), Recombinant, Subunit, A djuvanted 05/19/2020 01:55:00 PM EST completed [facility] This CVX code allows reporting of a vacc ination when formulation is unknown (for example, when recording a Influenza vaccination when noted on a vaccination card) 05/02/2020 11:03:00 AM EDT completed MAURO T ([facility]) Medications Medication Brand Name Start Date [...] MOUTH EVERY DAY AT BEDTIME SOLD: 07/29/2020 [facility] 50 mg 04/25/2020 12:00:00 AM [...] Covered democrat ID Covered democrat's relationship to deleon Policy Deleon Plan Information Medicare Natl Govt Servic Medicare Primary [id number] Self [id number] Medicare Natl Govt Servic Medicare Primary [id number] [id number] Self [id number] Medicare Natl Govt Servic Medicare Primary [id number] Self [id number] Medicare Natl Govt Servic Medicare Primary [id number] Self [id number] Medicare Natl Govt Servic Medicare Primary [id number] Self [id number] MEDICARE [id number] SP [id number] D Medicare Natl Govt Servic Medicare Primary [id number] Self [id number] Medicare Natl Govt Servic Medicare Primary [id number] Self [id number] Medicare Natl Govt Servic Medicare Primary [id number] Self [id number] Medicare Natl Govt Servic Medicare Primary [id number] Self [id number] Medicare Natl Govt Servic Medicare Primary [id number] Self [id number] Medicare Natl Govt Servic Medicare Primary [id number] Self [id number] Medicare Natl Govt Servic Medicare Primary [id number] Self [id number] Medicare Natl Govt Servic Medicare Primary [id number] Self [id number] Medicare Natl Govt Servic Medicare Primary [id number] Self [id number] D WPS For Life Medigap Part B [id number] Family Depende nt WPS For Life Medigap Part B [id number] Family Dependent [id number] WPS For Life Medigap Part B [id number] Family Dependent [id number] WPS For Life Medigap Part B [id number] Family Dependent [id number] For Life WPS Medigap Part B [id number] Family Dependent [id number] Medicare Natl Gov't Servi Medicare Primary [id number] Self [id number] WPS For Life Medigap Part B [id number] Family Dependent [id number] WPS For Life Medigap Part B [id number] Family Dependent [id number] WPS For Life Medigap Part B [id number] Family Dependent [id number] WPS For Life Medigap Part B [id number] Family Dependent [id number] FOR LIFE [id number] SP 11 [id number] WPS For Life Medigap Part B [id number] Family Dependent [id number] WPS For Life Medigap Part B [id number] Family Dependent [id number] WPS For Life Medigap Part B [id number] Family Dependent [id number] WPS For Life Medigap Part B [id number] Family Dependent [id number] WPS For Life Medigap Part B [id number] Family Dependent [id number] WPS For Life Medigap Part B [id number] Family Dependent [id number] Problems, Conditions, and Diagnoses No Information Surgeries/Procedures Procedure Description Date Indications Data Source(s) OFFICE OUTPATIENT VISIT 25 MINUTES 10/18/2020 12:00:00 AM EDT [facility] ([facility]) Results ID Date Data Source [id number] 02/14/2021 11:19:00 AM EDT [facility] ([facility]) Name Value Range Interpretation Code Description Data Corina rce(s) Supporting Document(s) Glucose [Mass/volume] in Serum or Plasma 122 mg/dL 74-99 [facility] ([facility]) 100-125 mg/dL PRE-DIABETES/FASTING >126 mg/dL DIABETES/FASTING Urea nitrogen [Mass/volume] in Serum or Plasma 33 mg/dL 7-18 [facility] ([facility]) Creatinine 1.8 mg/dL 0.6-1.3 [facility] Sodium [Moles/volume] in Serum or Plasma 139 meq/L 136-145 [facility] ([facility]) Potassium [Moles/volume] in Serum or Plasma 5.2 meq/L 3.5-5.1 [facility] ([facility]) NOTE: RESULT VERIFIED. NO VISIBLE HEMOLYSIS. Chloride [Moles/volume] in Serum or Plasma 102 meq/L 98-107 [facility] ([facility]) Carbon dioxide, total [Moles/volume] in Serum or Plasma 27 meq/L 21 -32 [facility] ([facility]) Calcium [Mass/volume] in Serum or Plasma 10.1 mg/dL 8.5-10.1 [facility] Glomerular filtration rate/1.73 sq M pre dicted among non-blacks [Volume Rate/Area] in Serum or Plasma by Creatinine-based formula (MDRD) 27 mL/min [facility] Glomerular filtration rate/1.73 sq M pre dicted among blacks [Volume Rate/Area] in Serum or Plasma by Creatinine-based formula (MDRD) 32 mL/min [facility] <content>CHRONIC KIDNEY DISEASE STAGING PER NKF</content>
<content></content>
<content>STAGE I & II GFR >= 60 NORMAL TO MILDLY DECREASED</content>
<content>STAGE III GFR 30-59 MODERATELY DECREASED</content>
<content>STAGE IV GFR 15-29 SEVERELY DECREASED</content>
<content>STAGE V GFR <15 VERY LITTLE GFR LEFT</content>
<content>ESRD GFR <15 ON END WORKER</content>
<content></content> ID Date Data Source [id number] 02/14/2021 11:19:00 AM EDT [facility] ([facility]) Name Value Range Interpretation Code Description Data Corina rce(s) Supporting Document(s) Magnesium 2.0 mg/dL 1.8-2.4 [facility]) ID Date Data Source [id number] 02/14/2021 11:19:00 AM EDT [facility] ([facility]) Name Value Range Interpretation Code Description Data Corina rce(s) Supporting Document(s) Hemoglobin A1c/Hemoglobin.total in Blood 7.5 % [facility] ([facility]) Lab Result Notes: Pre-Diabetes 5.7 - 6.4 % Diabetes = or > 6.5% Glucose mean value [Mass/volume] in Blood Estimated fr om glycated hemoglobin 169 mg/dL 60-110 [facility] ID Date Data Source [id number] 02/14/2021 11:19:00 AM EDT [facility] Name Value Range Interpretation Code Description Data Corina rce(s) Supporting Document(s) Leukocytes [#/volume] in Blood by Automated count 10.4 x10*3/UL 4.1-1 0.9 [facility] NOTE: CBC VERIFEID Hemoglobin [Mass/volume] in Blood 11.8 g/dL 12.0-18.0 [facility] Erythrocytes [#/volume] in Blood by Automated count 4.09 x10*6/UL 4.2 0-6.30 [facility] Hematocrit [Volume Fraction] of Blood by Automated count 34.8 % 3 7.0-51.0 [facility] ([facility]) MCV 84.9 fL 80.0-97.0 [facility] ([facility] MCH 28.8 pg 26.0-32.0 [facility] ([facility]) Platelets [#/volume] in Blood by Automated count 369 x10*3/UL 140-440 [facility] MCHC 33.9 g/dL 31.0-38.0 [facility] ([facility]) Erythrocyte distribution width [Ratio] by Automated count 13.6 % 11.6-13.7 [facility] ([facility]) MPV 8.4 FL 7.8-11.0 [facility] ([facility] Lymph % 17.1 % 10.0-58.5 [facility] ([facility] Neut % 77.8 % 37.0-92.0 [facility] ([facility] Lymph # 1.7 x10*3/UL 0.6-4.1 [facility] ([facility]) Mid % 5.1 % 1.7-9.3 [facility] Neut # 8.1 x10*3/UL 2.0-7.8 [facility] ([facility]) Mid # 0.6 x10*3/UL 0.1-0.6 [facility] ([facility]) ID Date Data Source [id number] 02/14/2021 11:19:00 AM EDT [facility] ([facility]) Name Value Range Interpretation Code Description Data Corina rce(s) Supporting Document(s) Hemoglobin A1c/Hemoglobin.total in Blood Laboratory test result [facility] ([facility]) Magnesium, Serum Laboratory test result [facility] ([facility]) ID Date Data Source [id number] 10/18/2020 11:03:00 AM EDT [facility] ([facility]) Name Value Range Interpretation Code Description Data Corina rce(s) Supporting Document(s) Glucose [Mass/volume] in Serum or Plasma 120 mg/dL 74-99 [facility] ([facility]) 100-125 mg/dL PRE-DIABETES/FASTING >126 mg/dL DIABETES/FASTING Creatinine 1.7 mg/dL 0.6-1.3 [facility] Urea nitrogen [Mass/volume] in Serum or Plasma 28 mg/dL 7-18 [facility] ([facility]) Chloride [Moles/volume] in Serum or Plasma 102 meq/L 98-107 [facility] ([facility]) Potassium [Moles/volume] in Serum or Plasma 4.8 meq/L 3.5-5.1 [facility] ([facility]) Sodium [Moles/volume] in Serum or Plasma 139 meq/L 136-145 [facility] ([facility]) Carbon dioxide, total [Moles/volume] in Serum or Plasma 26 meq/L 21 -32 [facility] ([facility]) Calcium [Mass/volume] in Serum or Plasma 9.3 mg/dL 8.5-10.1 [facility] ([facility]) Glomerular filtration rate/1.73 sq M pre dicted among non-blacks [Volume Rate/Area] in Serum or Plasma by Creatinine-based formula (MDRD) 28 mL/min [facility] ([facility]) Glomerular filtration rate/1.73 sq M pre dicted among blacks [Volume Rate/Area] in Serum or Plasma by Creatinine-based formula (MDRD) 34 mL/min [facility] <content>CHRONIC KIDNEY DISEASE STAGING PER NKF</content>
<content></content>
<content>STAGE I & II GFR >= 60 NORMAL TO MILDLY DECREASED</content>
<content>STAGE III GFR 30-59 MODERATELY DECREASED</content>
<content>STAGE IV GFR 15-29 SEVERELY DECREASED</content>
<content>STAGE V GFR <15 VERY LITTLE GFR LEFT</content>
<content>ESRD GFR <15 ON END WORKER</content>
<content></content> ID Date Data Source [id number] 10/18/2020 11:03:00 AM EDT [facility] ([facility]) Name Value Range Interpretation Code Description Data Corina rce(s) Supporting Document(s) Magnesium 1.8 mg/dL 1.8-2.4 [facility] ID Date Data Source [id number] 10/18/2020 11:03:00 AM EDT [facility] ([facility]) Name Value Range Interpretation Code Description Data Corina rce(s) Supporting Document(s) Glucose mean value [Mass/volume] in Blood Estimated fr om glycated hemoglobin 171 mg/dL 60-110 [facility] ([facility] ) Hemoglobin A1c/Hemoglobin.total in Blood 7.6 % [facility] Lab Result Notes: Pre-Diabetes 5.7 - 6.4 % Diabetes = or > 6.5% ID Date Data Source [id number] 10/18/2020 11:03:00 AM EDT [facility] ([facility]) Name Value Range Interpretation Code Description Data Corina rce(s) Supporting Document(s) Leukocytes [#/volume] in Blood by Automated count 11.9 x10*3/UL 4.1-1 0.9 [facility] ([facility]) NOTE: CBC VERIFIED Erythrocytes [#/volume] in Blood by Automated count 3.97 x10*6/UL 4.2 0-6.30 [facility] ([facility]) Hemoglobin [Mass/volume] in Blood 11.5 g/dL 12.0-18.0 [facility] Hematocrit [Volume Fraction] of Blood by Automated count 33.7 % 3 7.0-51.0 [facility] ([facility]) MCV 84.9 fL 80.0-97.0 [facility] ([facility] MCH 29.0 pg 26.0-32.0 [facility] ([facility]) MCHC 34.1 g/dL 31.0-38.0 [facility] ([facility]) Erythrocyte distribution width [Ratio] by Automated count 13.1 % 11.6-13.7 [facility] Platelets [#/volume] in Blood by Automated count 335 x10*3/UL 140-440 [facility] MPV 8.5 FL 7.8-11.0 [facility] ([facility] Mid % 3.6 % 1.7-9.3 [facility] ([facility] Lymph % 14.1 % 10.0-58.5 [facility] ([facility]) Neut % 82.3 % 37.0-92.0 [facility] ([facility]) Lymph # 1.6 x10*3/UL 0.6-4.1 [facility] ([facility]) Mid # 0.5 x10*3/UL 0.1-0.6 [facility] ([facility]) Neut # 9.8 x10*3/UL 2.0-7.8 [facility] ([facility]) ID Date Data Source [id number] 05/20/2020 12:00:00 PM EST [facility] ([facility]) Name Value Range Interpretation Code Description Data Corina rce(s) Supporting Document(s) Urine Creatinine 124.1 mg/dL 30.0-125.0 [facility] ([facility]) Microalbumin Urine 188.1 mg/L 1.3-20.0 [facility] ([facility]) NOTE: DILUTED AND VERIFIED Microalb/Creat Ratio 151.6 ug/mg 0.0-30.0 [facility] ([facility]) ID Date Data Source [id number] 05/20/2020 12:00:00 PM EST [facility] ([facility]) Name Value Range Interpretation Code Description Data Corina rce(s) Supporting Document(s) Urine Color Laboratory test result [facility] Urine Appearance Laboratory test result Abnormal (applies to non-numeric results) [facility] Urine PH 8.0 units 5.0-9.0 [facility] Specific gravity of Urine 1.010 1.005-1.030 [facility] Urine Blood Laboratory test result Abnormal (applies to non-numeric results) [facility] ([facility]) Urine Leukocytes Laboratory test result Abnormal (applies to non-numeric results) [facility] ([facility]) Urine Protein Laboratory test result 0-0 Abnormal (applies to non-numeric results) [facility] Glucose [Presence] in Urine Laboratory test result [facility] ([facility]) Urine Nitrite Laboratory test result Abnormal (applies to non-numeric results) [facility] ([facility]) Urine Ketone Laboratory test result [facility] Bilirubin.total [Mass/volume] in Serum or Plasma Laboratory test resu lt [facility] ([facility]) Urine Urobilinogen 0.2 mg/dL 0.2-1.0 [facility]) ID Date Data Source [id number] 05/19/2020 10:27:00 AM EST [facility]) Name Value Range Interpretation Code Description Data Corina rce(s) Supporting Document(s) Hemoglobin A1c/Hemoglobin.total in Blood 7.1 % [facility] Lab Result Notes: Pre-Diabetes 5.7 - 6.4 % Diabetes = or > 6.5% Glucose mean value [Mass/volume] in Blood Estimated fr om glycated hemoglobin 157 mg/dL 60-110 [facility] ([facility] ) ID Date Data Source [id number] 05/19/2020 10:26:00 AM EST [facility] ([facility]) Name Value Range Interpretation Code Description Data Corina rce(s) Supporting Document(s) Thyrotropin [Units/volume] in Serum or Plasma by Detec tion limit <= 0.05 mIU/L 3.14 uIU/mL 0.36-3.74 [facility] ([facility] ) ID Date Data Source [id number] 05/19/2020 10:26:00 AM EST [facility] ([facility]) Name Value Range Interpretation Code Description Data Corina rce(s) Supporting Document(s) Cholesterol [Mass/volume] in Serum or Plasma 166 mg/dL 131-200 [facility] ([facility]) Cholesterol in HDL [Mass/volume] in Serum or Plasma 56 mg/dL 35-60 [facility] ([facility]) Triglyceride [Mass/volume] in Serum or Plasma 124 mg/dL 30-150 [facility] ([facility]) Cholesterol in LDL [Mass/volume] in Serum or Plasma by calcu lation 85 CALC 50-159 [facility] ([facility]) ID Date Data Source [id number] 05/19/2020 10:26:00 AM EST [facility] ([facility]) Name Value Range Interpretation Code Description Data Corina rce(s) Supporting Document(s) Glucose [Mass/volume] in Serum or Plasma 134 mg/dL 74-99 [facility] ([facility]) 100-125 mg/dL PRE-DIABETES/FASTING >126 mg/dL DIABETES/FASTING Urea nitrogen [Mass/volume] in Serum or Plasma 23 mg/dL 7-18 [facility] ([facility]) Creatinine 1.6 mg/dL 0.6-1.3 [facility] Sodium [Moles/volume] in Serum or Plasma 138 meq/L 136-145 [facility] ([facility]) Potassium [Moles/volume] in Serum or Plasma 5.0 meq/L 3.5-5.1 [facility] ([facility]) Chloride [Moles/volume] in Serum or Plasma 102 meq/L 98-107 [facility] ([facility]) Calcium [Mass/volume] in Serum or Plasma 9.3 mg/dL 8.5-10.1 [facility] ([facility]) Carbon dioxide, total [Moles/volume] in Serum or Plasma 28 meq/L 21 -32 [facility] ([facility]) Total Bilirubin 0.6 mg/dL 0.2-1.0 [facility] ([facility]) Alkaline phosphatase isoenzyme [Units/volume] in Serum or Pl asma 100 mg/dL 46-116 [facility] ([facility]) Alanine aminotransferase [Enzymatic activity/volume] in Seru m or Plasma 16 U/L 12-78 [facility] ([facility]) Aspartate aminotransferase [Enzymatic activity/volume] in Serum or Plasma 15 U/L 15-37 [facility] ([facility] ) Albumin [Mass/volume] in Serum or Plasma 3.5 g/dL 3.4-5.0 [facility] ([facility]) Proteinase 3 Ab [Units/volume] in Serum 7.6 g/dL 6.4-8.2 [facility] ([facility]) A/G Ratio 0.85 CALC 1.00-1.90 [facility] Glomerular filtration rate/1.73 sq M pre dicted among blacks [Volume Rate/Area] in Serum or Plasma by Creatinine-based formula (MDRD) 37 mL/min [facility] ([facility]) <content>CHRONIC KIDNEY DISEASE STAGING PER NKF</content>
<content></content>
<content>STAGE I & II GFR >= 60 NORMAL TO MILDLY DECREASED</content>
<content>STAGE III GFR 30-59 MODERATELY DECREASED</content>
<content>STAGE IV GFR 15-29 SEVERELY DECREASED</content>
<content>STAGE V GFR <15 VERY LITTLE GFR LEFT</content>
<content>ESRD GFR <15 ON END WORKER</content>
<content></content> Glomerular filtration rate/1.73 sq M pre dicted among non-blacks [Volume Rate/Area] in Serum or Plasma by Creatinine-based formula (MDRD) 31 mL/min [facility] ([facility]) ID Date Data Source [id number] 05/19/2020 10:26:00 AM EST [facility] ([facility]) Name Value Range Interpretation Code Description Data Corina rce(s) Supporting Document(s) Creatine kinase [Enzymatic activity/volume] in Serum or Plasma 82 U /L 26-192 [facility] ([facility]) Magnesium 1.7 mg/dL 1.8-2.4 [facility] ID Date Data Source [id number] 05/19/2020 10:26:00 AM EST [facility] ([facility]) Name Value Range Interpretation Code Description Data Corina rce(s) Supporting Document(s) Leukocytes [#/volume] in Blood by Automated count 10.6 x10*3/UL 4.1-1 0.9 [facility] ([facility]) Hemoglobin [Mass/volume] in Blood 11.7 g/dL 12.0-18.0 [facility] ([facility]) NOTE: RESULT VERIFIED. Erythrocytes [#/volume] in Blood by Automated count 3.98 x10*6/UL 4.2 0-6.30 [facility] ([facility]) Hematocrit [Volume Fraction] of Blood by Automated count 34.5 % 3 7.0-51.0 [facility] ([facility]) MCV 86.7 fL 80.0-97.0 [facility] MCH 29.6 pg 26.0-32.0 [facility] MCHC 34.1 g/dL 31.0-38.0 [facility] Erythrocyte distribution width [Ratio] by Automated count 13.7 % 11.6-13.7 [facility] ([facility]) Platelets [#/volume] in Blood by Automated count 353 x10*3/UL 140-440 [facility] ([facility]) Mid % 4.2 % 1.7-9.3 [facility] Lymph % 14.1 % 10.0-58.5 [facility] MPV 8.4 FL 7.8-11.0 [facility] Neut % 81.7 % 37.0-92.0 [facility] Lymph # 1.5 x10*3/UL 0.6-4.1 [facility] [facility] Neut # 8.7 x10*3/UL 2.0-7.8 [facility] ([facility]) Mid # 0.4 x10*3/UL 0.1-0.6 [facility] ([facility]) Procedure Social History No Information Vital Signs ID Date Data Source UNK Name Value Range Interpretation Code Description Data Source(s) Body height 62.75 [in_i] 62.75 [in_i] [facility] ([facility]) 5'2.75" Systolic blood pressure 140 mm[Hg] 140 mm[Hg] M [facility] ([facility]) RT Arm Diastolic blood pressure 60 mm[Hg] 60 mm[Hg] [facility] ([facility]) RT Arm Heart rate 80 /min 80 /min [facility] ([facility]) Body mass index (BMI) [Ratio] 32.9 kg/m2 32.9 k g/m2 [facility] ([facility]) Body weight 184.12 [lb_av] 184.12 [lb_av] MEDEN T ([facility]) Systolic blood pressure 138 mm[Hg] 138 mm[Hg] M [facility] ([facility]) RT Arm Body weight 180.25 [lb_av] 180.25 [lb_av] MEDEN T ([facility]) Body mass index (BMI) [Ratio] 32.2 kg/m2 32.2 k g/m2 [facility] ([facility]) Diastolic blood pressure 60 mm[Hg] 60 mm[Hg] [facility] ([facility]) RT Arm Heart rate 88 /min 88 /min [facility] ([facility]) Body height 62.75 [in_i] 62.75 [in_i] [facility] ([facility]) 5'2.75" Systolic blood pressure 122 mm[Hg] 122 mm[Hg] M [facility] ([facility]) Body weight 177.38 [lb_av] 177.38 [lb_av] MEDEN T ([facility]) Oxygen saturation in Arterial blood by Pulse oximetry 95 % 95 % LISA ([facility]) RM Air Diastolic blood pressure 60 mm[Hg] 60 mm[Hg] L[facility] ([facility]) Heart rate 75 /min 75 /min [facility] ([facility]) Body height 62.75 [in_i] 62.75 [in_i] [facility] ([facility]) 5'2.75" Body mass index (BMI) [Ratio] 31.7 kg/m2 31.7 k g/m2 [facility] ([facility])
--- NOTE | 2021-05-15 19:28 | HPEPDOC ---
[facility] Medical History & Physical Date of Admission May 15, 2021 Date of Service: May 15, 2021 Attending Physician: ZACKERY KNOX MD History and Physical CHIEF COMPLAINT: Abdominal discomfort, gassy burping HISTORY OF PRESENT ILLNESS: 85 yo W with a history of DM (a1c 7.5% in 02/2021), CKD 3 with baseline Cr 1.8, HTN, HLD, obesity, KALEY, asthma, who lives alone in her apartment and has services from the [employer] for [employer] and some private help daily, and ambulates with a cane but has a walker as well, who presented to the ED for persistent gassiness and abodminal discomfort with some episodes of non-bloody emesis at home for a few days without any relief from over the counter gas-X. She denies galo abdominal pain, diarrhea, significant history of constipation, bloody emesis, melena or hematochezia. She also denies any fever, chills, chest pain, palpitations, dizziness, congestion. She is vaccinated against covid-19. In the ED, she was hemodynamically stable AXR showed bowel gas pattern c/w an SBO and a follow up CT A/P showed an SBO proximal to the mid ileum with evidence of perforation, free air, pneumatosis, ascites, abscess or masses. There was a supraumbilical ventral hernia with fat and no bowel herniation. WBC was 15.1, hgb 13.1, platelets 403, na 133, K 4.5, Cr 1.81 at her baseline, mag 2.5, lactate wnl and troponin <0.02. General surgery was consulted and on evaluation by Dr. Mendieta she declined surgical management and opted for conservative medical management. Dr. Mendieta recommended admission to medicine, NGT placement for decompression, IVF and NPO status. On my evaluation, she appeared comfortably though abdomen was visibly distended, declined any experience of pain and expressed her desire to be DNR/DNI. PAST MEDICAL HISTORY: history of DM (a1c 7.5% in 02/2021) CKD 3 with baseline Cr 1.8 HTN HLD obesity KALEY asthma BAKARI PAST SURGICAL HISTORY: appendectomy SOCIAL HISTORY: Marital status: Resides in: [place], in an [facility], by herself, has aides daily for a few hours Children: 1 son who lives in [place] Tobacco use:none ETOH: None Illicit drug use: None FAMILY HISTORY: Reviewed. Non contributory ALLERGIES: Please see below. REVIEW OF SYSTEMS: As noted in the HPI. The rest of the 10 point ROS was otherwise negative. HOME MEDICATIONS: Please see below. PHYSICAL EXAMINATION: VITAL SIGNS: see below GENERAL APPEARANCE: NAD, conversational, AOx3 HEENT: EOMI, dry MM CARDIOVASCULAR: RRR, no m/r/g LUNGS: CTAB ABDOMEN: distended, tympanic, hyperactive bowel sounds, nontender on deep palpation EXTREMITIES: WWP, no edema NEUROLOGICAL: CN 3-12 intact, 5/5 strength throughout, nonfocal examination, speech is clear PSYCHIATRIC: AOx3 LABORATORY DATA and IMAGING: Discussed above, see below for full details MICROBIOLOGY: Please see below. ASSESSMENT: 85 yo W with a history of DM (a1c 7.5% in 02/2021), CKD 3 with baseline Cr 1.8, HTN, HLD, obesity, KALEY, asthma, who presented to the ED for persistent gassiness and abdominal discomfort and now being admitted for medical management of an SBO after declining surgical intervention. PLAN: SBO: -NGT has been placed for decompression -NS at 125cc/hr -NPO -zofran PRN -Daily CBC, BMP -Surgery consulted HTN: -holding ARB and BB. If she develops severe HTN will have to treat with IV meds HLD: -hold statin until she is tolerating PO Asthma: -substitute home mdi with mauricio GERD: -PPI IV daily CKD3: stable, at baseline -monitor daily BMP DM, recent a1c of 7.5% -SSI Q6H -hypoglycemia protocol -FSBG Q6H -NPO DVT ppx: heparin BID Dispo: inpatient, PT/OT for safe discharge planning Vital Signs Vital Signs Date Time Temp Pulse Resp B/P (MAP) Pulse Ox O2 Delivery O2 Flow Rate FiO2 05/15/21 17:30 83 162/73 (102) 94 05/15/21 16:30 98.8 18 Room Air Laboratory Data Labs 24H Laboratory Tests 2 05/15/21 12:01: Immature Granulocyte % (Auto) 0.6, Neutrophils (%) (Auto) 88.9H, Lymphocytes (%) (Auto) 4.4L, Monocytes (%) (Auto) 5.8, Eosinophils (%) (Auto) 0.0, Basophils (%) (Auto) 0.3, Neutrophils # (Auto) 13.4H, Lymphocytes # (Auto) 0.7L, Monocytes # (Auto) 0.9H, Eosinophils # (Auto) 0.0, Basophils # (Auto) 0.0, Nucleated Red Blood Cells % (auto) 0.0, Anion Gap 8, Glomerular Filtration Rate 28.2L, Calcium Level 10.0, Magnesium Level 2.5H, Total Creatine Kinase 126, Creatine Kinase MB 1.5, Creatine Kinase MB Relative Index 1.19, Troponin I < 0.02 05/15/21 13:45: Coronavirus (COVID-19)(PCR) NEGATIVE, Influenza Type A (RT-PCR) NEGATIVE, Influenza Type B (RT-PCR) NEGATIVE, Respiratory Syncytial Virus (PCR) NEGATIVE CBC/BMP Laboratory Tests 05/15/21 12:01 Home Medications Scheduled Losartan Potassium (Losartan Potassium) 50 Mg Tablet, 50 MG PO DAILY Magnesium (Magnesium) 250 Mg Tablet, 250 MG PO DAILY Metoprolol Succinate (Metoprolol Succinate) 50 Mg Tab.er.24h, 50 MG PO QHS Omeprazole (Omeprazole) 20 Mg Capsule.dr, 20 MG PO DAILY Simvastatin (Simvastatin) 20 Mg Tablet, 20 MG PO QHS Scheduled PRN Fluticasone Propion/Salmeterol (Fluticasone-Salmeterol 250-50) 1 Each Blst.w.dev, 1 PUFF INH BID PRN for SHORTNESS OF BREATH Allergies Coded Allergies: Sulfa (Sulfonamide Antibiotics) (Verified Adverse Reaction, Unknown, "go crazy", 05/15/21) A-FIB/CHADSVASC A-FIB History Current/History of A-Fib/PAF?: No Current PO Anticoag Therapy: No Age/Risk Factor Scoring CHADSVASC: CHADSVASC Response (Comments) Value Age Risk Factor Age >/= 75 years old 2 Gender Risk Factor Female 1 Hx of CHF No 0 Hx of HTN Yes 1 Hx of Stroke/TIA/or VTE No 0 Hx of Diabetes Yes 1 Hx of Vascular Disease No 0 Total 5 Treatment Treatment ordered: NONE Reason Anticoagulant not given: Not indicated/[id number] ZACKERY KNOX MD May 15, 2021 19:28
[2021-05-15 20:59] VITALS: BP 147/64
[2021-05-15] MEDS ORDERED: D5W/0.45% SODIUM CHLORIDE 1,000 ML IV SCH (21:40)
[2021-05-15] MEDS: PANTOPRAZOLE 40MG VIAL (C9113 PER 1) IV SCH (22:05)
[2021-05-15] MEDS: HEPARIN SOD (PORCINE) 5000UNITS/ML 1ML VIAL/SYRINGE SC SCH (22:06)
[2021-05-15] MEDS: ADVAIR HFA 115/21MCG INHALER INH SCH (22:06)
[2021-05-15] MEDS: HumaLOG INSULIN (NovoLOG) PER UNIT SC SCH (23:48)
[2021-05-16] MEDS: HumaLOG INSULIN (NovoLOG) PER UNIT SC SCH ×4 (05:44→23:47)
[2021-05-16 06:00] VITALS: BP 146/72
[2021-05-16 06:24] LABS: HEMATOCRIT 34.9 % (36.0-47.0); HEMOGLOBIN 11.2 g/dl (12.0-15.5); MEAN CORPUSCULAR HEMOGLOBIN 28.6 pg (27.0-33.0); MEAN CORPUSCULAR HGB CONC 32.1 g/dl (32.0-36.5); MEAN CORPUSCULAR VOLUME 89.3 fl (80.0-96.0); PLATELET COUNT, AUTOMATED 311 10^3/uL (150-450); RED BLOOD COUNT 3.91 10^6/uL (4.00-5.40); WHITE BLOOD COUNT 14.1 10^3/uL (4.0-10.0)
[2021-05-16 06:41] LABS: CALCIUM LEVEL 9.1 MG/DL (8.8-10.2); CREATININE FOR GFR 1.75 MG/DL (0.55-1.30); GLOMERULAR FILTRATION RATE 29.3 (>32); MAGNESIUM LEVEL 1.9 MG/DL (1.8-2.4); POTASSIUM SERUM 3.6 MEQ/L (3.5-5.1)
[2021-05-16] MEDS: ADVAIR HFA 115/21MCG INHALER INH SCH ×2 (07:47→19:46)
--- NOTE | 2021-05-16 08:06 | ECGEPIP ---
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
--- NOTE | 2021-05-16 08:46 | IPNPDOC ---
Text Note Date of Service The patient was seen on 05/16/21. NOTE General surgery. Dr. Mendieta The patient is an 85-year-old female admitted for SBO. This morning, the patient is out of bed to the chair, denies abdominal pain currently. NG tube in place. Reports small amount of flatus. Temperature 98, heart rate 88, respiratory rate 19, blood pressure 146/72, 93% room air. Awake and alert, sitting in the chair. Appears comfortable in no acute distress. NG tube in place Lungs clear to auscultation S1-S2 regular rate rhythm Abdomen is soft, distended, nontender with palpation, no guarding or rebound, no grimacing. WBC 14.1, compared with 15.1 yesterday. Lactic acid this morning 1.1 Assessment/plan SBO The patient is reviewed and examined as per Dr. Mendieta this morning Plan to continue with medical management NPO NGT LIS IVF as per hospitalist Continue out of bed and encourage ambulation as much as possible. Continue to monitor. VS,Chrisbone, I+O VS, Fishbone, I+O Laboratory Tests 05/15/21 12:01 05/16/21 06:04 Vital Signs Date Time Temp Pulse Resp B/P (MAP) Pulse Ox O2 Delivery O2 Flow Rate FiO2 05/16/21 06:00 98.0 88 19 146/72 (96) 93 Room Air I&O- Last 24 Hours up to 6 AM 05/16/21 06:00 Intake Total 2225 ml Output Total 1050 ml Balance 1175 ml Keren Choudhury May 16, 2021 08:46
[2021-05-16] MEDS: NS 1,000 ML IV SCH ×2 (09:12→18:29)
[2021-05-16] MEDS: HEPARIN SOD (PORCINE) 5000UNITS/ML 1ML VIAL/SYRINGE SC SCH ×2 (09:13→20:44)
--- NOTE | 2021-05-16 09:22 | CR ---
CONSULTATION DATE: 05/15/2021 REASON FOR CONSULTATION: Small bowel obstruction. HISTORY OF PRESENT ILLNESS: The patient is an 85-year-old female who lives alone who presented to the Emergency Room with some crampy abdominal pains and abdominal distention. She did have a little bit of nausea and vomiting in the home and claims that her last bowel movement was a couple of days ago. She denies having any other problems like this in the past. She has had a prior surgery for a perforated appendix as a child and also a hernia repair completed. No other surgeries. No recent changes in diet or medications. No fevers or chills. No blood in her stool or changes in bowel movements recently. PAST MEDICAL HISTORY: Diabetes, chronic kidney disease, hypertension, hyperlipidemia, obesity, asthma. PAST SURGICAL HISTORY: Appendectomy and ventral hernia repair. SOCIAL HISTORY: Denies drug, alcohol, or tobacco abuse. FAMILY HISTORY: Noncontributory. ALLERGIES: Sulfa. HOME MEDICATIONS: Please see med rec. REVIEW OF SYSTEMS: Pertinent positives and negatives as stated in the HPI. PHYSICAL EXAMINATION: Alert and oriented x3, in no acute distress. Vitals: Temperature is 97.6, pulse is 78, respirations are 16, blood pressure is 144/69, pulse oximetry is 94% on room air. HEENT: Pupils equally round and reactive to light and accommodation. Heart: S1 and S2, regular rate and rhythm. Lungs are clear to auscultation bilaterally. Abdomen is soft and distended diffusely, nontender. No rebound or guarding. Extremities: No cyanosis, clubbing or edema. LABORATORY DATA: White count 14.1, hemoglobin 11.2, platelets 311,000. Potassium 4.5, creatinine 1.81. IMAGING: CT of the abdomen and pelvis showed small bowel obstructive pattern with mid small bowel probably in the proximal to mid ileum overlying the level of the upper sacrum, stool and gas in the right colon with a completely collapsed left colon. No signs of perforation, free air, ascites or abscess. No pneumatosis. There is also a midline supraumbilical ventral hernia showing only omental fat, no bowel herniation within it. ASSESSMENT AND PLAN: The patient is an 85-year-old female currently with mid to distal small bowel obstruction likely secondary to adhesions from prior surgery. The recommendation at this time is to proceed with medical management, IV fluid, antibiotics, NPO and NG-tube with low intermittent suction. I discussed the findings with the patient, explained to her that normally we give this about 72 hours as long as she is stable. If there is no improvement then we will discuss surgical options after that point. At this point, she is extremely adamant that she does not want any surgery whatsoever no matter what the timeline is. I told her that is fine, we are not going to discuss it right now. I told her we will give her 72 hours and she does not have to have surgery but I am going to at least discuss it with her. She understands and is agreeable to proceeding with the medical management as outlined above. All of her questions were answered.
[2021-05-16] MEDS ORDERED: MORPHINE 2 MG/ML 1ML VIAL (J2270) IV PRN ×2 (13:25)
[2021-05-16 14:00] VITALS: BP 132/62
[2021-05-16] MEDS ORDERED: ACETAMINOPHEN 650 MG SUPP PR PRN (15:15)
[2021-05-16 17:37] LABS: INR 1.19; PARTIAL THROMBOPLASTIN TIME 30.1 SECONDS (25.9-37.0); PROTHROMBIN TIME 15.6 SECONDS (12.7-14.5)
--- NOTE | 2021-05-16 20:40 | IPNPDOC ---
Date Seen The patient was seen on 05/16/21. Progress Note SUBJECTIVE: Borderline fever 100.1, tylenol added. Infectious w/u ordered. Surgery following. She denies abd pain, nausea, vomiting. one bowel movement overnight. OBJECTIVE: PHYSICAL EXAMINATION: VITAL SIGNS: see below GENERAL APPEARANCE: NAD, conversational, AOx3 HEENT: EOMI, dry MM, NG tube in place CARDIOVASCULAR: RRR, no m/r/g LUNGS: CTAB ABDOMEN: distended, tympanic, hyperactive bowel sounds, nontender on deep palpation EXTREMITIES: WWP, no edema NEUROLOGICAL: CN 3-12 intact, 5/5 strength throughout, nonfocal examination, speech is clear PSYCHIATRIC: AOx3 LABORATORY DATA and IMAGING: Discussed above, see below for full details MICROBIOLOGY: F/u blood cultures, UA ordered ASSESSMENT: 85 yo W with a history of DM (a1c 7.5% in 02/2021), CKD 3 with baseline Cr 1.8, HTN, HLD, obesity, KALEY, asthma, who presented to the ED for persistent gassiness and abdominal discomfort and now being admitted for medical management of an SBO after declining surgical intervention. PLAN: SBO: -One small bowel movement, passing gas -C/w NGT with IS, NS at 125cc/hr, NPO, zofran PRN -Daily CBC, BMP -Surgery following HTN: -holding ARB and BB. HLD: -hold statin until she is tolerating PO Asthma: -substitute home mdi with mauricio GERD: -PPI IV daily DEMAR on CKD3: -Cr slightly improved -monitor daily BMP, avoid nephrotoxic meds DM, recent a1c of 7.5% -SSI Q6H -hypoglycemia protocol -FSBG Q6H -NPO DVT ppx: heparin BID Dispo: inpatient, PT/OT for safe discharge planning. VS, I&O, 24H, Fishbone Vital Signs/I&O Vital Signs Date Time Temp Pulse Resp B/P (MAP) Pulse Ox O2 Delivery O2 Flow Rate FiO2 05/16/21 17:56 99.3 05/16/21 14:27 20 05/16/21 14:00 93 132/62 (85) 94 Room Air I&O- Last 24 Hours up to 6 AM 05/16/21 06:00 Intake Total 2225 ml Output Total 1050 ml Balance 1175 ml Laboratory Data 24H LABS Laboratory Tests 2 05/15/21 21:19: Bedside Glucose (Misc Panel) 134H 05/15/21 23:44: Bedside Glucose (Misc Panel) 150H 05/16/21 05:35: Bedside Glucose (Misc Panel) 144H 05/16/21 06:04: Nucleated Red Blood Cells % (auto) 0.0, Anion Gap 7L, Glomerular Filtration Rate 29.3L, Lactic Acid Level 1.1, Calcium Level 9.1, Magnesium Level 1.9 05/16/21 11:57: Bedside Glucose (Misc Panel) 150H 05/16/21 17:05: Prothrombin Time 15.6H, Prothromb Time International Ratio 1.19, Activated Partial Thromboplast Time 30.1 05/16/21 18:04: Bedside Glucose (Misc Panel) 112H CBC/BMP Laboratory Tests 05/16/21 06:04 Microbiology Microbiology 05/16/21 Blood Culture, Received Pending 05/16/21 Blood Culture, Received Pending Ana Rubio MD May 16, 2021 20:40
[2021-05-16] MEDS: PANTOPRAZOLE 40MG VIAL (C9113 PER 1) IV SCH (20:44)
[2021-05-16 22:00] VITALS: BP 133/58
[2021-05-17] MEDS: NS 1,000 ML IV SCH ×3 (03:21→23:43)
[2021-05-17 04:00] VITALS: BP 151/72
[2021-05-17] MEDS: HumaLOG INSULIN (NovoLOG) PER UNIT SC SCH ×4 (05:39→23:47)
[2021-05-17 06:34] LABS: HEMATOCRIT 36.9 % (36.0-47.0); HEMOGLOBIN 11.6 g/dl (12.0-15.5); MEAN CORPUSCULAR HEMOGLOBIN 28.9 pg (27.0-33.0); MEAN CORPUSCULAR HGB CONC 31.4 g/dl (32.0-36.5); MEAN CORPUSCULAR VOLUME 91.8 fl (80.0-96.0); PLATELET COUNT, AUTOMATED 291 10^3/uL (150-450); RED BLOOD COUNT 4.02 10^6/uL (4.00-5.40); WHITE BLOOD COUNT 14.2 10^3/uL (4.0-10.0)
[2021-05-17 06:51] LABS: CALCIUM LEVEL 8.9 MG/DL (8.8-10.2); CREATININE FOR GFR 1.66 MG/DL (0.55-1.30); GLOMERULAR FILTRATION RATE 31.1 (>32); MAGNESIUM LEVEL 2.1 MG/DL (1.8-2.4); POTASSIUM SERUM 3.9 MEQ/L (3.5-5.1)
[2021-05-17] MEDS: ADVAIR HFA 115/21MCG INHALER INH SCH ×2 (08:00→19:57)
[2021-05-17 08:20] VITALS: BP 142/60
--- NOTE | 2021-05-17 08:22 | IPNPDOC ---
Text Note Date of Service The patient was seen on 05/17/21. NOTE General surgery. Dr. Mendieta The patient is an 85-year-old female admitted for SBO. This morning, the patient is out of bed to the chair. NG tube in place but there is no output documented yesterday or today so far. Reports small bowel movement yesterday. Afebrile, VSS. Awake and alert, sitting in the chair. Appears comfortable in no acute distress. NG tube in place Abdomen is somewhat softer across the lower abdomen but still distended/firm across the upper abdomen, nontender with palpation, no guarding or rebound, no grimacing. WBC 14.2, compared with 14.1 Assessment/plan SBO The patient is reviewed and examined as per Dr. Mendieta this morning Plan to continue with medical management for now, the patient has declined surgical intervention. Continue NPO Continue NGT LIS Requested abdominal x-ray this morning to further evaluate IVF as per hospitalist Continue out of bed and encourage ambulation as much as possible. The patient states she was not able to ambulate very much yesterday related to knee pain. Continue to monitor, further recommendations pending review of imaging as per Dr. Mendieta. VS,Fishbone, I+O VS, Fishbone, I+O Laboratory Tests 05/17/21 06:00 Vital Signs Date Time Temp Pulse Resp B/P (MAP) Pulse Ox O2 Delivery O2 Flow Rate FiO2 05/17/21 04:00 98.9 81 18 151/72 (98) 96 Room Air I&O- Last 24 Hours up to 6 AM 05/17/21 05:59 Intake Total 2375 ml Output Total 700 ml Balance 1675 ml Keren Choudhury May 17, 2021 08:22
[2021-05-17] MEDS ORDERED: MORPHINE 2 MG/ML 1ML VIAL (J2270) IV PRN (10:25)
[2021-05-17] MEDS: HEPARIN SOD (PORCINE) 5000UNITS/ML 1ML VIAL/SYRINGE SC SCH ×2 (11:25→20:58)
--- NOTE | 2021-05-17 13:52 | REP ---
INDICATION: abd distention. COMPARISON: 05/15/2021 01 p.m. TECHNIQUE: AP and cross-table lateral views FINDINGS: Once again, there are multiple dilated small bowel loops. Cross-table lateral view shows no evidence of free intraperitoneal air. There is no significant change in appearance of the intestinal gas pattern. A nasogastric tube is been placed since the last exam. The distal aspect is coiled within the stomach. IMPRESSION: Persistent small bowel pattern as described above. Other findings as described above. <Electronically signed by Karri Castaneda > 05/17/21 1736
[2021-05-17 14:15] VITALS: BP 143/61
--- NOTE | 2021-05-17 16:51 | IPNPDOC ---
Date Seen The patient was seen on 05/17/21. Progress Note SUBJECTIVE: Persistent small bowel pattern seen on abdominal x-ray today. Only 2 very small bowel movements this morning, admits to passing gas. She denies chest pain, increased abdominal pain, nausea, vomiting, shortness of breath. OBJECTIVE: PHYSICAL EXAMINATION: VITAL SIGNS: see below GENERAL APPEARANCE: NAD, conversational, AOx3 HEENT: EOMI, dry MM, NG tube in place CARDIOVASCULAR: RRR, no m/r/g LUNGS: CTAB ABDOMEN: distended, tympanic, hyperactive bowel sounds, nontender on deep p alpation EXTREMITIES: WWP, no edema NEUROLOGICAL: CN 3-12 intact, 5/5 strength throughout, nonfocal examination, speech is clear PSYCHIATRIC: AOx3 LABORATORY DATA and IMAGING: Discussed above, see below for full details MICROBIOLOGY: blood cultures-- NG UA ordered ASSESSMENT: 85 yo W with a history of DM (a1c 7.5% in 02/2021), CKD 3 with baseline Cr 1.8, HTN, HLD, obesity, KALEY, asthma, who presented to the ED for persistent gassiness and abdominal discomfort and now being admitted for medical management of an SBO after declining surgical intervention. PLAN: SBO: -2 very small bowel movements today, continues to pass gas -Abdominal x-ray shows persistent SBO -C/w NGT with IS, NS at 100cc/hr, NPO, zofran PRN -Daily CBC, BMP -Surgery following, patient has declined surgical intervention at this time HTN: -holding ARB and BB. HLD: -hold statin until she is tolerating PO Asthma: -substitute home mdi with mauricio GERD: -PPI IV daily DEMAR on CKD3: -Cr slightly improved -monitor daily BMP, avoid nephrotoxic meds DM, recent a1c of 7.5% -SSI Q6H -hypoglycemia protocol -FSBG Q6H -NPO DVT ppx: heparin BID Dispo: inpatient, PT/OT for safe discharge planning. VS, I&O, 24H, Fishbone Vital Signs/I&O Vital Signs Date Time Temp Pulse Resp B/P (MAP) Pulse Ox O2 Delivery O2 Flow Rate FiO2 05/17/21 14:15 100.1 100 20 143/61 (88) 93 05/17/21 08:20 Room Air I&O- Last 24 Hours up to 6 AM 05/17/21 06:00 Intake Total 1925 ml Output Total 700 ml Balance 1225 ml Laboratory Data 24H LABS Laboratory Tests 2 05/16/21 17:05: Prothrombin Time 15.6H, Prothromb Time International Ratio 1.19, Activated Partial Thromboplast Time 30.1 05/16/21 18:04: Bedside Glucose (Misc Panel) 112H 05/16/21 23:36: Bedside Glucose (Misc Panel) 123H 05/17/21 05:36: Bedside Glucose (Misc Panel) 101 05/17/21 06:00: Nucleated Red Blood Cells % (auto) 0.0, Anion Gap 7L, Glomerular Filtration Rate 31.1L, Calcium Level 8.9, Magnesium Level 2.1 05/17/21 11:40: Bedside Glucose (Misc Panel) 136H CBC/BMP Laboratory Tests 05/17/21 06:00 Microbiology Microbiology 05/16/21 Blood Culture, Received Pending 05/16/21 Blood Culture, Received Pending Ana Rubio MD May 17, 2021 16:51
[2021-05-17] MEDS: PANTOPRAZOLE 40MG VIAL (C9113 PER 1) IV SCH (20:58)
[2021-05-17 22:00] VITALS: BP 145/59
[2021-05-18] MEDS: MORPHINE 2 MG/ML 1ML VIAL (J2270) IV PRN (04:43)
[2021-05-18] MEDS: HumaLOG INSULIN (NovoLOG) PER UNIT SC SCH ×2 (05:42→12:00)
[2021-05-18 06:00] VITALS: BP 43/59
[2021-05-18 06:46] LABS: HEMATOCRIT 32.4 % (36.0-47.0); MEAN CORPUSCULAR HEMOGLOBIN 28.2 pg (27.0-33.0); MEAN CORPUSCULAR HGB CONC 30.9 g/dl (32.0-36.5); MEAN CORPUSCULAR VOLUME 91.3 fl (80.0-96.0); PLATELET COUNT, AUTOMATED 249 10^3/uL (150-450); RED BLOOD COUNT 3.55 10^6/uL (4.00-5.40); WHITE BLOOD COUNT 13.4 10^3/uL (4.0-10.0)
[2021-05-18 07:06] LABS: CALCIUM LEVEL 8.6 MG/DL (8.8-10.2); CREATININE FOR GFR 1.35 MG/DL (0.55-1.30); GLOMERULAR FILTRATION RATE 39.5 (>32); POTASSIUM SERUM 3.8 MEQ/L (3.5-5.1)
[2021-05-18] MEDS: ADVAIR HFA 115/21MCG INHALER INH SCH ×2 (07:20→19:35)
[2021-05-18] MEDS ORDERED: MAGNESIUM CITRATE 300 ML BTL PO ONE (08:00)
[2021-05-18 08:26] VITALS: BP 168/70
[2021-05-18 09:00] VITALS: BP 168/70
--- NOTE | 2021-05-18 09:16 | IPNPDOC ---
Text Note Date of Service The patient was seen on 05/18/21. NOTE General surgery. Dr. Mendieta The patient is an 85-year-old female admitted for SBO. This morning, the patient is out of bed to the chair. States she had a large bowel movement last evening at 530, 2 other smaller bowel movements. Denies abdominal pain. States passing a small amount of flatus NG tube in place and has clear drainage noted this morning. 98.4 this morning, T-max 100.1 Heart rate 89, respiratory rate 20, blood pressure 168/70, 96% room air Awake and alert, sitting in the chair. Appears comfortable in no acute distress. NG tube in place Abdomen is still distended but nontender, no guarding or rebound, no grimacing. WBC 13.4,14.2 yesterday. NG output yesterday 550 mL. Assessment/plan SBO The patient is reviewed and examined as per Dr. Mendieta this morning Plan to continue with medical management for now, the patient has declined surgical intervention. The patient reports she had a large bowel movement last evening, 4 bowel movements documented yesterday. Plan to clamp NG tube this morning, sips. Magnesium citrate today IVF as per hospitalist Continue out of bed and encourage ambulation as much as possible. Continue to monitor. VS,Fishbone, I+O VS, Fishbone, I+O Laboratory Tests 05/18/21 06:26 Vital Signs Date Time Temp Pulse Resp B/P (MAP) Pulse Ox O2 Delivery O2 Flow Rate FiO2 05/18/21 08:26 89 20 168/70 96 Room Air 05/18/21 06:00 98.4 I&O- Last 24 Hours up to 6 AM 05/18/21 05:59 Intake Total 2940 ml Output Total 2205 ml Balance 735 ml Keren Choudhury May 18, 2021 09:16
[2021-05-18] MEDS: HEPARIN SOD (PORCINE) 5000UNITS/ML 1ML VIAL/SYRINGE SC SCH ×2 (09:23→20:24)
[2021-05-18] MEDS: METOCLOPRAMIDE INJ 10MG/2ML VIAL (J2765 PER 1) IV SCH ×3 (09:24→17:29)
[2021-05-18] MEDS: NS 1,000 ML IV SCH (10:14)
[2021-05-18 14:00] VITALS: BP 142/62
[2021-05-18 14:42] VITALS: BP 162/68
--- NOTE | 2021-05-18 17:04 | IPNPDOC ---
Date Seen The patient was seen on 05/18/21. Progress Note SUBJECTIVE: Multiple bowel movements overnight. NG tube clamped today by surgery, mag citrate given, still NPO except ice chips. Passing gas. She denies chest pain, increased abdominal pain, nausea, vomiting, shortness of breath. OBJECTIVE: PHYSICAL EXAMINATION: VITAL SIGNS: see below GENERAL APPEARANCE: NAD, conversational, AOx3 HEENT: EOMI, dry MM, NG tube in place CARDIOVASCULAR: RRR, no m/r/g LUNGS: CTAB, no w/r/r ABDOMEN: distended abdomen, tympanic, bowel sounds +, nontender EXTREMITIES: WWP, no edema NEUROLOGICAL: CN 3-12 intact, no focal deficits PSYCHIATRIC: mood and affect appropriate LABORATORY DATA and IMAGING: Discussed above, see below for full details MICROBIOLOGY: blood cultures-- NG ASSESSMENT: 85 yo W with a history of DM (a1c 7.5% in 02/2021), CKD 3 with baseline Cr 1.8, HTN, HLD, obesity, KALEY, asthma, who presented to the ED for persistent gassiness and abdominal discomfort and now being admitted for medical management of an SBO after declining surgical intervention. PLAN: SBO: -Multiple bowel movements over 24H, continues to pass gas -NG tube clamped by surgery today, given mag citrate -Abd remains distended -C/w NS at 100cc/hr, NPO, zofran PRN -Daily CBC, BMP -Surgery following, patient has declined surgical intervention at this time Hypoglycemia likely 2/2 to NPO status -Lower BS this AM -Hx of DM type II, HbA1c 7.5% -D/c ISS coverage Q6H -C/w FS Q6H, hypoglycemic protocol -NPO except for ice chips currently. -IF goes hypoglycemic while still NPO, consider D5NS IVFs DEMAR on CKD3: -Cr slightly improved -monitor daily BMP, avoid nephrotoxic meds HTN: -holding ARB and BB -Likely higher due to not getting meds and fluids HLD: -hold statin until she is tolerating PO Asthma: -substitute home mdi with mauricio GERD: -PPI IV daily DVT ppx: heparin BID Dispo: inpatient, PT/OT for safe discharge planning. VS, I&O, 24H, Fishbone Vital Signs/I&O Vital Signs Date Time Temp Pulse Resp B/P (MAP) Pulse Ox O2 Delivery O2 Flow Rate FiO2 11/4/21 14:42 99.5 96 20 162/68 (99) 94 Room Air I&O- Last 24 Hours up to 6 AM 05/18/21 06:00 Intake Total 2940 ml Output Total 1905 ml Balance 1035 ml Laboratory Data 24H LABS Laboratory Tests 2 05/17/21 17:48: Bedside Glucose (Misc Panel) 95 05/17/21 23:45: Bedside Glucose (Misc Panel) 97 05/18/21 05:36: Bedside Glucose (Misc Panel) 79L 05/18/21 06:26: Nucleated Red Blood Cells % (auto) 0.0, Anion Gap 8, Glomerular Filtration Rate 39.5, Calcium Level 8.6L, Magnesium Level 2.0 05/18/21 11:57: Bedside Glucose (Misc Panel) 92 CBC/BMP Laboratory Tests 05/18/21 06:26 Microbiology Microbiology 05/16/21 Blood Culture - Preliminary, Resulted No growth after 24 hours . All specim... 05/16/21 Blood Culture - Preliminary, Resulted No growth after 24 hours . All specim... Ana Rubio MD May 18, 2021 17:04
[2021-05-18] MEDS: PANTOPRAZOLE 40MG VIAL (C9113 PER 1) IV SCH (20:23)
[2021-05-18 22:00] VITALS: BP 159/81
[2021-05-19] MEDS: METOCLOPRAMIDE INJ 10MG/2ML VIAL (J2765 PER 1) IV SCH ×4 (03:12→17:41)
[2021-05-19] MEDS: NS 1,000 ML IV SCH ×3 (03:12→22:29)
[2021-05-19 05:36] LABS: HEMATOCRIT 35.6 % (36.0-47.0); MEAN CORPUSCULAR HEMOGLOBIN 28.4 pg (27.0-33.0); MEAN CORPUSCULAR HGB CONC 30.9 g/dl (32.0-36.5); PLATELET COUNT, AUTOMATED 300 10^3/uL (150-450); RED BLOOD COUNT 3.87 10^6/uL (4.00-5.40); WHITE BLOOD COUNT 17.6 10^3/uL (4.0-10.0)
[2021-05-19 05:54] LABS: CALCIUM LEVEL 9.4 MG/DL (8.8-10.2); CREATININE FOR GFR 1.38 MG/DL (0.55-1.30); GLOMERULAR FILTRATION RATE 38.5 (>32); MAGNESIUM LEVEL 2.3 MG/DL (1.8-2.4); POTASSIUM SERUM 3.4 MEQ/L (3.5-5.1)
[2021-05-19 06:00] VITALS: BP 169/76
[2021-05-19] MEDS: ADVAIR HFA 115/21MCG INHALER INH SCH ×2 (07:13→19:31)
[2021-05-19] MEDS: HEPARIN SOD (PORCINE) 5000UNITS/ML 1ML VIAL/SYRINGE SC SCH ×2 (08:47→20:04)
[2021-05-19] MEDS ORDERED: E-Z-PAQUE 96% w/w SUSP 176GM BTL As Ordered ONE (08:47)
--- NOTE | 2021-05-19 09:00 | IPNPDOC ---
Text Note Date of Service The patient was seen on 05/19/21. NOTE General surgery. Dr. Mendieta The patient is an 85-year-old female admitted for SBO. The patient is out of bed to the chair. She tolerated magnesium citrate yesterday and had several bowel movements. Tolerating sips, denies nausea or vomiting. NG tube has been clamped since yesterday morning. Temperature 98.1, heart rate 101, respiratory rate 20, blood pressure 169/76, 9 2% room air Awake and alert, sitting in the chair. Appears comfortable in no acute distress. NG tube in place Abdomen is distended but nontender, no guarding or rebound, no grimacing. The patient seemed more distended today, during exam the patient's NG tube was hooked back to suction as per Dr. Mendieta but there was no significant amount of drainage. WBC 17.6 compared with 13.4 yesterday. NG tube clamped Assessment/plan SBO The patient is reviewed and examined as per Dr. Mendieta this morning Plan to continue with medical management for now, the patient has previously declined surgical intervention and continues to reiterate this morning that she will not consider any surgical intervention. NG tube remains clamped. Has tolerated sips of clear liquids IVF as per hospitalist Plan for small bowel follow-through this morning to further assess, further recommendations pending review of imaging as per Dr. Mendieta. Continue out of bed and encourage ambulation as much as possible. Continue to monitor. VS,Fishbone, I+O VS, Fishbone, I+O Laboratory Tests 05/19/21 05:06 Vital Signs Date Time Temp Pulse Resp B/P (MAP) Pulse Ox O2 Delivery O2 Flow Rate FiO2 05/19/21 06:00 98.1 101 20 169/76 (107) 92 Room Air I&O- Last 24 Hours up to 6 AM 05/19/21 05:59 Intake Total 1360 ml Output Total 250 ml Balance 1110 ml Keren Choudhury May 19, 2021 09:00
[2021-05-19 14:00] VITALS: BP 160/78
--- NOTE | 2021-05-19 17:17 | REP ---
INDICATION: abd distention. COMPARISON: CT abdomen pelvis dated 05/15/2021 TECHNIQUE: This procedure was performed by DANE Clement, under the direct supervision of Dr. Mcdowell. Images were reviewed with Dr. Mcdowell prior to dictation. Liquid barium was administered and the barium column was followed through the small bowel to the level of the terminal ileum. FINDINGS: The information technology security manager film shows multiple distended small bowel loops. There is no significant change in the appearance of the intestinal gas pattern from previous exams. A nasogastric tube is seen with its tip coiled in the stomach. Appearing reaches the proximal to mid small bowel on delayed images. Intestinal bowel gas pattern and barium pattern consistent with small-bowel obstruction. IMPRESSION: Intestinal bowel gas pattern and barium pattern consistent with small-bowel obstruction. Further follow-up KUB imaging may be obtained to assess barium transit. <Electronically signed by Navya Choe > 05/19/21 1705 <Electronically signed by Romeo Mcdowell > 05/19/21 [id number]
--- NOTE | 2021-05-19 17:29 | IPNPDOC ---
Date Seen The patient was seen on 05/19/21. Progress Note SUBJECTIVE: Multiple bowel movements but still distended. Small bowel follow through today, showed persistent SBO. F/u KUB to be done. She denies chest pain, increased abdominal pain, nausea, vomiting, shortness of breath. OBJECTIVE: PHYSICAL EXAMINATION: VITAL SIGNS: see below GENERAL APPEARANCE: NAD, conversational, AOx3 HEENT: EOMI, dry MM, NG tube in place CARDIOVASCULAR: RRR, no m/r/g LUNGS: CTAB, no w/r/r ABDOMEN: distended abdomen, tympanic, bowel sounds +, nontender EXTREMITIES: WWP, no edema NEUROLOGICAL: CN 3-12 intact, no focal deficits PSYCHIATRIC: mood and affect appropriate LABORATORY DATA and IMAGING: Discussed above, see below for full details MICROBIOLOGY: blood cultures-- NG ASSESSMENT: 85 yo W with a history of DM (a1c 7.5% in 02/2021), CKD 3 with basel ine Cr 1.8, HTN, HLD, obesity, KALEY, asthma, who presented to the ED for persistent gassiness and abdominal discomfort and now being admitted for medical management of an SBO after declining surgical intervention. PLAN: SBO: -Multiple bowel movements over 24H, continues to pass gas -NG tube clamped by surgery, tolerating ice chips -Small bowel follow through shows persistent SBO, follow up KUB to be done tonight -Abd remains distended -C/w NS at 100cc/hr, NPO, zofran PRN -Daily CBC, BMP -Surgery following, patient has declined surgical intervention at this time Hypoglycemia likely 2/2 to NPO status- resolved -Hx of DM type II, HbA1c 7.5% -D/c ISS coverage Q6H -C/w FS Q6H, hypoglycemic protocol -NPO except for ice chips currently. -IF goes hypoglycemic while still NPO, consider D5NS IVFs DEMAR on CKD3: -Cr slightly worsened -monitor daily BMP, avoid nephrotoxic meds HTN: -holding ARB and BB -Likely higher due to not getting meds and fluids HLD: -hold statin until she is tolerating PO Asthma: -substitute home mdi with mauricio GERD: -PPI IV daily DVT ppx: heparin BID Dispo: inpatient, PT/OT for safe discharge planning. VS, I&O, 24H, Fishbone Vital Signs/I&O Vital Signs Date Time Temp Pulse Resp B/P (MAP) Pulse Ox O2 Delivery O2 Flow Rate FiO2 05/19/21 14:00 98.2 104 18 160/78 (105) 95 Room Air I&O- Last 24 Hours up to 6 AM 05/19/21 06:00 Intake Total 2650 ml Output Total 250 ml Balance 2400 ml Laboratory Data 24H LABS Laboratory Tests 2 05/19/21 03:12: Bedside Glucose (Misc Panel) 96 05/19/21 05:06: Nucleated Red Blood Cells % (auto) 0.0, Anion Gap 12, Glomerular Filtration Rate 38.5, Calcium Level 9.4, Magnesium Level 2.3 05/19/21 12:03: Bedside Glucose (Misc Panel) 146H 05/19/21 16:40: Bedside Glucose (Misc Panel) 114H CBC/BMP Laboratory Tests 05/19/21 05:06 Microbiology Microbiology 05/16/21 Blood Culture - Preliminary, Resulted No Growth after 72 hours. All specime... 05/16/21 Blood Culture - Preliminary, Resulted No Growth after 72 hours. All specime... Ana Rubio MD May 19, 2021 17:29
[2021-05-19] MEDS: PANTOPRAZOLE 40MG VIAL (C9113 PER 1) IV SCH (20:04)
[2021-05-19 22:00] VITALS: BP 159/74
[2021-05-20] MEDS: METOCLOPRAMIDE INJ 10MG/2ML VIAL (J2765 PER 1) IV SCH ×4 (00:50→17:32)
[2021-05-20 06:00] VITALS: BP 163/79
[2021-05-20 06:08] LABS: HEMATOCRIT 32.5 % (36.0-47.0); HEMOGLOBIN 10.2 g/dl (12.0-15.5); MEAN CORPUSCULAR HEMOGLOBIN 28.3 pg (27.0-33.0); MEAN CORPUSCULAR HGB CONC 31.4 g/dl (32.0-36.5); PLATELET COUNT, AUTOMATED 297 10^3/uL (150-450); RED BLOOD COUNT 3.61 10^6/uL (4.00-5.40)
[2021-05-20 06:25] LABS: CALCIUM LEVEL 9.1 MG/DL (8.8-10.2); CREATININE FOR GFR 1.08 MG/DL (0.55-1.30); GLOMERULAR FILTRATION RATE 51.1 (>32); MAGNESIUM LEVEL 2.2 MG/DL (1.8-2.4); POTASSIUM SERUM 3.8 MEQ/L (3.5-5.1)
[2021-05-20] MEDS: ADVAIR HFA 115/21MCG INHALER INH SCH ×2 (07:56→19:42)
[2021-05-20] MEDS: HEPARIN SOD (PORCINE) 5000UNITS/ML 1ML VIAL/SYRINGE SC SCH ×2 (09:01→21:50)
[2021-05-20] MEDS: NS 1,000 ML IV SCH ×3 (09:01→21:40)
--- NOTE | 2021-05-20 09:19 | REP ---
INDICATION: dropping O2, r/o PNA. COMPARISON: 10/18/2010. TECHNIQUE: PA and lateral FINDINGS: There is a nasogastric tube coursing through the mediastinum curving back onto itself in the fundus of the stomach in the left upper quadrant. Lungs are somewhat hypoinflated. There is some basilar fibrotic and atelectatic change bilaterally right greater than left. This is enhanced compared to the study from 10 years ago suggesting some superimposed patchy atelectasis or infiltrate. There is patchy perihilar atelectasis or infiltrate right greater than left. Small effusions suggested. No gross cardiomegaly. Some venous hypertension seen with vascular redistribution and engorgement of upper lobe veins. The aorta is mildly tortuous calcified, without aneurysm. Bones show degenerative changes in the shoulders and spine. There is a barium seen in the transverse colon and splenic flexure from yesterday's small bowel series. IMPRESSION: 1. A nasogastric tube coursing through the mediastinum in curved back on itself in the fundus of the stomach in the left upper quadrant. 2. Lungs hypoinflated today with by basilar fibro atelectatic change and some patchy perihilar atelectasis or infiltrates noted. 3. There is venous hypertension with engorgement of upper lobe veins and small effusions. No gross cardiomegaly. 4. Barium in the transverse colon and splenic flexure from yesterday's small bowel series. No dilated loops. <Electronically signed by Chin Yadav > 05/20/21 0918
[2021-05-20 10:20] LABS: TROPONIN I 0.03 NG/ML (< 0.10)
[2021-05-20] MEDS ORDERED: FUROSEMIDE 20MG/2ML VIAL (J1940) IV ONE (12:30)
--- NOTE | 2021-05-20 12:42 | IPNPDOC ---
Text Note Date of Service The patient was seen on 05/20/21. NOTE Patient seen sitting up on the chair. She had her nasogastric tube clamped for more than 48 hours now which she has tolerated. She denies any nausea, vomiting bloating, abdominal pain. She has had loose bowel movements from the laxatives however given that her. She wishes to have the nasogastric tube pulled out. Examination Moderately obese lady, does not look to be in any distress. Looks fairly comfortable. She has a nasogastric tube in place. I placed the nasogastric tube to suction and we did not get any drainage from the nasogastric tube. Her abdomen is moderately obese, round. She has a lower midline incision. No obvious herniation from the incisions. She still is moderately distended, hypoactive bowel sounds, tympanic to percussion. She is nontender on palpation throughout. Impression and plan Small bowel obstruction from adhesions versus ileus given possibility of pneumonia, congestive heart failure Despite being moderately distended she has tolerated the nasogastric tube being clamped for more than 48 hours and I barely got anything when I placed this to regular suction. Thus I have elected to remove the nasogastric tube. I will serially follow her with x-rays and clinical examination and keep her just on liquids for now while she is getting optimized with regards to her multiple comorbidities. She is getting treated for pneumonia as well as being treated for congestive heart failure. She does not wish for surgery. She had small bowel follow-through that was done yesterday. There was no distinct transition point but there was delay in passage of contrast material. If her distention worsens then we may need to put the nasogastric tube back and will be more evident to her that she needs surgery. For the meantime continue to optimize her for still a potential surgery depending on her course. VS,Fishbone, I+O VS, Fishbone, I+O Laboratory Tests 05/20/21 05:41 Vital Signs Date Time Temp Pulse Resp B/P (MAP) Pulse Ox O2 Delivery O2 Flow Rate FiO2 05/20/21 06:00 98.8 115 18 163/79 (107) 90 Room Air I&O- Last 24 Hours up to 6 AM 05/20/21 06:00 Intake Total 1880 ml Output Total 225 ml Balance 1655 ml RIKKI HOLLIS MD May 20, 2021 12:42
[2021-05-20] MEDS ORDERED: cefTRIAXone SOD 1 GM in D5W MINI-BAG PLUS 50 ML IV SCH (13:00)
[2021-05-20 14:00] VITALS: BP 160/72
--- NOTE | 2021-05-20 17:02 | IPNPDOC ---
Date Seen The patient was seen on 05/20/21. Progress Note SUBJECTIVE: Patient remains distended but she tolerated NG tube being clamped, it was removed early in the morning. UA positive for UTI, started on ceftriaxone. She denies chest pain, increased abdominal pain, nausea, vomiting, shortness of breath. OBJECTIVE: PHYSICAL EXAMINATION: VITAL SIGNS: see below GENERAL APPEARANCE: NAD, conversational, AOx3 HEENT: EOMI, dry MM CARDIOVASCULAR: RRR, no m/r/g LUNGS: CTAB, no w/r/r ABDOMEN: distended abdomen, tympanic, bowel sounds +, nontender EXTREMITIES: WWP, no edema NEUROLOGICAL: CN 3-12 intact, no focal deficits PSYCHIATRIC: mood and affect appropriate LABORATORY DATA and IMAGING: Discussed above, see below for full details CXR 05/20/21: 1. A nasogastric tube coursing through the mediastinum in curved back on itself in the fundus of the stomach in the left upper quadrant. 2. Lungs hypoinflated today with by basilar fibro atelectatic change and some patchy perihilar atelectasis or infiltrates noted. 3. There is venous hypertension with engorgement of upper lobe veins and small effusions. No gross cardiomegaly. 4. Barium in the transverse colon and splenic flexure from yesterday's small bowel series. No dilated loops. MICROBIOLOGY: blood cultures-- NG ASSESSMENT: 85 yo W with a history of DM (a1c 7.5% in 02/2021), CKD 3 with baseline Cr 1.8, HTN, HLD, obesity, KALEY, asthma, who presented to the ED for persistent gassiness and abdominal discomfort and now being admitted for medical management of an SBO after declining surgical intervention. PLAN: SBO: -NG tube removed by surgery, tolerating ice chips -Small bowel follow: There was no distinct transition point but there was delay in passage of contrast material. -Abd remains distended -C/w NS at 80cc/hr, NPO, zofran PRN, regular imaging -Daily CBC, BMP -Surgery following, patient has declined surgical intervention previously. If her distention worsens then we may need to put the nasogastric tube back and will be more evident to her that she needs surgery. For the meantime continue to optimize her for a potential surgery depending on her course. Decreasing O2 -tachycardia, waxing and waning O2 saturation -CXR: basilar fibro atelectatic change and some patchy perihilar atelectasis or infiltrates noted -Procalcitonin neg so not starting abx for PNA -Workup and treatment of HF below -Decreasing fluids to 80 cc/hr, monitor for s/s of overload -IS Q2 hrs CHF, type unknown -BNP >4000, + b/l lower ext swelling, CXR above, dropping O2 saturations -No prior hx of HF -Cr only normal today, previously DEMAR -Given 20 mg IV lasix today, f/u Cr in the AM and if ok then can give another dose. -Unfortunately cannot completely stop IVFs due to SBO, no intake but these gentle fluids do not make up for what her daily intake should be -F/u echocardiogram UTI -+UA, f/u blood cultures, UCx -WBC decreased to 14K -Ceftriaxone -Daily CBC Hypoglycemia likely 2/2 to NPO status -BS 78 this AM, not symptomatic -Hx of DM type II, HbA1c 7.5% -D/c ISS coverage Q6H -C/w FS Q6H, hypoglycemic protocol -NPO except for ice chips currently. -IF goes hypoglycemic while still NPO, consider D5NS IVFs DEMAR on CKD3-resolved -Cr now wnl -With lasix being given intermittently, follow labs closely -monitor daily BMP, avoid nephrotoxic meds Deconditioned state, unsteadiness on feet -PT: Pt continues to exhibit safety and mobility far below her baseline and will most likely require continue rehab prior to returning home. -Lives alone HTN: -holding ARB and BB -Likely higher due to not getting meds and fluids HLD: -hold statin, NPO Asthma: -substitute home mdi with mauricio GERD: -PPI IV daily DVT ppx: heparin BID Dispo: Inpatient, PT/OT for safe discharge planning and anticipating rehab. VS, I&O, 24H, Fishbone Vital Signs/I&O Vital Signs Date Time Temp Pulse Resp B/P (MAP) Pulse Ox O2 Delivery O2 Flow Rate FiO2 05/20/21 14:00 97.9 91 17 160/72 (101) 94 Room Air I&O- Last 24 Hours up to 6 AM 05/20/21 06:00 Intake Total 1880 ml Output Total 225 ml Balance 1655 ml Laboratory Data 24H LABS Laboratory Tests 2 05/20/21 00:46: Bedside Glucose (Misc Panel) 96 05/20/21 05:41: Nucleated Red Blood Cells % (auto) 0.0, Anion Gap 10, Glomerular Filtration Rate 51.1, Calcium Level 9.1, Magnesium Level 2.2 05/20/21 07:14: Bedside Glucose (Misc Panel) 78L 05/20/21 09:29: Lactic Acid Level 1.0, Troponin I 0.03, OF-Odl-Q-Type Natriuretic Peptide 4219H 05/20/21 11:17: Urine Color YELLOW, Urine Appearance CLOUDYH, Urine pH 5.0, Urine Specific [place] 1.012, Urine Protein 1+H, Urine Glucose (UA) NEGATIVE, Urine Ketones 1+H, Urine Blood 2+H, Urine Nitrite POSITIVEH, Urine Bilirubin NEGATIVE, Urine Urobilinogen 0.2, Urine Leukocyte Esterase 2+H, Urine WBC (Auto) 93H, Urine RBC (Auto) 14H, Urine Hyaline Casts (Auto) 0, Urine Bacteria (Auto) 2+H, Urine Squamous Epithelial Cells 1, Urine Mucus (Auto) SMALL, Urine Sperm (Auto) 05/20/21 12:06: Procalcitonin 0.15 05/20/21 12:19: Bedside Glucose (Misc Panel) 91 CBC/BMP Laboratory Tests 05/20/21 05:41 Microbiology Microbiology 05/20/21 Urine Culture, Received Pending 05/16/21 Blood Culture - Preliminary, Resulted No Growth after 72 hours. All specime... 05/16/21 Blood Culture - Preliminary, Resulted No Growth after 72 hours. All specime... Ana Rubio MD May 20, 2021 17:02
[2021-05-20] MEDS: PANTOPRAZOLE 40MG VIAL (C9113 PER 1) IV SCH (21:50)
[2021-05-20 22:00] VITALS: BP 138/62
[2021-05-21] MEDS: METOCLOPRAMIDE INJ 10MG/2ML VIAL (J2765 PER 1) IV SCH ×5 (00:23→23:25)
[2021-05-21] MEDS: MORPHINE 2 MG/ML 1ML VIAL (J2270) IV PRN ×2 (01:44→21:52)
[2021-05-21 06:00] VITALS: BP 146/62
[2021-05-21 06:49] LABS: HEMATOCRIT 30.8 % (36.0-47.0); HEMOGLOBIN 9.9 g/dl (12.0-15.5); MEAN CORPUSCULAR HEMOGLOBIN 28.6 pg (27.0-33.0); MEAN CORPUSCULAR HGB CONC 32.1 g/dl (32.0-36.5); PLATELET COUNT, AUTOMATED 303 10^3/uL (150-450); RED BLOOD COUNT 3.46 10^6/uL (4.00-5.40)
[2021-05-21 07:21] LABS: ALBUMIN 2.1 GM/DL (3.2-5.2); BILIRUBIN,TOTAL 0.5 MG/DL (0.2-1.0); CALCIUM LEVEL 8.7 MG/DL (8.8-10.2); CREATININE FOR GFR 1.06 MG/DL (0.55-1.30); GLOMERULAR FILTRATION RATE 52.2 (>32); POTASSIUM SERUM 2.8 MEQ/L (3.5-5.1); TOTAL PROTEIN 6.6 GM/DL (6.4-8.2)
[2021-05-21] MEDS: ADVAIR HFA 115/21MCG INHALER INH SCH ×2 (07:36→19:27)
[2021-05-21] MEDS ORDERED: FUROSEMIDE 40MG/4ML VIAL (J1940) IV ONE (08:30)
--- NOTE | 2021-05-21 08:33 | REP ---
INDICATION: ffup sbo. COMPARISON: Small-bowel follow-through 05/19/2021 TECHNIQUE: Supine abdomen two views. FINDINGS: All of the barium is now in the colon. It is scattered throughout and has reached the rectum. A significant amount of the barium has passed but is still seen scattered from the cecum to the rectum. Diverticulosis of the left colon and sigmoid noted. No dilated small bowel loops are noted on these images. IMPRESSION: 1. Barium has passed from the small bowel and is seen scattered throughout the colon from the cecum to rectum. No abnormal dilated loops of bowel in the abdomen or pelvis. There is scattered diverticulosis from the mid left colon through sigmoid. <Electronically signed by Chin Yadav > 05/21/21 [id number]
[2021-05-21] MEDS: KCL 10MEQ/100ML SWI (KRUN) 10 MEQ in IV 1 EA IV SCH ×5 (08:48→15:07)
[2021-05-21] MEDS: HEPARIN SOD (PORCINE) 5000UNITS/ML 1ML VIAL/SYRINGE SC SCH ×2 (08:48→20:06)
--- NOTE | 2021-05-21 09:31 | IPNPDOC ---
Text Note Date of Service The patient was seen on 05/21/21. NOTE Patient reports no abdominal discomfort. She has had a few bowel movements w hich are loose after her small bowel follow-through was done. She tolerated removal of the nasogastric tube. She is tolerating clear liquids. She is denying any nausea Vital signs stable Examination She is seen seated on the chair, looks comfortable Abdomen is a lot less distended today than it was yesterday, soft, nontender on palpation X-ray that was done today shows contrast going through to the colon with decreased distention of the small bowel Impression and plan Small bowel obstruction resolving with decreased distention n exam, contrast seen going through the colon on follow up xray full liquids today, advance as tolerated VS,Fishbone, I+O VS, Fishbone, I+O Laboratory Tests 05/21/21 05:54 Vital Signs Date Time Temp Pulse Resp B/P (MAP) Pulse Ox O2 Delivery O2 Flow Rate FiO2 05/21/21 06:00 98.8 88 18 146/62 (90) 93 Room Air I&O- Last 24 Hours up to 6 AM 05/21/21 06:00 Intake Total 2270 ml Output Total 50 ml Balance 2220 ml RIKKI HOLLIS MD May 21, 2021 09:31
--- NOTE | 2021-05-21 13:32 | IPNPDOC ---
Date Seen The patient was seen on 05/21/21. Progress Note SUBJECTIVE: Distended but improved XR this AM. Stopped IVFs, on full diet. She denies chest pain, increased abdominal pain, nausea, vomiting, shortness of breath. OBJECTIVE: PHYSICAL EXAMINATION: VITAL SIGNS: see below GENERAL APPEARANCE: NAD, conversational, AOx3 HEENT: EOMI, dry MM CARDIOVASCULAR: RRR, no m/r/g LUNGS: CTAB, no w/r/r ABDOMEN: distended abdomen, tympanic, bowel sounds +, nontender EXTREMITIES: WWP, no edema NEUROLOGICAL: CN 3-12 intact, no focal deficits PSYCHIATRIC: mood and affect appropriate LABORATORY DATA and IMAGING: Discussed above, see below for full details ECHOCARDIOGRAM: To be done after weekend CXR 05/20/21: 1. A nasogastric tube coursing through the mediastinum in curved back on itself in the fundus of the stomach in the left upper quadrant. 2. Lungs hypoinflated today with by basilar fibro atelectatic change and some patchy perihilar atelectasis or infiltrates noted. 3. There is venous hypertension with engorgement of upper lobe veins and small effusions. No gross cardiomegaly. 4. Barium in the transverse colon and splenic flexure from yesterday's small bowel series. No dilated loops. MICROBIOLOGY: blood cultures-- NG UCx contaminated ASSESSMENT: 85 yo W with a history of DM (a1c 7.5% in 02/2021), CKD 3 with baseline Cr 1.8, HTN, HLD, obesity, KALEY, asthma, who presented to the ED for persistent gassiness and abdominal discomfort and now being admitted for medical management of an SBO after declining surgical intervention. PLAN: SBO -Improved abdXR -Abd remains distended but passing gas, daily BM -Stopped fluids -Full diet per surgery recs -zofran PRN -Daily CBC, BMP -Surgery following CHF, type unknown -BNP >4000, + b/l lower ext swelling, CXR above, O2 stable, urinating but no accurate I/O -No prior hx of HF -CXR: basilar fibro atelectatic change and some patchy perihilar atelectasis or infiltrates noted -Procalcitonin neg so not starting abx for PNA -Stopped gentle IVFs she was on for surgery -Lasix daily , f/u Cr in the AM -F/u echocardiogram UTI, contaminated specimen -UCx contaminated -WBC improving at 12K -Stopped ceftriaxone (Day 2) -Daily CBC Hypoglycemia likely 2/2 decreased PO intake -BS 77 this AM, not symptomatic -Hx of DM type II, HbA1c 7.5%, not on home meds -C/w FS AC/HS with full diet ordered -hypoglycemic protocol Hypokalemia 2/2 to lasix -K2.8 -Replace PRN Deconditioned state, unsteadiness on feet -PT: Pt continues to exhibit safety and mobility far below her baseline and will most likely require continue rehab prior to returning home. -Lives alone HTN: -Restarting Toprol XL only, holding ARB -Likely higher due to not getting meds and has been getting fluids -Watch for hypotension with lasix daily HLD: -hold statin, NPO Asthma: -substitute home mdi with advair GERD: -PPI IV daily, change to PO if tolerating full diet ok DVT ppx: heparin BID RESOLVED: DEMAR on CKD3 Dispo: Inpatient, PT/OT for safe discharge planning and anticipating rehab. VS, I&O, 24H, Fishbone Vital Signs/I&O Vital Signs Date Time Temp Pulse Resp B/P (MAP) Pulse Ox O2 Delivery O2 Flow Rate FiO2 05/21/21 06:00 98.8 88 18 146/62 (90) 93 Room Air I&O- Last 24 Hours up to 6 AM 05/21/21 06:00 Intake Total 2270 ml Output Total 50 ml Balance 2220 ml Laboratory Data 24H LABS Laboratory Tests 2 05/20/21 18:30: Bedside Glucose (Misc Panel) 75L 05/21/21 00:53: Bedside Glucose (Misc Panel) 71L 05/21/21 05:42: Bedside Glucose (Misc Panel) 73L 05/21/21 05:54: Nucleated Red Blood Cells % (auto) 0.0, Anion Gap 11, Glomerular Filtration Rate 52.2, Calcium Level 8.7L, Total Bilirubin 0.5, Aspartate Amino Transf (AST/SGOT) 14, Alanine Aminotransferase (ALT/SGPT) 13, Alkaline Phosphatase 75, Total Protein 6.6, Albumin 2.1L, Albumin/Globulin Ratio 0.5L CBC/BMP Laboratory Tests 05/21/21 05:54 Microbiology Microbiology 05/20/21 Urine Culture - Final, Complete 05/16/21 Blood Culture - Preliminary, Resulted No Growth after 72 hours. All specime... 05/16/21 Blood Culture - Preliminary, Resulted No Growth after 72 hours. All specime... Ana Rubio MD May 21, 2021 13:32
[2021-05-21 14:00] VITALS: BP 138/59
[2021-05-21 17:32] LABS: CREATININE FOR GFR 1.2 MG/DL (0.55-1.30); GLOMERULAR FILTRATION RATE 45.2 (>32); POTASSIUM SERUM 3.8 MEQ/L (3.5-5.1)
[2021-05-21] MEDS: PANTOPRAZOLE 40MG VIAL (C9113 PER 1) IV SCH (20:05)
[2021-05-21] MEDS: METOPROLOL SUCC (TopROL XL) 50MG **XL** TAB PO SCH (20:07)
[2021-05-21 22:00] VITALS: BP 123/53
[2021-05-22] MEDS: MORPHINE 2 MG/ML 1ML VIAL (J2270) IV PRN (04:00)
[2021-05-22] MEDS: METOCLOPRAMIDE INJ 10MG/2ML VIAL (J2765 PER 1) IV SCH (05:46)
[2021-05-22 06:00] VITALS: BP 121/58
[2021-05-22 06:15] LABS: HEMATOCRIT 30.9 % (36.0-47.0); HEMOGLOBIN 10.1 g/dl (12.0-15.5); MEAN CORPUSCULAR HEMOGLOBIN 28.5 pg (27.0-33.0); MEAN CORPUSCULAR HGB CONC 32.7 g/dl (32.0-36.5); MEAN CORPUSCULAR VOLUME 87.3 fl (80.0-96.0); PLATELET COUNT, AUTOMATED 319 10^3/uL (150-450); RED BLOOD COUNT 3.54 10^6/uL (4.00-5.40); WHITE BLOOD COUNT 13.7 10^3/uL (4.0-10.0)
[2021-05-22 06:40] LABS: ALBUMIN 2.3 GM/DL (3.2-5.2); BILIRUBIN,TOTAL 0.5 MG/DL (0.2-1.0); CALCIUM LEVEL 8.5 MG/DL (8.8-10.2); CREATININE FOR GFR 1.32 MG/DL (0.55-1.30); GLOMERULAR FILTRATION RATE 40.5 (>32); POTASSIUM SERUM 3.7 MEQ/L (3.5-5.1); TOTAL PROTEIN 6.4 GM/DL (6.4-8.2)
[2021-05-22] MEDS: ADVAIR HFA 115/21MCG INHALER INH SCH ×2 (07:42→19:28)
[2021-05-22] MEDS: HEPARIN SOD (PORCINE) 5000UNITS/ML 1ML VIAL/SYRINGE SC SCH ×2 (08:19→20:43)
--- NOTE | 2021-05-22 08:41 | IPNPDOC ---
Text Note Date of Service The patient was seen on 05/22/21. NOTE General surgery. Dr. Elkins The patient is an 85-year-old female admitted for SBO. The patient is out of bed to the chair. Tolerating full liquids. Reports she is continuing to have bowel movements and flatus, no bowel movements were documented yesterday, 2 on 05/20. Denies any abdominal pain. Afebrile VSS. Awake and alert, sitting in the chair. Appears comfortable in no acute distress. MMM Abdomen is soft and nontender, nondistended, no guarding or rebound, no gri macing. WBC 13.7 Assessment/plan SBO The patient is reviewed and examined as per Dr. Elkins this morning The patient has been having bowel movements and flatus, tolerating full liquids. Will advance to soft diet. Continue out of bed and encourage ambulation as much as possible. Continue to monitor. VS,Fishbone, I+O VS, Fishbone, I+O Laboratory Tests 05/21/21 16:09 05/22/21 05:45 Vital Signs Date Time Temp Pulse Resp B/P (MAP) Pulse Ox O2 Delivery O2 Flow Rate FiO2 05/22/21 06:00 98.7 79 18 121/58 (79) 92 Room Air I&O- Last 24 Hours up to 6 AM 05/22/21 05:59 Intake Total 2260 ml Output Total 500 ml Balance 1760 ml Keren Choudhury May 22, 2021 08:41
[2021-05-22] MEDS ORDERED: ONDANSETRON 4 MG TAB PO PRN (08:45)
[2021-05-22] MEDS ORDERED: ACETAMINOPHEN TAB 650MG DOSE (2X325MG) PO PRN (08:45)
[2021-05-22] MEDS ORDERED: CEFDINIR 300 MG CAP (OMNICEF) PO SCH (09:00)
[2021-05-22] MEDS ORDERED: CEFUROXIME 500 MG TAB PO SCH (09:00)
[2021-05-22] MEDS ORDERED: FUROSEMIDE 40MG/4ML VIAL (J1940) IV SCH (09:00)
[2021-05-22] MEDS: FUROSEMIDE 40MG/4ML VIAL (J1940) IV SCH (09:09)
[2021-05-22] MEDS: traMADol 50 MG TAB PO PRN (09:10)
[2021-05-22] MEDS: OMEPRAZOLE 20 MG CAP PO SCH (09:10)
[2021-05-22] MEDS: HumaLOG INSULIN (NovoLOG) PER UNIT SC SCH ×4 (09:17→20:40)
--- NOTE | 2021-05-22 12:16 | REP ---
INDICATION: worsening left knee pain. COMPARISON: None. TECHNIQUE: 2 x 2 mm increments using helical technique and reconstructed both sagittal coronal planes FINDINGS: There is advanced tricompartmental narrowing with tricompartmental subchondral sclerosis and subchondral cyst formation. There is prominent tricompartmental marginal osteophytosis. There is no evidence of an acute fracture, dislocation, or subluxation. 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 Tricompartmental degenerative changes as described above. 2. Joint effusion and Amezcua's cyst as described above. <Electronically signed by Karri Castaneda > 05/22/21 [id number]
--- NOTE | 2021-05-22 12:54 | REP ---
INDICATION: incr lower ext swelling, r/o dvt. COMPARISON: None. TECHNIQUE: Multiple ultrasonographic images of the deep venous structures of the bilateral lower extremity were obtained from the inguinal ligament to the ankle. Venous compression techniques, color doppler imaging, and augmentation techniques were also obtained where appropriate. As per the ACR guidelines the anterior tibial vein can not be effectively evaluated. Only compression techniques in the calf on the peroneal and posterior tibial veins was attempted/performed. FINDINGS: There is no abnormal echogenic material seen within any of the visualized deep venous structures that would suggest acute thrombosis. Coaptation is unremarkable throughout. Doppler interrogation shows an expected response to respiratory variability and augmentation in the thigh. Compression techniques in the calf were unobtainable. The color flow images show what appears to be a normal vascular pattern throughout the thigh. IMPRESSION: There is no ultrasonographic evidence of deep venous thrombosis involving any of the visualized deep venous structures of the bilateral lower extremity as described above. Due to technical parameters calf vein DVT can not be ruled out. <Electronically signed by Karri Castaneda > 05/22/21 [id number]
[2021-05-22 14:00] VITALS: BP 123/56
--- NOTE | 2021-05-22 19:53 | IPNPDOC ---
Date Seen The patient was seen on 05/22/21. Progress Note SUBJECTIVE: Distended but continues to pass flatus, have BM. tolerating diet. Decr. lasix b/c Cr bumped but still fluid overloaded. She denies chest pain, increased abdominal pain, nausea, vomiting, shortness of breath. OBJECTIVE: PHYSICAL EXAMINATION: VITAL SIGNS: see below GENERAL APPEARANCE: NAD, conversational, AOx3 HEENT: EOMI, dry MM CARDIOVASCULAR: RRR, no m/r/g LUNGS: CTAB, no w/r/r ABDOMEN: distended abdomen, bowel sounds +, nontender EXTREMITIES: WWP, + 2pitting edema in the b/l lower ext NEUROLOGICAL: CN 3-12 intact, no focal deficits PSYCHIATRIC: mood and affect appropriate LABORATORY DATA and IMAGING: Discussed above, see below for full details ECHOCARDIOGRAM: To be done after weekend CXR 05/20/21: 1. A nasogastric tube coursing through the mediastinum in curved back on itself in the fundus of the stomach in the left upper quadrant. 2. Lungs hypoinflated today with by basilar fibro atelectatic change and some patchy perihilar atelectasis or infiltrates noted. 3. There is venous hypertension with engorgement of upper lobe veins and small effusions. No gross cardiomegaly. 4. Barium in the transverse colon and splenic flexure from yesterday's small renaldo wel series. No dilated loops. MICROBIOLOGY: blood cultures-- NG UCx contaminated ASSESSMENT: 85 yo W with a history of DM (a1c 7.5% in 02/2021), CKD 3 with baseline Cr 1.8, HTN, HLD, obesity, KALEY, asthma, who presented to the ED for persistent gassiness and abdominal discomfort and now being admitted for medical management of an SBO after declining surgical intervention. PLAN: SBO -Abd remains distended but passing gas, daily BM -Stopped fluids -Soft diet per surgery recs -Daily CBC, BMP, encourage ambulation -Surgery following CHF, type unknown -BNP >4000, + b/l lower ext swelling, CXR above, O2 stable, urinating but no accurate I/O -No prior hx of HF -CXR: basilar fibro atelectatic change and some patchy perihilar atelectasis or infiltrates noted -Procalcitonin neg so not starting abx for PNA -Lasix daily but decreased dose , f/u Cr in the AM -F/u echocardiogram DONE 05/22/21 -Weigh daily, close monitoring of I&O's, fluid restriction UTI, contaminated specimen -UCx contaminated -WBC increased to 13K- unlikely from UTI -Stopped ceftriaxone -Daily CBC Left knee/leg pain -F/u CT left knee, report pending -Concern is for effusion or needing to be tapped as WBC remains elevated -Pain control with tylenol, tramadol Lower ext swelling likely 2/2 to CHF, dependent edema -Doppler: neg for DVT -C/w tx above under CHF -Pain control with tylenol PRN, tramadol Hypoglycemia likely 2/2 decreased PO intake- RESOLVED with taking diet -Hx of DM type II, HbA1c 7.5%, not on home meds -C/w FS AC/HS with soft diet ordered -hypoglycemic protocol Hypokalemia 2/2 to lasix- resolved Deconditioned state, unsteadiness on feet -PT: Pt continues to exhibit safety and mobility far below her baseline and will most likely require continue rehab prior to returning home. -Lives alone HTN: -Restarting Toprol XL only, holding ARB -Likely higher due to not getting meds and has been getting fluids -Watch for hypotension with lasix daily HLD: -statin Asthma: -substitute home mdi with mauricio GERD: -PPI DVT ppx: heparin BID RESOLVED: DEMAR on CKD3 Dispo: Inpatient, PT/OT for safe discharge planning and anticipating rehab. VS, I&O, 24H, Fishbone Vital Signs/I&O Vital Signs Date Time Temp Pulse Resp B/P (MAP) Pulse Ox O2 Delivery O2 Flow Rate FiO2 05/22/21 14:00 98.9 109 18 123/56 (78) 92 Room Air I&O- Last 24 Hours up to 6 AM 05/22/21 06:00 Intake Total 1820 ml Output Total 600 ml Balance 1220 ml Laboratory Data 24H LABS Laboratory Tests 2 05/21/21 21:10: Bedside Glucose (Misc Panel) 207H 05/22/21 05:45: Nucleated Red Blood Cells % (auto) 0.0, Anion Gap 8, Glomerular Filtration Rate 40.5, Calcium Level 8.5L, Total Bilirubin 0.5, Aspartate Amino Transf (AST/SGOT) 12, Alanine Aminotransferase (ALT/SGPT) 14, Alkaline Phosphatase 80, JB-Bkb-C-Type Natriuretic Peptide 2714H, Total Protein 6.4, Albumin 2.3L, Albumin/Globulin Ratio 0.6L 05/22/21 12:57: Bedside Glucose (Misc Panel) 162H 05/22/21 17:20: Bedside Glucose (Misc Panel) 206H CBC/BMP Laboratory Tests 05/22/21 05:45 Microbiology Microbiology 05/20/21 Urine Culture - Final, Complete 05/16/21 Blood Culture - Final, Complete NO GROWTH AFTER 5 DAYS 05/16/21 Blood Culture - Final, Complete NO GROWTH AFTER 5 DAYS Ana Rubio MD May 22, 2021 19:53
[2021-05-22] MEDS: NYSTATIN 100,000 UNITS/GM TOPICAL PWD 15 GM TOP SCH (20:44)
[2021-05-22] MEDS: METOPROLOL SUCC (TopROL XL) 50MG **XL** TAB PO SCH (20:44)
[2021-05-22] MEDS: SIMVASTATIN 20 MG TAB PO SCH (20:44)
[2021-05-22 22:00] VITALS: BP 117/59
[2021-05-23 06:00] VITALS: BP 115/60
[2021-05-23 06:55] LABS: HEMATOCRIT 31.9 % (36.0-47.0); HEMOGLOBIN 10.5 g/dl (12.0-15.5); MEAN CORPUSCULAR HEMOGLOBIN 28.7 pg (27.0-33.0); MEAN CORPUSCULAR HGB CONC 32.9 g/dl (32.0-36.5); MEAN CORPUSCULAR VOLUME 87.2 fl (80.0-96.0); PLATELET COUNT, AUTOMATED 315 10^3/uL (150-450); RED BLOOD COUNT 3.66 10^6/uL (4.00-5.40); WHITE BLOOD COUNT 14.8 10^3/uL (4.0-10.0)
[2021-05-23 07:10] LABS: ALBUMIN 2.3 GM/DL (3.2-5.2); BILIRUBIN,TOTAL 0.4 MG/DL (0.2-1.0); CALCIUM LEVEL 9.1 MG/DL (8.8-10.2); CREATININE FOR GFR 1.79 MG/DL (0.55-1.30); GLOMERULAR FILTRATION RATE 28.5 (>32); TOTAL PROTEIN 6.7 GM/DL (6.4-8.2)
[2021-05-23] MEDS: HEPARIN SOD (PORCINE) 5000UNITS/ML 1ML VIAL/SYRINGE SC SCH ×2 (08:00→22:01)
[2021-05-23] MEDS: FUROSEMIDE 40MG/4ML VIAL (J1940) IV SCH (08:01)
[2021-05-23] MEDS: HumaLOG INSULIN (NovoLOG) PER UNIT SC SCH ×4 (08:01→21:00)
[2021-05-23] MEDS: traMADol 50 MG TAB PO PRN (08:03)
[2021-05-23] MEDS: ADVAIR HFA 115/21MCG INHALER INH SCH ×2 (08:15→20:20)
[2021-05-23 08:25] VITALS: BP 119/54
--- NOTE | 2021-05-23 08:37 | IPNPDOC ---
Text Note Date of Service The patient was seen on 05/23/21. NOTE General surgery. Dr. Elkins The patient is an 85-year-old female admitted for SBO. The patient is out of bed to the chair. Tolerating soft diet. One bowel movement last evening. The patient denies abdominal pain, nausea, vomiting. Afebrile VSS. Awake and alert, sitting in the chair. Appears comfortable in no acute distress. MMM Abdomen is soft and nontender, nondistended, no guarding or rebound, no grimacing. WBC 14.8 Assessment/plan SBO The patient is reviewed and examined as per Dr. Elkins this morning Symptoms have resolved, the patient denies abdominal pain, has been having bowel movements and flatus, tolerating soft diet. Reconsult surgery if needed. VS,Fishbone, I+O VS, Fishbone, I+O Laboratory Tests 05/23/21 06:25 Vital Signs Date Time Temp Pulse Resp B/P (MAP) Pulse Ox O2 Delivery O2 Flow Rate FiO2 05/23/21 08:03 16 05/23/21 06:00 98.0 85 115/60 (78) 93 Room Air I&O- Last 24 Hours up to 6 AM 05/23/21 05:59 Intake Total 960 ml Output Total 100 ml Balance 860 ml Keren Choudhury May 23, 2021 08:37
--- NOTE | 2021-05-23 09:49 | IPN ---
PROGRESS NOTE DATE: 05/23/2021 SUBJECTIVE: The patient has a slight cough, she said that she had a bowel movement. No chest pain, pressure or tightness this morning. Patient requires assistance with ambulation due to significant debility. OBJECTIVE: VITAL SIGNS: Temperature 98.3, pulse 94, respiratory rate 18, blood pressure is 119/54, 95% on room air. GENERAL: Awake, alert and oriented to herself, cooperative, in no distress. Speaks in full sentences. HEENT: No JVD or thyromegaly, or cervical lymphadenopathy. No stridor. HEART: S1 and S2, sinus rhythm. No murmurs, rubs or gallops. LUNGS: Diminished but clear to auscultation. No wheezing or rales. ABDOMEN: Soft, distended. Positive bowel sounds, obese. No rebound or guarding. EXTREMITIES: 2+ pitting edema. LABORATORY DATA/IMAGING STUDIES/MICROBIOLOGY: Please see the chart. ASSESSMENT AND PLAN: An 85-year-old female with a history of CKD, Stage III, baseline creatinine of 1.8, hypertension, dyslipidemia, obesity, anxiety disorder, diabetes, asthma, was admitted to the Emergency Room due to small bowel obstruction. IMPRESSION: 1. Small bowel obstruction. 2. CHF with diastolic dysfunction. 3. Abnormal urinalysis, negative for UTI. 4. Chronic left knee/leg pain, osteoarthritis. 5. Hyperglycemia, resolved. 6. Hyperkalemia, resolved. PLAN: Patient is managed by General Surgery, tolerating her diet well. Continue with omeprazole for now. For heart failure, patient is currently on Lasix. Blood pressure is controlled on metoprolol. Continue with PT/OT services and defer to surgery for any changes in management for bowel obstruction.
[2021-05-23] MEDS: OMEPRAZOLE 20 MG CAP PO SCH (09:53)
[2021-05-23] MEDS: NYSTATIN 100,000 UNITS/GM TOPICAL PWD 15 GM TOP SCH ×2 (09:53→22:01)
--- NOTE | 2021-05-23 10:21 | REP ---
INDICATION: sob. COMPARISON: 05/20/2021 TECHNIQUE: AP portable seated. FINDINGS: Elevation of the right diaphragm again seen. There is better level of inflation overall. Some venous hypertension suggested with engorgement of upper lobe veins but no pulmonary edema. No definite effusion but small posterior effusions difficult to exclude. No dense consolidation. There are some subsegmental atelectatic changes adjacent to the elevated right diaphragm. There is calcified and tortuous. NG tube is been removed. Degenerative changes in the spine and shoulders. IMPRESSION: 1. No cardiomegaly but some pulmonary venous hypertension. I see no galo edema. No definite effusion but small posterior fusions could be obscured. 2. Elevated right diaphragm with adjacent compressive atelectatic changes. 3. Aorta calcified at the arch and mildly tortuous. Degenerative changes in the spine and shoulders. <Electronically signed by Chin Yadav > 05/23/21 1019
--- NOTE | 2021-05-23 11:52 | ECHO ---
ECHOCARDIOGRAM DATE OF PROCEDURE: 05/22/2021 Age: Gender: Female Height: 165 cm Weight: 83.7 kg REFERRING PHYSICIAN: Ana Rubio M.D. INDICATION: Heart failure, unspecified. MEASUREMENTS: 2D Measurements: Aortic root 2.9 cm Intraventricular septum 1.39 cm Posterior wall 1.20 cm Left ventricle diastole 3.3 cm Inferior vena cava 1.2 cm (more than 50% respiratory variation) Doppler Measurements: No aortic stenosis No aortic regurgitation Aortic valve velocity 106 cm/sec No mitral stenosis No mitral regurgitation Mitral E velocity 62.6 cm/sec Mitral A velocity 116 cm/sec Mild tricuspid regurgitation Estimated right ventricle systolic pressure 50-55 mmHg Estimated right atrial pressure 5-10 mmHg No pulmonic regurgitation MITRAL ANNULAR TISSUE DOPPLER: Not performed DESCRIPTION: Rhythm was sinus tachycardia. This was a moderately technically difficult echocardiogram which was performed with the patient supine. This was a 2D, M-mode, color flow Doppler examination. CONCLUSIONS: 1. Mild concentric left ventricular hypertrophy with hyperdynamic systolic function. Left ventricular ejection fraction (LVEF) 75% by visual assessment. No regional left ventricular (LV) wall motion abnormalities. Grade 1 LV diastolic dysfunction. 2. Suggestive of moderate elevation of right ventricle systolic pressure (50-55 mmHg). Mild right ventricle dilatation with normal right ventricle systolic function. 3. Moderate aortic valve stenosis of a 3-cusp aortic valve. No aortic stenosis or regurgitation. 4. Moderate mitral annular calcification. No mitral stenosis or regurgitation. 5. No pericardial effusion. 6. Suggestive of normal central venous pressure (CVP) (5-10 mmHg).
[2021-05-23 13:28] LABS: C REACTIVE PROTEIN QUANTITATIV 24.2 MG/DL (0.00-0.30)
--- NOTE | 2021-05-23 14:30 | REP ---
INDICATION: left knee pain/swelling COMPARISON: None TECHNIQUE: AP and lateral views FINDINGS: There is marked tricompartmental narrowing and particularly affecting the lateral compartment where there is cortical irregularity involving both the lateral femoral condyle and lateral tibial plateau. There is tricompartmental marginal osteophytosis. The bones are demineralized. There is no evidence of an acute fracture. IMPRESSION: Advanced chronic changes as described above. <Electronically signed by Karri Castaneda > 05/23/21 [id number]
[2021-05-23 14:33] LABS: ERYTHROCYTE SEDIMENTATION RATE 70 mm/hr (0-30)
[2021-05-23] MEDS ORDERED: NS 1,000 ML IV SCH (15:50)
[2021-05-23] MEDS: cefTRIAXone SOD 1 GM in D5W MINI-BAG PLUS 50 ML IV SCH (17:40)
[2021-05-23 21:00] VITALS: BP 114/55
[2021-05-23 22:00] VITALS: BP 114/55
[2021-05-23] MEDS: SIMVASTATIN 20 MG TAB PO SCH (22:01)
[2021-05-23] MEDS: METOPROLOL SUCC (TopROL XL) 50MG **XL** TAB PO SCH (22:02)
[2021-05-23 22:39] LABS: CALCIUM LEVEL 8.4 MG/DL (8.8-10.2); CREATININE FOR GFR 1.78 MG/DL (0.55-1.30); GLOMERULAR FILTRATION RATE 28.7 (>32); POTASSIUM SERUM 3.6 MEQ/L (3.5-5.1)
[2021-05-24] MEDS: traMADol 50 MG TAB PO PRN ×2 (04:08→18:59)
[2021-05-24 04:09] LABS: SOURCE, BODY FLUID LFT KNEE; SYNOVIAL FLUID COLOR PALE YELLOW (COLORLESS)
[2021-05-24 06:00] VITALS: BP 105/54
[2021-05-24 06:24] LABS: CRYSTALS, BODY FLUID CA PYROPHOSPHATE (NONE SEEN); SOURCE, BODY FLUID CRYSTALS LFT KNEE
[2021-05-24] MEDS: ADVAIR HFA 115/21MCG INHALER INH SCH ×2 (07:45→20:18)
[2021-05-24 07:51] VITALS: BP 106/55
[2021-05-24] MEDS ORDERED: NS 1,000 ML IV SCH (08:40)
--- NOTE | 2021-05-24 08:53 | CR ---
CONSULTATION DATE: 05/23/2021 CONSULTING SERVICE: Orthopedic Surgery CONSULTING PHYSICIAN: LELA MURRAY MD HISTORY OF PRESENT ILLNESS: This is an 85-year-old female who was initially admitted on the 15 of May for a bowel obstruction. She has a complicated medical history to include chronic kidney disease, hypertension, hyperlipidemia, obesity, generalized anxiety disorder, asthma and BAKARI. Orthopedic Surgery was consulted for left knee pain status post radiographs and CT scan obtained by the provider which is indicative for osteoarthritis and a Amezcua's cyst. Given her inflammatory markers, Orthopedic Surgery was consulted to rule out a septic knee versus a gout knee. PAST MEDICAL HISTORY: Diabetes mellitus, chronic kidney disease, hypertension, hyperlipidemia, obesity, generalized anxiety disorder, asthma, BAKARI. PAST SURGICAL HISTORY: Appendectomy. SOCIAL HISTORY: , lives in [place] by herself and has aides for a few hours a day, her son lives in [place]. Denies tobacco use, alcohol use or illicit drug use. FAMILY MEDICAL HISTORY: Noncontributory. ALLERGIES: Please see internal medicine note. REVIEW OF SYSTEMS: A 14 point review of systems is negative unless otherwise described in the HPI above. PHYSICAL EXAMINATION: Alert and oriented to person, time and place. Left knee appeared to have a moderate effusion. There were no breaks in the skin. Patient did have pain with weightbearing and/or an axial load. She was otherwise neurovascularly intact to the left lower extremity. Active range of motion was 0 to about 45 degrees. She had a 5/5 motor strength to the EHL, FHL, tibialis anterior, gastrocnemius and peroneal musculature. Sensation intact to light touch to deep and superficial peroneal, peroneal, sural saphenous and tibial nerve distributions, 2+ dorsalis pedis and posterior tibial arterial pulse, brisk capillary refill of the digits. RADIOGRAPHS: Radiographs demonstrate significant osteoarthritis to the left knee to include complete joint obliteration of the medial and lateral aspects and patellofemoral joint with significant joint space narrowing and sclerotic changes. She has complete bone on bone contact in the medial and lateral compartments with significant sclerotic changes about the lateral femoral condyle. This is indicative of severe tricompartmental osteoarthritis. CT scan demonstrates significant tricompartmental osteoarthritis as well as a posterior Amezcua's cyst likely consistent with a degenerative meniscus. Synovial analysis: Patient had a left knee aspiration yielding 10 ml of synovial fluid. White blood cell count was 6995, crystals were pending as of this dictation. Per report from the labourers, there may have been crystals, however this is not confirmed with a more experienced mathematical engineering technician. IMPRESSION: An 85-year-old female with significant left knee tricompartmental osteoarthritis without septic knee with possible gout. PLAN: At this point in time, the patient is planning to discharge to a rehabilitation center in [place], [place]. However, I would wait until the final analysis of the left knee synovial fluid is complete prior to discharge. Patient appears to not have septic joint given the white blood cell count of 6995 well below the threshold of 50,000 white blood cells. However, she may have gout given that the crystal analysis is still pending. If she does have gout, I would recommend a rheumatology consult for further treatment options. At this point in time, I suspect the patient may have gout and a rheumatology consult may be in order, however this information will also be helpful for the rehabilitative center in [place], [place] if she does decide to discharge this morning. Please consult myself, Dr. Lela Murray, with any further questions.
[2021-05-24] MEDS: OMEPRAZOLE 20 MG CAP PO SCH (09:35)
[2021-05-24] MEDS: HumaLOG INSULIN (NovoLOG) PER UNIT SC SCH ×4 (09:37→21:00)
[2021-05-24] MEDS: HEPARIN SOD (PORCINE) 5000UNITS/ML 1ML VIAL/SYRINGE SC SCH ×2 (09:37→21:26)
[2021-05-24] MEDS: NYSTATIN 100,000 UNITS/GM TOPICAL PWD 15 GM TOP SCH ×2 (09:38→21:31)
[2021-05-24 10:11] LABS: BASO # 0.1 10^3/uL (0.0-0.2); BASO % 0.6 % (0.0-1.0); EOS # 0.4 10^3/uL (0.0-0.5); EOS % 3.2 % (0.0-3.0); HEMATOCRIT 29.1 % (36.0-47.0); HEMOGLOBIN 9.4 g/dl (12.0-15.5); LYMPH # 1.2 10^3/uL (1.5-5.0); LYMPH % 10.3 % (24.0-44.0); MEAN CORPUSCULAR HEMOGLOBIN 28.3 pg (27.0-33.0); MEAN CORPUSCULAR HGB CONC 32.3 g/dl (32.0-36.5); MEAN CORPUSCULAR VOLUME 87.7 fl (80.0-96.0); MONO # 1.1 10^3/uL (0.0-0.8); MONO % 9.6 % (2.0-8.0); NEUTROPHILS # 8.5 10^3/uL (1.5-8.5); NEUTROPHILS % 74.2 % (36.0-66.0); PLATELET COUNT, AUTOMATED 287 10^3/uL (150-450); RED BLOOD COUNT 3.32 10^6/uL (4.00-5.40); WHITE BLOOD COUNT 11.5 10^3/uL (4.0-10.0)
[2021-05-24 10:41] LABS: CALCIUM LEVEL 8.3 MG/DL (8.8-10.2); CREATININE FOR GFR 1.65 MG/DL (0.55-1.30); ERYTHROCYTE SEDIMENTATION RATE 75 mm/hr (0-30); GLOMERULAR FILTRATION RATE 31.3 (>32); POTASSIUM SERUM 3.9 MEQ/L (3.5-5.1)
[2021-05-24 10:42] LABS: C REACTIVE PROTEIN QUANTITATIV 16.9 MG/DL (0.00-0.30)
--- NOTE | 2021-05-24 12:29 | DS.PDOC ---
Discharge Summary General Date of Admission May 15, 2021 at 18:24 Date of Discharge 05/24/21 DISCHARGED TO [facility] Discharge Summary PROCEDURES PERFORMED DURING STAY: 05/23/21 [facility]: ORTHO DR NIETO SURGERY DR HOLLIS DISCHARGE DIAGNOSES 1. Small bowel obstruction. 2. CHF with diastolic dysfunction., compensated 3. Abnormal urinalysis, negative for UTI. 4. Left LE moscoso's cysts, left knee effusion s/p arthrocentesis neg for septic arthritis 5. Hyperglycemia, resolved. 6. Hyperkalemia, resolved. DISCHARGE MEDICATIONS: SEE BELOW DISCHARGE INSTRUCTIONS: pcp fu 1 wk. fu on synovial fluid culture. surgery fu 1-2wks HOSPITAL COURSE: An 85-year-old female with a history of CKD, Stage III, baseline creatinine of 1.8, hypertension, dyslipidemia, obesity, anxiety disorder, diabetes, asthma, was admitted to the Emergency Room due to small bowel obstruction, conservatively managed by General Surgery, and improved on npo status, ng tube suctioning, and eventually advanced on her diet which she is tolerating well. Pt had abnormal UA but no c/o, but w persistent leukocytosis and left knee effusion, us done negative for dvt. CT left le: moscoso's cyst and left knee effusion s/p arthrocentesis negative for septic arthritis. cx: no organism. s/p iv ceftriaxone. Pt is transferred to [facility]u for rehab services. DISCHARGE PHYSICAL EXAMINATION: VITALS: SEE BELOW GENERAL: Awake, alert and oriented to herself, cooperative, in no distress. Speaks in full sentences. HEENT: No JVD or thyromegaly, or cervical lymphadenopathy. No stridor. HEART: S1 and S2, sinus rhythm. No murmurs, rubs or gallops. LUNGS: Diminished but clear to auscultation. No wheezing or rales. ABDOMEN: Soft, distended. Positive bowel sounds, obese. No rebound or guarding. EXTREMITIES: Left calf larger than right. +edema. LABORATORY DATA/IMAGING STUDIES/MICROBIOLOGY: Please see the chart. TIME SPENT ON DISCHARGE: 30 MIN Vital Signs/I&Os Vital Signs Date Time Temp Pulse Resp B/P (MAP) Pulse Ox O2 Delivery O2 Flow Rate FiO2 05/24/21 07:51 99.0 84 18 106/55 (72) 92 Room Air I&O- Last 24 Hours up to 6 AM0 05/24/21 06:00 Intake Total 1860 ml Output Total 625 ml Balance 1235 ml Laboratory Data Labs 24H Laboratory Tests 2 05/23/21 17:36: Bedside Glucose (Misc Panel) 175H 05/23/21 18:55: Urine Color STRAW, Urine Appearance CLEAR, Urine pH 5.0, Urine Specific [place] 1.005, Urine Protein NEGATIVE, Urine Glucose (UA) NEGATIVE, Urine Ketones NEGATIVE, Urine Blood NEGATIVE, Urine Nitrite NEGATIVE, Urine Bilirubin NEGATIVE, Urine Urobilinogen 0.2, Urine Leukocyte Esterase NEGATIVE, Urine WBC (Auto) 1, Urine RBC (Auto) 0, Urine Hyaline Casts (Auto) 0, Urine Bacteria (Auto) NEGATIVE, Urine Squamous Epithelial Cells 0, Urine Sperm (Auto) , Coronavirus (COVID-19)(PCR) NEGATIVE 05/23/21 20:16: Bedside Glucose (Misc Panel) 189H 05/23/21 22:20: Anion Gap 9, Glomerular Filtration Rate 28.7L, Calcium Level 8.4L 05/24/21 03:40: Body Fluid WBC (Auto) 6995H, Body Fluid RBC (Auto) < 2, Body Fluid Mononuclear Cells % Auto 13.6H, Fluid Polymorphonuclear Cell % Auto 86.4H, Body Fluid Crystals CA PYROPHOSPHATEH, Body Fluid Crystal Source LFT KNEE, Synovial Fluid Source LFT KNEE, Synovial Fluid Color PALE YELLOW, Synovial Fluid Appearance CLOUDY 05/24/21 07:50: Bedside Glucose (Misc Panel) 153H 05/24/21 09:55: Immature Granulocyte % (Auto) 2.1, Neutrophils (%) (Auto) 74.2H, Lymphocytes (%) (Auto) 10.3L, Monocytes (%) (Auto) 9.6H, Eosinophils (%) (Auto) 3.2H, Basophils (%) (Auto) 0.6, Neutrophils # (Auto) 8.5, Lymphocytes # (Auto) 1.2L, Monocytes # (Auto) 1.1H, Eosinophils # (Auto) 0.4, Basophils # (Auto) 0.1, Nucleated Red Blood Cells % (auto) 0.0, Erythrocyte Sedimentation Rate 75H, Anion Gap 8, Glomerular Filtration Rate 31.3L, Calcium Level 8.3L, C-Reactive Protein, Quantitative 16.90H, Procalcitonin 0.22 CBC/BMP Laboratory Tests 05/23/21 22:20 05/24/21 09:55 FSBS Laboratory Tests Test 05/23/21 17:36 05/23/21 20:16 05/24/21 07:50 Range/Units Bedside Glucose (Misc Panel) 175 189 153 83-110 MG/DL Microbiology Microbiology 05/24/21 Anaerobic Culture, Received Pending 05/24/21 Gram Stain - Final, Resulted 05/24/21 Body Fluid Culture, Resulted Pending 05/20/21 Urine Culture - Final, Complete 05/16/21 Blood Culture - Final, Complete NO GROWTH AFTER 5 DAYS 05/16/21 Blood Culture - Final, Complete NO GROWTH AFTER 5 DAYS Discharge Medications Scheduled Magnesium (Magnesium) 250 Mg Tablet, 250 MG PO DAILY, (Reported) Metoprolol Succinate (Metoprolol Succinate) 50 Mg Tab.er.24h, 50 MG PO QHS, (Reported) Omeprazole (Omeprazole) 20 Mg Capsule.dr, 20 MG PO DAILY, (Reported) Simvastatin (Simvastatin) 20 Mg Tablet, 20 MG PO QHS, (Reported) Scheduled PRN Fluticasone Propion/Salmeterol (Fluticasone-Salmeterol 250-50) 1 Each Blst.w.dev, 1 PUFF INH BID PRN for SHORTNESS OF BREATH, (Reported) Allergies Coded Allergies: Sulfa (Sulfonamide Antibiotics) (Verified Adverse Reaction, Unknown, "go crazy", 05/15/21) WALLACE LAZO MD May 24, 2021 12:29
[2021-05-24 14:00] VITALS: BP 112/56
[2021-05-24] MEDS: cefTRIAXone SOD 1 GM in D5W MINI-BAG PLUS 50 ML IV SCH (17:24)
[2021-05-24] MEDS: SIMVASTATIN 20 MG TAB PO SCH (21:26)
[2021-05-24 21:27] VITALS: BP 123/59
[2021-05-24] MEDS: METOPROLOL SUCC (TopROL XL) 50MG **XL** TAB PO SCH (21:27)
[2021-05-24 22:00] VITALS: BP 129/60
[2021-05-25 05:14] VITALS: BP 109/56
[2021-05-25] MEDS: ADVAIR HFA 115/21MCG INHALER INH SCH (07:51)
[2021-05-25] MEDS: HumaLOG INSULIN (NovoLOG) PER UNIT SC SCH (08:42)
[2021-05-25] MEDS: OMEPRAZOLE 20 MG CAP PO SCH (08:43)
[2021-05-25] MEDS: NYSTATIN 100,000 UNITS/GM TOPICAL PWD 15 GM TOP SCH (08:43)
[2021-05-25] MEDS: HEPARIN SOD (PORCINE) 5000UNITS/ML 1ML VIAL/SYRINGE SC SCH (08:43)
--- NOTE | 2021-05-25 09:06 | IPNPDOC ---
Text Note Date of Service The patient was seen on 05/25/21. NOTE Patient to be discharged today to the [facility] in [place], [place]. Discussed with anitha zuniga to discharge with outpatient follow up regarding fluid analysis. See discharge summary for full details regarding hospital stay and discharge instructions. VS,Fishbone, I+O VS, Fishbone, I+O Laboratory Tests 05/24/21 09:55 Vital Signs Date Time Temp Pulse Resp B/P (MAP) Pulse Ox O2 Delivery O2 Flow Rate FiO2 05/25/21 05:14 98.7 88 20 109/56 (73) 93 Room Air I&O- Last 24 Hours up to 6 AM 05/25/21 06:00 Intake Total 2585 ml Output Total 200 ml Balance 2385 ml KENDRICK BINGHAM MD May 25, 2021 09:06
[2021-05-25] MEDS: traMADol 50 MG TAB PO PRN (10:55)
== END 2021-05-25 11:14 | DRG 389 ==
LOC: M ED 11:23 → M ED INP 18:24 → ENRESERV 19:40 → M MSPAV 21:00
PROVIDERS: ADMIT Internal Medicine; ATTEND Internal Medicine
PROC: 0S9D3ZX Drainage of Left Knee Joint, Percutaneous Approach, Diagnostic (ICD-10-PCS; principal; 2021-05-23)
DX: K56.50 Intestinal adhesions [bands], unspecified as to partial versus complete obstruction (principal); I50.32 Chronic diastolic (congestive) heart failure; I13.0 Hypertensive heart and chronic kidney disease with heart failure and stage 1 through stage 4 chronic kidney disease, or unspecified chronic kidney disease; N17.9 Acute kidney failure, unspecified; E11.22 Type 2 diabetes mellitus with diabetic chronic kidney disease; E78.5 Hyperlipidemia, unspecified; E66.9 Obesity, unspecified; F41.9 Anxiety disorder, unspecified; J45.909 Unspecified asthma, uncomplicated; D50.9 Iron deficiency anemia, unspecified; Z90.49 Acquired absence of other specified parts of digestive tract; K21.9 Gastro-esophageal reflux disease without esophagitis; Z20.822 Contact with and (suspected) exposure to COVID-19; Z79.899 Other long term (current) drug therapy; Z88.2 Allergy status to sulfonamides; Z66 Do not resuscitate; E11.649 Type 2 diabetes mellitus with hypoglycemia without coma; M71.22 Synovial cyst of popliteal space [Baker], left knee; E87.6 Hypokalemia; Z72.3 Lack of physical exercise; M17.12 Unilateral primary osteoarthritis, left knee

== ENCOUNTER → 2021-09-07 | Outpatient (REF) | payer MEDICARE, OTHER ==
[~2021-09-07] MED LIST: FLUT1BLS5 INH; LOSA50TA28 PO; MAGN250T22 PO; METO1TAB7 PO; OMEP-173 PO; SIMV20TA22 PO
[2021-09-07 17:31] LABS: VITAMIN B12 LEVEL 1447 PG/ML (247-911)
== END ==
LOC: M LAB REF 16:05
PROVIDERS: ATTEND Internal Medicine
DX: G31.84 Mild cognitive impairment of uncertain or unknown etiology (principal); N39.0 Urinary tract infection, site not specified

== ENCOUNTER 2021-09-27 15:17 | Emergency (ER) | payer MEDICARE, OTHER ==
[~2021-09-27] VITALS: Ht 162.6 cm; Wt 74.0 kg
[2021-09-27] MEDS ORDERED: methylPREDNISolone 125MG 2ML VIAL IV ONE (15:25)
[2021-09-27] MEDS ORDERED: LIDOCAINE 2% 5ML JELLY UROJET TOP ONE (15:25)
[2021-09-27] MEDS ORDERED: ACETAMINOPHEN 650 MG SUPP PR PRN (15:25)
[2021-09-27 16:55] LABS: BASO # 0.1 10^3/uL (0.0-0.2); BASO % 0.7 % (0.0-1.0); EOS # 0.6 10^3/uL (0.0-0.5); EOS % 4.2 % (0.0-3.0); HEMATOCRIT 32.9 % (36.0-47.0); HEMOGLOBIN 10.3 g/dl (12.0-15.5); LYMPH # 1.5 10^3/uL (1.5-5.0); LYMPH % 10.9 % (24.0-44.0); MEAN CORPUSCULAR HEMOGLOBIN 26.4 pg (27.0-33.0); MEAN CORPUSCULAR HGB CONC 31.3 g/dl (32.0-36.5); MEAN CORPUSCULAR VOLUME 84.4 fl (80.0-96.0); MONO # 0.9 10^3/uL (0.0-0.8); MONO % 6.4 % (2.0-8.0); NEUTROPHILS # 10.6 10^3/uL (1.5-8.5); NEUTROPHILS % 77.1 % (36.0-66.0); PLATELET COUNT, AUTOMATED 384 10^3/uL (150-450); WHITE BLOOD COUNT 13.8 10^3/uL (4.0-10.0)
[2021-09-27 17:22] LABS: CALCIUM LEVEL 8.9 MG/DL (8.8-10.2); CREATININE FOR GFR 1.21 MG/DL (0.55-1.30); GLOMERULAR FILTRATION RATE 44.7 (>32); POTASSIUM SERUM 4.1 MEQ/L (3.5-5.1)
[2021-09-27 18:48] VITALS: BP 143/71
== END 2021-09-27 18:58 | disposition home or self-care (01) ==
LOC: M ED 15:17 → EDBD 15:17 → M ED 18:58
DX: R06.02 Shortness of breath (principal); E11.9 Type 2 diabetes mellitus without complications; I12.9 Hypertensive chronic kidney disease with stage 1 through stage 4 chronic kidney disease, or unspecified chronic kidney disease; N18.30 Chronic kidney disease, stage 3 unspecified; J45.909 Unspecified asthma, uncomplicated; E78.9 Disorder of lipoprotein metabolism, unspecified; E66.9 Obesity, unspecified; F41.1 Generalized anxiety disorder; Z79.899 Other long term (current) drug therapy

== ENCOUNTER → 2021-10-16 | Outpatient (CLI) | payer MEDICARE | LOC: M PLAIMG 10:06 | PROVIDERS: ATTEND Internal Medicine | DX: Z53.9 Procedure and treatment not carried out, unspecified reason (principal) ==

== ENCOUNTER 2021-10-27 10:17 | Inpatient (IN) | payer MEDICARE, OTHER ==
[~2021-10-27] VITALS: Ht 165.1 cm; Wt 76.8 kg
[2021-10-27] MEDS ORDERED: NS 500 ML IV ONE (10:20)
[2021-10-27 10:38] LABS: BASO # 0.1 10^3/uL (0.0-0.2); BASO % 0.5 % (0.0-1.0); EOS # 0.2 10^3/uL (0.0-0.5); EOS % 1.2 % (0.0-3.0); HEMATOCRIT 35.3 % (36.0-47.0); HEMOGLOBIN 11.2 g/dl (12.0-15.5); LYMPH # 0.8 10^3/uL (1.5-5.0); LYMPH % 5.5 % (24.0-44.0); MEAN CORPUSCULAR HEMOGLOBIN 26.7 pg (27.0-33.0); MEAN CORPUSCULAR HGB CONC 31.7 g/dl (32.0-36.5); MONO # 0.6 10^3/uL (0.0-0.8); MONO % 3.8 % (2.0-8.0); NEUTROPHILS # 13.2 10^3/uL (1.5-8.5); NEUTROPHILS % 88.6 % (36.0-66.0); PLATELET COUNT, AUTOMATED 392 10^3/uL (150-450); WHITE BLOOD COUNT 14.9 10^3/uL (4.0-10.0)
[2021-10-27 10:50] LABS: INR 0.98; PROTHROMBIN TIME 13.4 SECONDS (12.7-14.5)
[2021-10-27 10:51] LABS: PARTIAL THROMBOPLASTIN TIME 31.4 SECONDS (25.9-37.0)
[2021-10-27] MEDS ORDERED: PANTOPRAZOLE 40MG VIAL IV ONE (11:10)
[2021-10-27 11:13] LABS: ALBUMIN 3.4 GM/DL (3.2-5.2); BILIRUBIN,DIRECT 0.1 MG/DL (0.0-0.2); BILIRUBIN,TOTAL 0.6 MG/DL (0.2-1.0); CALCIUM LEVEL 10.3 MG/DL (8.8-10.2); CREATININE FOR GFR 1.12 MG/DL (0.55-1.30); GLOMERULAR FILTRATION RATE 48.9 (>32); TOTAL PROTEIN 8.1 GM/DL (6.4-8.2)
[2021-10-27 11:21] LABS: RSV AMPLIFICATION NEGATIVE (NEGATIVE)
[2021-10-27] MEDS ORDERED: MYRB25TA PO (11:42)
[2021-10-27] MEDS ORDERED: ALBU8.5H INH (11:43)
[2021-10-27] MEDS ORDERED: HOME MED LIST COMPLETE! XX SCH (11:45)
[2021-10-27] MEDS ORDERED: ISOVUE-370 76% 100ML VIAL As Ordered ONE (11:49)
[2021-10-27] MEDS ORDERED: NS 1,000 ML IV ONE (13:00)
[2021-10-27] MEDS ORDERED: LR 1,000 ML IV SCH (13:20)
[2021-10-27] MEDS: NS 1,000 ML IV SCH (14:20)
[2021-10-27] MEDS ORDERED: DEXTROSE 50% 50 ML SYRINGE IV PRN (16:25)
[2021-10-27] MEDS ORDERED: GLUCAGON INJ 1MG VIAL SC PRN (16:25)
[2021-10-27] MEDS ORDERED: GLUCOSE 4GM CHEW TABLET PO PRN (16:25)
[2021-10-27 17:40] VITALS: BP 148/70
[2021-10-27 18:30] LABS: HEMATOCRIT 33.8 % (36.0-47.0); HEMOGLOBIN 10.7 g/dl (12.0-15.5); MEAN CORPUSCULAR HEMOGLOBIN 26.7 pg (27.0-33.0); MEAN CORPUSCULAR HGB CONC 31.7 g/dl (32.0-36.5); MEAN CORPUSCULAR VOLUME 84.3 fl (80.0-96.0); PLATELET COUNT, AUTOMATED 343 10^3/uL (150-450); RED BLOOD COUNT 4.01 10^6/uL (4.00-5.40); WHITE BLOOD COUNT 14.4 10^3/uL (4.0-10.0)
[2021-10-27 21:40] VITALS: BP 142/67
[2021-10-28] MEDS: NS 1,000 ML IV SCH ×2 (00:58→12:22)
[2021-10-28] MEDS: PANTOPRAZOLE 40MG VIAL IV SCH ×3 (01:01→23:57)
[2021-10-28 01:31] LABS: HEMOGLOBIN 9.9 g/dl (12.0-15.5); MEAN CORPUSCULAR HEMOGLOBIN 26.5 pg (27.0-33.0); MEAN CORPUSCULAR HGB CONC 30.9 g/dl (32.0-36.5); MEAN CORPUSCULAR VOLUME 85.8 fl (80.0-96.0); PLATELET COUNT, AUTOMATED 334 10^3/uL (150-450); RED BLOOD COUNT 3.73 10^6/uL (4.00-5.40); WHITE BLOOD COUNT 13.4 10^3/uL (4.0-10.0)
[2021-10-28] MEDS ORDERED: diphenhydrAMINE 50MG/ML VIAL (J1200) IV ONE (01:35)
[2021-10-28 06:00] VITALS: BP 141/66
[2021-10-28 06:37] LABS: HEMATOCRIT 32.4 % (36.0-47.0); HEMOGLOBIN 9.9 g/dl (12.0-15.5); MEAN CORPUSCULAR HEMOGLOBIN 26.3 pg (27.0-33.0); MEAN CORPUSCULAR HGB CONC 30.6 g/dl (32.0-36.5); MEAN CORPUSCULAR VOLUME 86.2 fl (80.0-96.0); PLATELET COUNT, AUTOMATED 316 10^3/uL (150-450); RED BLOOD COUNT 3.76 10^6/uL (4.00-5.40); WHITE BLOOD COUNT 14.1 10^3/uL (4.0-10.0)
[2021-10-28 07:11] LABS: ALBUMIN 2.8 GM/DL (3.2-5.2); BILIRUBIN,TOTAL 0.6 MG/DL (0.2-1.0); CALCIUM LEVEL 8.7 MG/DL (8.8-10.2); CREATININE FOR GFR 1.25 MG/DL (0.55-1.30); GLOMERULAR FILTRATION RATE 43.1 (>32); MAGNESIUM LEVEL 1.7 MG/DL (1.8-2.4); TOTAL PROTEIN 6.5 GM/DL (6.4-8.2)
[2021-10-28 13:37] LABS: HEMATOCRIT 32.8 % (36.0-47.0); HEMOGLOBIN 10.1 g/dl (12.0-15.5); MEAN CORPUSCULAR HEMOGLOBIN 26.6 pg (27.0-33.0); MEAN CORPUSCULAR HGB CONC 30.8 g/dl (32.0-36.5); MEAN CORPUSCULAR VOLUME 86.5 fl (80.0-96.0); PLATELET COUNT, AUTOMATED 315 10^3/uL (150-450); RED BLOOD COUNT 3.79 10^6/uL (4.00-5.40); WHITE BLOOD COUNT 13.9 10^3/uL (4.0-10.0)
[2021-10-28 14:00] VITALS: BP 139/74
[2021-10-28] MEDS ORDERED: D5W/0.9% SODIUM CHLORIDE 1,000 ML IV SCH (14:55)
[2021-10-28 17:54] VITALS: BP 138/59
[2021-10-28 18:56] LABS: HEMATOCRIT 31.3 % (36.0-47.0); HEMOGLOBIN 9.7 g/dl (12.0-15.5); MEAN CORPUSCULAR HEMOGLOBIN 26.6 pg (27.0-33.0); PLATELET COUNT, AUTOMATED 302 10^3/uL (150-450); RED BLOOD COUNT 3.64 10^6/uL (4.00-5.40); WHITE BLOOD COUNT 14.8 10^3/uL (4.0-10.0)
[2021-10-28] MEDS: IPRATROPIUM 0.5MG/ALBUTEROL 2.5MG INH SOL UD 3ML (DUONEB) NEB SCH (19:37)
[2021-10-28] MEDS: ACETAMINOPHEN TAB 650MG DOSE (2X325MG) PO PRN (20:23)
[2021-10-28 22:00] VITALS: BP 136/81
[2021-10-28 23:27] LABS: HEMATOCRIT 30.5 % (36.0-47.0); HEMOGLOBIN 9.5 g/dl (12.0-15.5); MEAN CORPUSCULAR HEMOGLOBIN 26.7 pg (27.0-33.0); MEAN CORPUSCULAR HGB CONC 31.1 g/dl (32.0-36.5); MEAN CORPUSCULAR VOLUME 85.7 fl (80.0-96.0); PLATELET COUNT, AUTOMATED 297 10^3/uL (150-450); RED BLOOD COUNT 3.56 10^6/uL (4.00-5.40); WHITE BLOOD COUNT 14.8 10^3/uL (4.0-10.0)
[2021-10-29] MEDS ORDERED: DEXTROSE 50% 50 ML VIAL IV ONE (01:10)
[2021-10-29] MEDS ORDERED: DEXTROSE 50% 50 ML SYRINGE IV ONE (01:50)
[2021-10-29] MEDS ORDERED: ALBUTEROL SULFATE 2.5 MG/0.5 ML INH NEB SOLN NEB ONE ×2 (05:25→06:10)
[2021-10-29 06:00] VITALS: BP 116/91
[2021-10-29] MEDS: ACETAMINOPHEN TAB 650MG DOSE (2X325MG) PO PRN (06:08)
[2021-10-29] MEDS ORDERED: HYDROMORPHONE HCL 0.5 MG/ 0.5 ML SYRINGE (J1170 PER 1) IV ONE (06:10)
[2021-10-29 07:22] LABS: HEMATOCRIT 31.6 % (36.0-47.0); MEAN CORPUSCULAR HEMOGLOBIN 26.7 pg (27.0-33.0); MEAN CORPUSCULAR HGB CONC 31.6 g/dl (32.0-36.5); MEAN CORPUSCULAR VOLUME 84.3 fl (80.0-96.0); PLATELET COUNT, AUTOMATED 329 10^3/uL (150-450); RED BLOOD COUNT 3.75 10^6/uL (4.00-5.40)
[2021-10-29] MEDS: IPRATROPIUM 0.5MG/ALBUTEROL 2.5MG INH SOL UD 3ML (DUONEB) NEB SCH ×4 (07:46→19:47)
[2021-10-29 07:48] LABS: ALBUMIN 2.9 GM/DL (3.2-5.2); BILIRUBIN,TOTAL 0.7 MG/DL (0.2-1.0); CALCIUM LEVEL 9.1 MG/DL (8.8-10.2); CREATININE FOR GFR 1.2 MG/DL (0.55-1.30); GLOMERULAR FILTRATION RATE 45.1 (>32); MAGNESIUM LEVEL 1.5 MG/DL (1.8-2.4); POTASSIUM SERUM 3.9 MEQ/L (3.5-5.1); TOTAL PROTEIN 6.9 GM/DL (6.4-8.2)
[2021-10-29] MEDS: D5W/0.9% SODIUM CHLORIDE 1,000 ML IV SCH ×2 (08:33→20:53)
[2021-10-29 10:00] VITALS: BP 133/74
[2021-10-29] MEDS: PANTOPRAZOLE 40MG VIAL IV SCH (11:40)
[2021-10-29 12:29] LABS: HEMATOCRIT 30.3 % (36.0-47.0); HEMOGLOBIN 9.5 g/dl (12.0-15.5); MEAN CORPUSCULAR HEMOGLOBIN 26.5 pg (27.0-33.0); MEAN CORPUSCULAR HGB CONC 31.4 g/dl (32.0-36.5); MEAN CORPUSCULAR VOLUME 84.4 fl (80.0-96.0); PLATELET COUNT, AUTOMATED 313 10^3/uL (150-450); RED BLOOD COUNT 3.59 10^6/uL (4.00-5.40); WHITE BLOOD COUNT 15.7 10^3/uL (4.0-10.0)
[2021-10-29 14:00] VITALS: BP 147/61
[2021-10-29 18:00] VITALS: BP 138/77
[2021-10-29 22:00] VITALS: BP 147/58
[2021-10-30] VITALS (7 sets, daily range): BP systolic 127–146; BP diastolic 52–69; O2SAT 93
[2021-10-30] MEDS: PANTOPRAZOLE 40MG VIAL IV SCH ×2 (00:57→12:42)
[2021-10-30 07:12] LABS: ALBUMIN 2.5 GM/DL (3.2-5.2); BILIRUBIN,TOTAL 0.5 MG/DL (0.2-1.0); CALCIUM LEVEL 8.2 MG/DL (8.8-10.2); CREATININE FOR GFR 1.14 MG/DL (0.55-1.30); GLOMERULAR FILTRATION RATE 47.9 (>32); MAGNESIUM LEVEL 1.5 MG/DL (1.8-2.4); POTASSIUM SERUM 3.1 MEQ/L (3.5-5.1); TOTAL PROTEIN 6.8 GM/DL (6.4-8.2)
[2021-10-30] MEDS: IPRATROPIUM 0.5MG/ALBUTEROL 2.5MG INH SOL UD 3ML (DUONEB) NEB SCH ×4 (07:41→20:00)
[2021-10-30] MEDS ORDERED: POTASSIUM CHLORIDE 10MEQ SR TABLET PO ONE (08:50)
[2021-10-30] MEDS ORDERED: MAGNESIUM OXIDE 400MG TAB (MAG-OX) PO ONE (08:50)
[2021-10-30 09:16] LABS: HEMATOCRIT 29.3 % (36.0-47.0); HEMOGLOBIN 9.3 g/dl (12.0-15.5); MEAN CORPUSCULAR HEMOGLOBIN 26.6 pg (27.0-33.0); MEAN CORPUSCULAR HGB CONC 31.7 g/dl (32.0-36.5); MEAN CORPUSCULAR VOLUME 83.7 fl (80.0-96.0); PLATELET COUNT, AUTOMATED 286 10^3/uL (150-450); WHITE BLOOD COUNT 12.1 10^3/uL (4.0-10.0)
[2021-10-30] MEDS: methylPREDNISolone 40MG 1ML VIAL IV SCH ×2 (09:48→21:17)
[2021-10-30] MEDS ORDERED: PIPERACILLIN/TAZOBACTAM SOD 3.375 GM in D5W MINI-BAG PLUS 50 ML IV SCH (12:00)
[2021-10-30] MEDS: HEPARIN SOD (PORCINE) 5000UNITS/ML 1ML VIAL/SYRINGE SQ SCH ×2 (14:54→21:17)
[2021-10-30] MEDS: PIPERACILLIN/TAZOBACTAM SOD 2.25 GM in D5W MINI-BAG PLUS 50 ML IV SCH (18:05)
[2021-10-30] MEDS: HumaLOG INSULIN (NovoLOG) PER UNIT SC SCH (21:18)
[2021-10-30] MEDS: ACETAMINOPHEN TAB 650MG DOSE (2X325MG) PO PRN (21:18)
[2021-10-31] MEDS: HEPARIN SOD (PORCINE) 5000UNITS/ML 1ML VIAL/SYRINGE SQ SCH ×3 (05:49→20:56)
[2021-10-31] MEDS: PIPERACILLIN/TAZOBACTAM SOD 2.25 GM in D5W MINI-BAG PLUS 50 ML IV SCH ×6 (05:49→23:21)
[2021-10-31 05:50] LABS: HEMATOCRIT 28.5 % (36.0-47.0); HEMOGLOBIN 9.1 g/dl (12.0-15.5); MEAN CORPUSCULAR HEMOGLOBIN 26.4 pg (27.0-33.0); MEAN CORPUSCULAR HGB CONC 31.9 g/dl (32.0-36.5); MEAN CORPUSCULAR VOLUME 82.6 fl (80.0-96.0); PLATELET COUNT, AUTOMATED 295 10^3/uL (150-450); RED BLOOD COUNT 3.45 10^6/uL (4.00-5.40); WHITE BLOOD COUNT 8.7 10^3/uL (4.0-10.0)
[2021-10-31 06:13] VITALS: BP 129/62
[2021-10-31 06:30] LABS: ALBUMIN 2.6 GM/DL (3.2-5.2); BILIRUBIN,TOTAL 0.4 MG/DL (0.2-1.0); CALCIUM LEVEL 8.8 MG/DL (8.8-10.2); CREATININE FOR GFR 1.26 MG/DL (0.55-1.30); GLOMERULAR FILTRATION RATE 42.7 (>32); MAGNESIUM LEVEL 1.6 MG/DL (1.8-2.4); POTASSIUM SERUM 3.9 MEQ/L (3.5-5.1)
[2021-10-31 07:36] LABS: HEMOGLOBIN A1c 6.8 %
[2021-10-31 07:40] VITALS: BP 129/61
[2021-10-31] MEDS: IPRATROPIUM 0.5MG/ALBUTEROL 2.5MG INH SOL UD 3ML (DUONEB) NEB SCH ×4 (07:59→18:54)
[2021-10-31 08:00] VITALS: BP 132/61
[2021-10-31] MEDS: MAG SULF 1GM/100ML (MAG RUN) 1 GM in IV 1 EA IV SCH (09:08)
[2021-10-31] MEDS: HumaLOG INSULIN (NovoLOG) PER UNIT SC SCH ×4 (09:08→20:58)
[2021-10-31] MEDS: methylPREDNISolone 40MG 1ML VIAL IV SCH ×2 (09:08→20:56)
[2021-10-31] MEDS: PANTOPRAZOLE 40MG VIAL IV SCH ×2 (12:25)
[2021-10-31 13:30] VITALS: BP 117/58
[2021-10-31] MEDS ORDERED: FUROSEMIDE 40MG/4ML VIAL (J1940) IV ONE (13:30)
[2021-10-31] MEDS: BUDESONIDE 0.5 MG/2 ML INHALATION SUSPENSION INH SCH (18:54)
[2021-10-31] MEDS: PANTOPRAZOLE 40MG TAB (PROTONIX) PO SCH (20:55)
[2021-10-31] MEDS: ACETAMINOPHEN TAB 650MG DOSE (2X325MG) PO PRN (20:55)
[2021-10-31 21:00] VITALS: O2SAT 93
[2021-10-31] MEDS ORDERED: PHENAZOPYRIDINE 100 MG TAB PO ONE (21:00)
[2021-10-31 22:00] VITALS: BP 115/65
[2021-11-01 02:00] VITALS: BP 104/80
[2021-11-01 06:00] VITALS: BP 129/67
[2021-11-01] MEDS: HEPARIN SOD (PORCINE) 5000UNITS/ML 1ML VIAL/SYRINGE SQ SCH ×3 (06:18→21:57)
[2021-11-01] MEDS: PIPERACILLIN/TAZOBACTAM SOD 2.25 GM in D5W MINI-BAG PLUS 50 ML IV SCH ×3 (06:18→17:14)
[2021-11-01 07:09] LABS: HEMATOCRIT 28.7 % (36.0-47.0); HEMOGLOBIN 9.1 g/dl (12.0-15.5); MEAN CORPUSCULAR HEMOGLOBIN 26.5 pg (27.0-33.0); MEAN CORPUSCULAR HGB CONC 31.7 g/dl (32.0-36.5); MEAN CORPUSCULAR VOLUME 83.4 fl (80.0-96.0); PLATELET COUNT, AUTOMATED 332 10^3/uL (150-450); RED BLOOD COUNT 3.44 10^6/uL (4.00-5.40); WHITE BLOOD COUNT 10.6 10^3/uL (4.0-10.0)
[2021-11-01] MEDS: BUDESONIDE 0.5 MG/2 ML INHALATION SUSPENSION INH SCH ×2 (07:26→20:06)
[2021-11-01] MEDS: IPRATROPIUM 0.5MG/ALBUTEROL 2.5MG INH SOL UD 3ML (DUONEB) NEB SCH ×4 (07:27→20:06)
[2021-11-01 07:34] LABS: ALBUMIN 2.7 GM/DL (3.2-5.2); BILIRUBIN,TOTAL 0.2 MG/DL (0.2-1.0); CALCIUM LEVEL 9.4 MG/DL (8.8-10.2); CREATININE FOR GFR 1.59 MG/DL (0.55-1.30); GLOMERULAR FILTRATION RATE 32.6 (>32); MAGNESIUM LEVEL 2.1 MG/DL (1.8-2.4); POTASSIUM SERUM 4.4 MEQ/L (3.5-5.1); TOTAL PROTEIN 6.7 GM/DL (6.4-8.2)
[2021-11-01] MEDS: PANTOPRAZOLE 40MG TAB (PROTONIX) PO SCH ×2 (08:32→21:57)
[2021-11-01] MEDS: methylPREDNISolone 40MG 1ML VIAL IV SCH (08:32)
[2021-11-01] MEDS: HumaLOG INSULIN (NovoLOG) PER UNIT SC SCH ×4 (08:33→21:00)
[2021-11-01 09:00] VITALS: O2SAT 95
[2021-11-01 09:41] LABS: DRVV SCREEN 39.1 SEC
[2021-11-01 14:00] VITALS: BP 120/58
[2021-11-01 22:00] VITALS: BP 120/60
[2021-11-02] MEDS: PIPERACILLIN/TAZOBACTAM SOD 2.25 GM in D5W MINI-BAG PLUS 50 ML IV SCH ×4 (00:37→18:38)
[2021-11-02] MEDS: HEPARIN SOD (PORCINE) 5000UNITS/ML 1ML VIAL/SYRINGE SQ SCH ×3 (05:40→21:23)
[2021-11-02 05:48] LABS: HEMATOCRIT 27.6 % (36.0-47.0); HEMOGLOBIN 8.8 g/dl (12.0-15.5); MEAN CORPUSCULAR HEMOGLOBIN 26.6 pg (27.0-33.0); MEAN CORPUSCULAR HGB CONC 31.9 g/dl (32.0-36.5); MEAN CORPUSCULAR VOLUME 83.4 fl (80.0-96.0); PLATELET COUNT, AUTOMATED 334 10^3/uL (150-450); RED BLOOD COUNT 3.31 10^6/uL (4.00-5.40); WHITE BLOOD COUNT 10.1 10^3/uL (4.0-10.0)
[2021-11-02 06:22] LABS: ALBUMIN 2.7 GM/DL (3.2-5.2); BILIRUBIN,TOTAL 0.2 MG/DL (0.2-1.0); CREATININE FOR GFR 1.72 MG/DL (0.55-1.30); GLOMERULAR FILTRATION RATE 29.8 (>32); MAGNESIUM LEVEL 1.9 MG/DL (1.8-2.4); POTASSIUM SERUM 4.6 MEQ/L (3.5-5.1); TOTAL PROTEIN 6.6 GM/DL (6.4-8.2)
[2021-11-02 06:26] VITALS: BP 123/67
[2021-11-02] MEDS: BUDESONIDE 0.5 MG/2 ML INHALATION SUSPENSION INH SCH ×2 (07:14→19:42)
[2021-11-02] MEDS: IPRATROPIUM 0.5MG/ALBUTEROL 2.5MG INH SOL UD 3ML (DUONEB) NEB SCH ×4 (07:14→19:42)
[2021-11-02] MEDS ORDERED: NS 500 ML IV ONE (07:45)
[2021-11-02] MEDS: ACETAMINOPHEN TAB 650MG DOSE (2X325MG) PO PRN ×2 (08:05→21:22)
[2021-11-02] MEDS: PANTOPRAZOLE 40MG TAB (PROTONIX) PO SCH ×2 (08:05→21:23)
[2021-11-02] MEDS: HumaLOG INSULIN (NovoLOG) PER UNIT SC SCH ×4 (08:06→20:36)
[2021-11-02] MEDS: predniSONE 20 MG TAB PO SCH (08:06)
[2021-11-02 14:52] VITALS: BP 128/60
[2021-11-02 20:30] VITALS: BP_SYST 118; BP_SYST 18; BP_DIAS 62
[2021-11-03] MEDS: PIPERACILLIN/TAZOBACTAM SOD 2.25 GM in D5W MINI-BAG PLUS 50 ML IV SCH ×5 (00:17→23:57)
[2021-11-03] MEDS: HEPARIN SOD (PORCINE) 5000UNITS/ML 1ML VIAL/SYRINGE SQ SCH ×3 (05:29→21:01)
[2021-11-03] MEDS: IPRATROPIUM 0.5MG/ALBUTEROL 2.5MG INH SOL UD 3ML (DUONEB) NEB SCH (07:25)
[2021-11-03] MEDS: BUDESONIDE 0.5 MG/2 ML INHALATION SUSPENSION INH SCH (07:25)
[2021-11-03 08:38] LABS: HEMATOCRIT 30.2 % (36.0-47.0); HEMOGLOBIN 9.4 g/dl (12.0-15.5); MEAN CORPUSCULAR HEMOGLOBIN 26.3 pg (27.0-33.0); MEAN CORPUSCULAR HGB CONC 31.1 g/dl (32.0-36.5); MEAN CORPUSCULAR VOLUME 84.6 fl (80.0-96.0); PLATELET COUNT, AUTOMATED 370 10^3/uL (150-450); RED BLOOD COUNT 3.57 10^6/uL (4.00-5.40)
[2021-11-03 09:06] LABS: ALBUMIN 2.9 GM/DL (3.2-5.2); BILIRUBIN,TOTAL 0.3 MG/DL (0.2-1.0); CALCIUM LEVEL 9.4 MG/DL (8.8-10.2); CREATININE FOR GFR 1.51 MG/DL (0.55-1.30); GLOMERULAR FILTRATION RATE 34.6 (>32); MAGNESIUM LEVEL 1.7 MG/DL (1.8-2.4); POTASSIUM SERUM 4.2 MEQ/L (3.5-5.1); TOTAL PROTEIN 6.8 GM/DL (6.4-8.2)
[2021-11-03] MEDS: predniSONE 20 MG TAB PO SCH (09:25)
[2021-11-03] MEDS: PANTOPRAZOLE 40MG TAB (PROTONIX) PO SCH ×2 (09:25→21:00)
[2021-11-03] MEDS: HumaLOG INSULIN (NovoLOG) PER UNIT SC SCH ×4 (09:26→21:00)
[2021-11-03] MEDS ORDERED: IPRATROPIUM 0.5MG/ALBUTEROL 2.5MG INH SOL UD 3ML (DUONEB) NEB PRN (10:15)
[2021-11-03] MEDS ORDERED: MAG SULF 1GM/100ML (MAG RUN) 1 GM in IV 1 EA IV ONE (10:20)
[2021-11-03] MEDS: MAGNESIUM OXIDE 400MG TAB (MAG-OX) PO SCH ×2 (10:37→21:00)
[2021-11-03 14:00] VITALS: BP 128/61
[2021-11-03] MEDS: ADVAIR HFA 230/21MCG INHALER INH SCH (20:01)
[2021-11-03 20:29] VITALS: BP 128/76
[2021-11-03] MEDS: ACETAMINOPHEN TAB 650MG DOSE (2X325MG) PO PRN (23:57)
[2021-11-04] MEDS ORDERED: PHENAZOPYRIDINE 100 MG TAB PO ONE (03:00)
[2021-11-04] MEDS: PIPERACILLIN/TAZOBACTAM SOD 2.25 GM in D5W MINI-BAG PLUS 50 ML IV SCH (05:54)
[2021-11-04] MEDS: HEPARIN SOD (PORCINE) 5000UNITS/ML 1ML VIAL/SYRINGE SQ SCH ×3 (05:54→20:34)
[2021-11-04 05:55] VITALS: BP 132/62
[2021-11-04 06:59] LABS: HEMATOCRIT 28.1 % (36.0-47.0); HEMOGLOBIN 8.9 g/dl (12.0-15.5); MEAN CORPUSCULAR HEMOGLOBIN 26.1 pg (27.0-33.0); MEAN CORPUSCULAR HGB CONC 31.7 g/dl (32.0-36.5); MEAN CORPUSCULAR VOLUME 82.4 fl (80.0-96.0); PLATELET COUNT, AUTOMATED 352 10^3/uL (150-450); RED BLOOD COUNT 3.41 10^6/uL (4.00-5.40); WHITE BLOOD COUNT 10.9 10^3/uL (4.0-10.0)
[2021-11-04 07:28] LABS: CALCIUM LEVEL 9.3 MG/DL (8.8-10.2); CREATININE FOR GFR 1.4 MG/DL (0.55-1.30); GLOMERULAR FILTRATION RATE 37.8 (>32)
[2021-11-04] MEDS: ADVAIR HFA 230/21MCG INHALER INH SCH ×2 (07:30→19:39)
[2021-11-04] MEDS: MAGNESIUM OXIDE 400MG TAB (MAG-OX) PO SCH ×2 (08:22→20:31)
[2021-11-04] MEDS: PANTOPRAZOLE 40MG TAB (PROTONIX) PO SCH ×2 (08:22→20:31)
[2021-11-04] MEDS: HumaLOG INSULIN (NovoLOG) PER UNIT SC SCH ×4 (08:23→20:35)
[2021-11-04 14:00] VITALS: BP 144/67
[2021-11-04 22:00] VITALS: BP 134/62
[2021-11-05] MEDS: HEPARIN SOD (PORCINE) 5000UNITS/ML 1ML VIAL/SYRINGE SQ SCH ×3 (05:19→21:04)
[2021-11-05 06:00] VITALS: BP 136/72
[2021-11-05 06:33] LABS: HEMATOCRIT 31.2 % (36.0-47.0); HEMOGLOBIN 9.8 g/dl (12.0-15.5); MEAN CORPUSCULAR HGB CONC 31.4 g/dl (32.0-36.5); MEAN CORPUSCULAR VOLUME 82.8 fl (80.0-96.0); PLATELET COUNT, AUTOMATED 411 10^3/uL (150-450); RED BLOOD COUNT 3.77 10^6/uL (4.00-5.40); WHITE BLOOD COUNT 12.4 10^3/uL (4.0-10.0)
[2021-11-05] MEDS: ADVAIR HFA 230/21MCG INHALER INH SCH ×2 (07:20→20:25)
[2021-11-05] MEDS: HumaLOG INSULIN (NovoLOG) PER UNIT SC SCH ×4 (07:30→21:00)
[2021-11-05] MEDS: MAGNESIUM OXIDE 400MG TAB (MAG-OX) PO SCH ×2 (09:23→21:04)
[2021-11-05] MEDS: PANTOPRAZOLE 40MG TAB (PROTONIX) PO SCH ×2 (09:24→21:04)
[2021-11-05 14:00] VITALS: BP 135/58
[2021-11-05 22:30] VITALS: BP 138/58
[2021-11-06] MEDS: HEPARIN SOD (PORCINE) 5000UNITS/ML 1ML VIAL/SYRINGE SQ SCH ×3 (05:29→21:35)
[2021-11-06 06:00] VITALS: BP 129/83
[2021-11-06 06:36] LABS: HEMATOCRIT 33.5 % (36.0-47.0); HEMOGLOBIN 10.4 g/dl (12.0-15.5); MEAN CORPUSCULAR HEMOGLOBIN 25.9 pg (27.0-33.0); MEAN CORPUSCULAR VOLUME 83.5 fl (80.0-96.0); PLATELET COUNT, AUTOMATED 433 10^3/uL (150-450); RED BLOOD COUNT 4.01 10^6/uL (4.00-5.40); WHITE BLOOD COUNT 13.8 10^3/uL (4.0-10.0)
[2021-11-06 07:03] LABS: CALCIUM LEVEL 9.6 MG/DL (8.8-10.2); CREATININE FOR GFR 1.49 MG/DL (0.55-1.30); GLOMERULAR FILTRATION RATE 35.2 (>32); POTASSIUM SERUM 4.7 MEQ/L (3.5-5.1)
[2021-11-06] MEDS: ADVAIR HFA 230/21MCG INHALER INH SCH ×2 (07:24→19:56)
[2021-11-06] MEDS: HumaLOG INSULIN (NovoLOG) PER UNIT SC SCH ×4 (07:54→21:00)
[2021-11-06] MEDS: PANTOPRAZOLE 40MG TAB (PROTONIX) PO SCH ×2 (07:55→21:34)
[2021-11-06] MEDS: MAGNESIUM OXIDE 400MG TAB (MAG-OX) PO SCH ×2 (07:55→21:34)
[2021-11-06 09:07] LABS: MAGNESIUM LEVEL 1.8 MG/DL (1.8-2.4)
[2021-11-06 18:08] LABS: HOMOCYST(E)INE SERUM 12.4 umol/L (0.0-21.3); PROTEIN C RESISTANCE ACTIVATED 2.5 ratio (2.2-3.5)
[2021-11-06] MEDS: ACETAMINOPHEN TAB 650MG DOSE (2X325MG) PO PRN (21:35)
[2021-11-06] MEDS ORDERED: ANALGESIC BALM CRM 3OZ TOP PRN (22:15)
[2021-11-07] MEDS ORDERED: MAALOX 30 ML SUSP *UDC PO PRN (01:10)
[2021-11-07] MEDS ORDERED: ONDANSETRON 4MG ORAL DISINTEGRATING TAB PO PRN (01:10)
[2021-11-07] MEDS: HEPARIN SOD (PORCINE) 5000UNITS/ML 1ML VIAL/SYRINGE SQ SCH ×3 (06:22→22:00)
[2021-11-07] MEDS: ADVAIR HFA 230/21MCG INHALER INH SCH ×2 (07:28→19:53)
[2021-11-07 07:35] VITALS: BP 145/66
[2021-11-07] MEDS: HumaLOG INSULIN (NovoLOG) PER UNIT SC SCH ×4 (08:25→21:00)
[2021-11-07] MEDS: MAGNESIUM OXIDE 400MG TAB (MAG-OX) PO SCH ×2 (08:25→22:01)
[2021-11-07] MEDS: PANTOPRAZOLE 40MG TAB (PROTONIX) PO SCH ×2 (08:25→22:01)
[2021-11-07] MEDS: NYSTATIN 100,000 UNITS/GM TOPICAL PWD 15 GM TOP SCH ×2 (11:05→22:01)
[2021-11-08 06:00] VITALS: BP 145/66
[2021-11-08] MEDS: HEPARIN SOD (PORCINE) 5000UNITS/ML 1ML VIAL/SYRINGE SQ SCH ×3 (06:53→20:45)
[2021-11-08] MEDS: ADVAIR HFA 230/21MCG INHALER INH SCH ×2 (07:59→20:06)
[2021-11-08] MEDS: MAGNESIUM OXIDE 400MG TAB (MAG-OX) PO SCH ×2 (08:50→20:45)
[2021-11-08] MEDS: NYSTATIN 100,000 UNITS/GM TOPICAL PWD 15 GM TOP SCH ×2 (08:50→20:46)
[2021-11-08] MEDS: PANTOPRAZOLE 40MG TAB (PROTONIX) PO SCH ×2 (08:50→20:45)
[2021-11-08] MEDS: HumaLOG INSULIN (NovoLOG) PER UNIT SC SCH ×4 (08:51→20:46)
[2021-11-09] MEDS: hydrOXYzine 10 MG TAB PO PRN ×2 (01:31→08:50)
[2021-11-09] MEDS: HEPARIN SOD (PORCINE) 5000UNITS/ML 1ML VIAL/SYRINGE SQ SCH ×3 (05:26→21:00)
[2021-11-09] MEDS: ACETAMINOPHEN TAB 650MG DOSE (2X325MG) PO PRN ×2 (05:28→08:50)
[2021-11-09 06:00] VITALS: BP 138/55
[2021-11-09 06:06] LABS: HEMOGLOBIN 9.9 g/dl (12.0-15.5); MEAN CORPUSCULAR HEMOGLOBIN 26.6 pg (27.0-33.0); MEAN CORPUSCULAR HGB CONC 31.9 g/dl (32.0-36.5); MEAN CORPUSCULAR VOLUME 83.3 fl (80.0-96.0); PLATELET COUNT, AUTOMATED 394 10^3/uL (150-450); RED BLOOD COUNT 3.72 10^6/uL (4.00-5.40); WHITE BLOOD COUNT 14.5 10^3/uL (4.0-10.0)
[2021-11-09 06:38] LABS: CALCIUM LEVEL 9.6 MG/DL (8.8-10.2); CREATININE FOR GFR 1.43 MG/DL (0.55-1.30); GLOMERULAR FILTRATION RATE 36.9 (>32); POTASSIUM SERUM 4.6 MEQ/L (3.5-5.1)
[2021-11-09] MEDS: ADVAIR HFA 230/21MCG INHALER INH SCH ×2 (07:45→20:07)
[2021-11-09] MEDS: NYSTATIN 100,000 UNITS/GM TOPICAL PWD 15 GM TOP SCH ×2 (08:10→20:36)
[2021-11-09] MEDS: HumaLOG INSULIN (NovoLOG) PER UNIT SC SCH ×4 (08:10→20:36)
[2021-11-09] MEDS: PANTOPRAZOLE 40MG TAB (PROTONIX) PO SCH ×2 (08:10→20:32)
[2021-11-09] MEDS: MAGNESIUM OXIDE 400MG TAB (MAG-OX) PO SCH ×2 (08:10→20:32)
[2021-11-09] MEDS: oxyBUTYnin 5 MG TAB PO SCH ×2 (17:23→20:32)
[2021-11-09] MEDS: diphenhydrAMINE 25MG CAP PO SCH (20:32)
[2021-11-10 04:00] VITALS: BP 141/75
[2021-11-10] MEDS: HEPARIN SOD (PORCINE) 5000UNITS/ML 1ML VIAL/SYRINGE SQ SCH ×3 (05:36→21:05)
[2021-11-10] MEDS: ADVAIR HFA 230/21MCG INHALER INH SCH ×2 (07:18→19:53)
[2021-11-10] MEDS: MAGNESIUM OXIDE 400MG TAB (MAG-OX) PO SCH ×2 (08:03→21:05)
[2021-11-10] MEDS: HumaLOG INSULIN (NovoLOG) PER UNIT SC SCH ×4 (08:03→21:00)
[2021-11-10] MEDS: oxyBUTYnin 5 MG TAB PO SCH ×3 (08:03→21:05)
[2021-11-10] MEDS: PANTOPRAZOLE 40MG TAB (PROTONIX) PO SCH ×2 (08:03→21:05)
[2021-11-10] MEDS: NYSTATIN 100,000 UNITS/GM TOPICAL PWD 15 GM TOP SCH ×2 (08:04→21:06)
[2021-11-10] MEDS: diphenhydrAMINE 25MG CAP PO SCH (21:05)
[2021-11-10] MEDS: ACETAMINOPHEN TAB 650MG DOSE (2X325MG) PO PRN (23:23)
[2021-11-10] MEDS: hydrOXYzine 10 MG TAB PO PRN (23:23)
[2021-11-11 06:00] VITALS: BP 139/61
[2021-11-11] MEDS: HEPARIN SOD (PORCINE) 5000UNITS/ML 1ML VIAL/SYRINGE SQ SCH ×3 (06:03→20:43)
[2021-11-11] MEDS: ADVAIR HFA 230/21MCG INHALER INH SCH ×2 (07:28→20:20)
[2021-11-11] MEDS: PANTOPRAZOLE 40MG TAB (PROTONIX) PO SCH ×2 (09:16→20:43)
[2021-11-11] MEDS: HumaLOG INSULIN (NovoLOG) PER UNIT SC SCH ×4 (09:16→20:06)
[2021-11-11] MEDS: oxyBUTYnin 5 MG TAB PO SCH ×3 (09:16→20:44)
[2021-11-11] MEDS: MAGNESIUM OXIDE 400MG TAB (MAG-OX) PO SCH ×2 (09:16→20:43)
[2021-11-11] MEDS: NYSTATIN 100,000 UNITS/GM TOPICAL PWD 15 GM TOP SCH ×2 (09:16→20:43)
[2021-11-11] MEDS: diphenhydrAMINE 25MG CAP PO SCH (20:43)
[2021-11-12] MEDS: HEPARIN SOD (PORCINE) 5000UNITS/ML 1ML VIAL/SYRINGE SQ SCH ×3 (04:57→20:37)
[2021-11-12 06:00] VITALS: BP 141/53
[2021-11-12 06:13] LABS: APPEARANCE, URINE CLEAR (CLEAR); BACTERIA, URINE AUTO NEGATIVE (NEGATIVE); BILIRUBIN, URINE AUTO NEGATIVE (NEGATIVE); BLOOD, URINE BLOOD NEGATIVE (NEGATIVE); COLOR, URINE STRAW (YELLOW); GLUCOSE, URINE (UA) AUTO NEGATIVE (NEGATIVE); KETONE, URINE AUTO NEGATIVE (NEGATIVE); LEUKOCYTE ESTERASE, URINE AUTO NEGATIVE (NEGATIVE); NITRITE, URINE AUTO NEGATIVE (NEGATIVE); PROTEIN, URINE AUTO NEGATIVE (NEGATIVE); RBC, URINE AUTO 0 /HPF (0-3); SPECIFIC GRAVITY URINE AUTO 1.004 (1.002-1.035); SQUAMOUS EPITHELIAL CELL UR AU 0 /HPF (0-6); UROBILINOGEN, URINE AUTO 0.2 mg/dL (0.0-2.0); WBC, URINE AUTO 1 /HPF (0-3)
[2021-11-12] MEDS: ADVAIR HFA 230/21MCG INHALER INH SCH ×2 (07:37→20:15)
[2021-11-12] MEDS: oxyBUTYnin 5 MG TAB PO SCH ×3 (08:14→20:37)
[2021-11-12] MEDS: MAGNESIUM OXIDE 400MG TAB (MAG-OX) PO SCH ×2 (08:15→20:37)
[2021-11-12] MEDS: PANTOPRAZOLE 40MG TAB (PROTONIX) PO SCH ×2 (08:15→20:37)
[2021-11-12] MEDS: NYSTATIN 100,000 UNITS/GM TOPICAL PWD 15 GM TOP SCH ×2 (08:15→20:37)
[2021-11-12] MEDS: HumaLOG INSULIN (NovoLOG) PER UNIT SC SCH ×4 (09:58→19:55)
[2021-11-12] MEDS: diphenhydrAMINE 25MG CAP PO SCH (20:36)
[2021-11-13 06:00] VITALS: BP 143/55
[2021-11-13] MEDS: HEPARIN SOD (PORCINE) 5000UNITS/ML 1ML VIAL/SYRINGE SQ SCH ×2 (06:22→20:09)
[2021-11-13 06:56] LABS: HEMATOCRIT 36.3 % (36.0-47.0); HEMOGLOBIN 11.3 g/dl (12.0-15.5); MEAN CORPUSCULAR HEMOGLOBIN 26.5 pg (27.0-33.0); MEAN CORPUSCULAR HGB CONC 31.1 g/dl (32.0-36.5); MEAN CORPUSCULAR VOLUME 85.2 fl (80.0-96.0); PLATELET COUNT, AUTOMATED 451 10^3/uL (150-450); RED BLOOD COUNT 4.26 10^6/uL (4.00-5.40); WHITE BLOOD COUNT 16.3 10^3/uL (4.0-10.0)
[2021-11-13 07:16] LABS: CALCIUM LEVEL 10.6 MG/DL (8.8-10.2); CREATININE FOR GFR 1.63 MG/DL (0.55-1.30); GLOMERULAR FILTRATION RATE 31.7 (>32); POTASSIUM SERUM 4.5 MEQ/L (3.5-5.1)
[2021-11-13] MEDS: ADVAIR HFA 230/21MCG INHALER INH SCH ×2 (07:47→19:27)
[2021-11-13] MEDS: oxyBUTYnin 5 MG TAB PO SCH (08:44)
[2021-11-13] MEDS: PANTOPRAZOLE 40MG TAB (PROTONIX) PO SCH ×2 (08:44→20:09)
[2021-11-13] MEDS: HumaLOG INSULIN (NovoLOG) PER UNIT SC SCH ×4 (08:45→20:05)
[2021-11-13] MEDS: NYSTATIN 100,000 UNITS/GM TOPICAL PWD 15 GM TOP SCH ×2 (08:45→20:10)
[2021-11-13] MEDS: MAGNESIUM OXIDE 400MG TAB (MAG-OX) PO SCH ×2 (08:45→20:09)
[2021-11-13] MEDS: hydrOXYzine 10 MG TAB PO PRN (20:09)
[2021-11-13] MEDS: diphenhydrAMINE 25MG CAP PO SCH (20:09)
[2021-11-13] MEDS: TAMSULOSIN 0.4 MG CAP PO SCH (20:09)
[2021-11-13] MEDS: ACETAMINOPHEN TAB 650MG DOSE (2X325MG) PO PRN (20:10)
[2021-11-14] MEDS: SENOKOT S TAB PO SCH ×3 (00:38→20:00)
[2021-11-14 04:56] VITALS: BP 141/72
[2021-11-14 06:55] LABS: BASO # 0.1 10^3/uL (0.0-0.2); BASO % 0.9 % (0.0-1.0); EOS # 0.5 10^3/uL (0.0-0.5); HEMATOCRIT 33.9 % (36.0-47.0); LYMPH # 1.6 10^3/uL (1.5-5.0); LYMPH % 10.1 % (24.0-44.0); MEAN CORPUSCULAR HEMOGLOBIN 27.1 pg (27.0-33.0); MEAN CORPUSCULAR HGB CONC 32.4 g/dl (32.0-36.5); MEAN CORPUSCULAR VOLUME 83.5 fl (80.0-96.0); MONO # 0.8 10^3/uL (0.0-0.8); MONO % 5.1 % (2.0-8.0); NEUTROPHILS # 12.2 10^3/uL (1.5-8.5); NEUTROPHILS % 79.3 % (36.0-66.0); PLATELET COUNT, AUTOMATED 411 10^3/uL (150-450); RED BLOOD COUNT 4.06 10^6/uL (4.00-5.40); WHITE BLOOD COUNT 15.4 10^3/uL (4.0-10.0)
[2021-11-14 07:13] LABS: C REACTIVE PROTEIN QUANTITATIV 3.05 MG/DL (0.00-0.30); CALCIUM LEVEL 10.3 MG/DL (8.8-10.2); CREATININE FOR GFR 1.7 MG/DL (0.55-1.30); GLOMERULAR FILTRATION RATE 30.2 (>32); POTASSIUM SERUM 4.5 MEQ/L (3.5-5.1)
[2021-11-14 07:49] LABS: ERYTHROCYTE SEDIMENTATION RATE 64 mm/hr (0-30)
[2021-11-14] MEDS: ADVAIR HFA 230/21MCG INHALER INH SCH ×2 (08:12→19:22)
[2021-11-14] MEDS: HumaLOG INSULIN (NovoLOG) PER UNIT SC SCH ×4 (08:54→21:00)
[2021-11-14] MEDS: HEPARIN SOD (PORCINE) 5000UNITS/ML 1ML VIAL/SYRINGE SQ SCH ×2 (09:29→20:00)
[2021-11-14] MEDS: PANTOPRAZOLE 40MG TAB (PROTONIX) PO SCH ×2 (09:30→19:59)
[2021-11-14] MEDS: MAGNESIUM OXIDE 400MG TAB (MAG-OX) PO SCH ×2 (09:31→19:59)
[2021-11-14] MEDS: BISACODYL 10 MG SUPP PR SCH (09:31)
[2021-11-14] MEDS: NYSTATIN 100,000 UNITS/GM TOPICAL PWD 15 GM TOP SCH ×2 (09:32→20:00)
[2021-11-14] MEDS: ACETAMINOPHEN TAB 650MG DOSE (2X325MG) PO PRN (19:59)
[2021-11-14] MEDS: hydrOXYzine 10 MG TAB PO PRN (19:59)
[2021-11-14] MEDS: diphenhydrAMINE 25MG CAP PO SCH (19:59)
[2021-11-14] MEDS: TAMSULOSIN 0.4 MG CAP PO SCH (19:59)
[2021-11-14] MEDS ORDERED: GABAPENTIN 100 MG CAP PO ONE (23:40)
[2021-11-15] MEDS: ACETAMINOPHEN TAB 650MG DOSE (2X325MG) PO PRN (00:08)
[2021-11-15 06:00] VITALS: BP 145/63
[2021-11-15] MEDS: ADVAIR HFA 230/21MCG INHALER INH SCH (07:08)
[2021-11-15] MEDS: BISACODYL 10 MG SUPP PR SCH (07:43)
[2021-11-15] MEDS: SENOKOT S TAB PO SCH (07:55)
[2021-11-15] MEDS: PANTOPRAZOLE 40MG TAB (PROTONIX) PO SCH (07:55)
[2021-11-15] MEDS: MAGNESIUM OXIDE 400MG TAB (MAG-OX) PO SCH (07:55)
[2021-11-15] MEDS: HEPARIN SOD (PORCINE) 5000UNITS/ML 1ML VIAL/SYRINGE SQ SCH (07:56)
[2021-11-15] MEDS: NYSTATIN 100,000 UNITS/GM TOPICAL PWD 15 GM TOP SCH (07:56)
[2021-11-15] MEDS: HumaLOG INSULIN (NovoLOG) PER UNIT SC SCH ×2 (07:56→12:30)
[2021-11-15] MEDS ORDERED: PANT40TA29 PO (10:41)
[2021-11-15] MEDS ORDERED: MAGN400T2 PO (10:41)
[2021-11-15] MEDS ORDERED: DIPH25CA32 PO (10:41)
[2021-11-15] MEDS ORDERED: NYST10006 TOP (10:41)
[2021-11-15] MEDS ORDERED: SENN-52 PO (10:41)
== END 2021-11-15 13:00 | DRG 377 ==
LOC: M ED 10:17 → EDBD 10:17 → M ED INP 13:17 → ENRESERV 16:46 → M MS5PR 17:40
PROVIDERS: ADMIT Family Medicine; ATTEND Internal Medicine Nephrology
DX: K29.71 Gastritis, unspecified, with bleeding (principal); I81 Portal vein thrombosis; K56.600 Partial intestinal obstruction, unspecified as to cause; N39.0 Urinary tract infection, site not specified; J45.901 Unspecified asthma with (acute) exacerbation; N17.9 Acute kidney failure, unspecified; E11.22 Type 2 diabetes mellitus with diabetic chronic kidney disease; I12.9 Hypertensive chronic kidney disease with stage 1 through stage 4 chronic kidney disease, or unspecified chronic kidney disease; E78.5 Hyperlipidemia, unspecified; Z66 Do not resuscitate; N18.30 Chronic kidney disease, stage 3 unspecified; E66.9 Obesity, unspecified; F41.1 Generalized anxiety disorder; B96.4 Proteus (mirabilis) (morganii) as the cause of diseases classified elsewhere; E83.42 Hypomagnesemia; R41.0 Disorientation, unspecified; N28.89 Other specified disorders of kidney and ureter; K80.20 Calculus of gallbladder without cholecystitis without obstruction; K57.90 Diverticulosis of intestine, part unspecified, without perforation or abscess without bleeding; Z68.28 Body mass index [BMI] 28.0-28.9, adult; Z79.899 Other long term (current) drug therapy; Z88.2 Allergy status to sulfonamides

== ENCOUNTER → 2021-11-17 | Outpatient (REF) | payer MEDICARE ==
[~2021-11-17] MED LIST changes: +ALBU8.5H INH; +DIPH25CA32 PO; +MAGN400T2 PO; +MYRB25TA PO; +NYST10006 TOP; +PANT40TA29 PO; +SENN-52 PO
[2021-11-17 14:50] LABS: HEMATOCRIT 31.9 % (36.0-47.0); HEMOGLOBIN 10.1 g/dl (12.0-15.5); MEAN CORPUSCULAR HEMOGLOBIN 26.7 pg (27.0-33.0); MEAN CORPUSCULAR HGB CONC 31.7 g/dl (32.0-36.5); MEAN CORPUSCULAR VOLUME 84.4 fl (80.0-96.0); PLATELET COUNT, AUTOMATED 356 10^3/uL (150-450); RED BLOOD COUNT 3.78 10^6/uL (4.00-5.40); WHITE BLOOD COUNT 13.6 10^3/uL (4.0-10.0)
== END ==
LOC: SKLAB7 07:00
PROVIDERS: ATTEND Neuromusculoskeletal Medicine & OMM
DX: Z87.19 Personal history of other diseases of the digestive system (principal)

== ENCOUNTER → 2021-11-22 | Outpatient (REF) ==
[2021-11-22 13:06] LABS: HEMATOCRIT 29.6 % (36.0-47.0); HEMOGLOBIN 9.5 g/dl (12.0-15.5); MEAN CORPUSCULAR HEMOGLOBIN 26.5 pg (27.0-33.0); MEAN CORPUSCULAR HGB CONC 32.1 g/dl (32.0-36.5); MEAN CORPUSCULAR VOLUME 82.7 fl (80.0-96.0); PLATELET COUNT, AUTOMATED 311 10^3/uL (150-450); RED BLOOD COUNT 3.58 10^6/uL (4.00-5.40); WHITE BLOOD COUNT 10.6 10^3/uL (4.0-10.0)
== END ==
LOC: SKLAB7 07:00
PROVIDERS: ATTEND Neuromusculoskeletal Medicine & OMM
DX: D64.9 Anemia, unspecified (principal)

== ENCOUNTER → 2022-01-12 | Outpatient (CLI) | payer MEDICARE | LOC: M RAD 09:46 | PROVIDERS: ATTEND Neuromusculoskeletal Medicine & OMM | DX: N28.89 Other specified disorders of kidney and ureter (principal); N18.9 Chronic kidney disease, unspecified ==

== ENCOUNTER → 2022-02-03 | Outpatient (REF) | payer MEDICARE ==
[2022-02-03 13:45] LABS: HEMATOCRIT 31.1 % (36.0-47.0); HEMOGLOBIN 9.8 g/dl (12.0-15.5); MEAN CORPUSCULAR HGB CONC 31.5 g/dl (32.0-36.5); MEAN CORPUSCULAR VOLUME 82.5 fl (80.0-96.0); PLATELET COUNT, AUTOMATED 359 10^3/uL (150-450); RED BLOOD COUNT 3.77 10^6/uL (4.00-5.40); WHITE BLOOD COUNT 8.2 10^3/uL (4.0-10.0)
[2022-02-03 14:12] LABS: ALBUMIN 3.4 GM/DL (3.2-5.2); BILIRUBIN,TOTAL 0.3 MG/DL (0.2-1.0); CALCIUM LEVEL 9.2 MG/DL (8.8-10.2); CREATININE FOR GFR 1.39 MG/DL (0.55-1.30); GLOMERULAR FILTRATION RATE 38.1 (>32); POTASSIUM SERUM 5.3 MEQ/L (3.5-5.1); TOTAL PROTEIN 7.3 GM/DL (6.4-8.2)
== END ==
LOC: SKLAB2 07:00
PROVIDERS: ATTEND Radiology Diagnostic Radiology
DX: U07.1 COVID-19 (principal); Z79.899 Other long term (current) drug therapy

== ENCOUNTER → 2022-02-04 | Outpatient (REF) | payer MEDICARE ==
[2022-02-04 07:59] LABS: CALCIUM LEVEL 9.5 MG/DL (8.8-10.2); CREATININE FOR GFR 1.41 MG/DL (0.55-1.30); GLOMERULAR FILTRATION RATE 37.5 (>32); POTASSIUM SERUM 4.9 MEQ/L (3.5-5.1)
== END ==
LOC: SKLAB2 07:00
PROVIDERS: ATTEND Radiology Diagnostic Radiology
DX: U07.1 COVID-19 (principal)

== ENCOUNTER → 2022-02-04 | Outpatient (REF) | payer MEDICARE | LOC: SKLAB2 02-03 07:00 | PROVIDERS: ATTEND Internal Medicine | DX: U07.1 COVID-19 (principal) ==

== ENCOUNTER → 2022-02-05 | Outpatient (REF) | payer MEDICARE ==
[2022-02-05 11:19] LABS: HEMATOCRIT 31.8 % (36.0-47.0); HEMOGLOBIN 9.9 g/dl (12.0-15.5); MEAN CORPUSCULAR HEMOGLOBIN 25.2 pg (27.0-33.0); MEAN CORPUSCULAR HGB CONC 31.1 g/dl (32.0-36.5); MEAN CORPUSCULAR VOLUME 80.9 fl (80.0-96.0); PLATELET COUNT, AUTOMATED 380 10^3/uL (150-450); RED BLOOD COUNT 3.93 10^6/uL (4.00-5.40); WHITE BLOOD COUNT 9.7 10^3/uL (4.0-10.0)
[2022-02-05 12:32] LABS: ALBUMIN 3.4 GM/DL (3.2-5.2); BILIRUBIN,TOTAL 0.4 MG/DL (0.2-1.0); CALCIUM LEVEL 9.4 MG/DL (8.8-10.2); CREATININE FOR GFR 1.47 MG/DL (0.55-1.30); GLOMERULAR FILTRATION RATE 35.7 (>32); POTASSIUM SERUM 4.6 MEQ/L (3.5-5.1); TOTAL PROTEIN 7.4 GM/DL (6.4-8.2)
== END ==
LOC: SKLAB2 10:52
PROVIDERS: ATTEND Neuromusculoskeletal Medicine & OMM
DX: U07.1 COVID-19 (principal); Z79.899 Other long term (current) drug therapy

== ENCOUNTER → 2022-02-08 | Outpatient (REF) | payer MEDICARE ==
[2022-02-08 09:53] LABS: HEMATOCRIT 34.2 % (36.0-47.0); HEMOGLOBIN 10.6 g/dl (12.0-15.5); MEAN CORPUSCULAR HEMOGLOBIN 25.2 pg (27.0-33.0); MEAN CORPUSCULAR VOLUME 81.4 fl (80.0-96.0); PLATELET COUNT, AUTOMATED 410 10^3/uL (150-450); WHITE BLOOD COUNT 11.3 10^3/uL (4.0-10.0)
[2022-02-08 10:26] LABS: ALBUMIN 3.7 GM/DL (3.2-5.2); BILIRUBIN,TOTAL 0.3 MG/DL (0.2-1.0); CALCIUM LEVEL 9.8 MG/DL (8.8-10.2); CREATININE FOR GFR 1.43 MG/DL (0.55-1.30); GLOMERULAR FILTRATION RATE 36.9 (>32); POTASSIUM SERUM 4.9 MEQ/L (3.5-5.1); TOTAL PROTEIN 7.8 GM/DL (6.4-8.2)
== END ==
LOC: SKLAB2 10:07
PROVIDERS: ATTEND Nurse Practitioner Family
DX: U07.1 COVID-19 (principal); Z79.899 Other long term (current) drug therapy

== ENCOUNTER → 2022-02-12 | Outpatient (REF) | payer MEDICARE ==
[2022-02-12 08:46] LABS: HEMATOCRIT 33.3 % (36.0-47.0); HEMOGLOBIN 10.3 g/dl (12.0-15.5); MEAN CORPUSCULAR HEMOGLOBIN 25.2 pg (27.0-33.0); MEAN CORPUSCULAR HGB CONC 30.9 g/dl (32.0-36.5); MEAN CORPUSCULAR VOLUME 81.4 fl (80.0-96.0); PLATELET COUNT, AUTOMATED 412 10^3/uL (150-450); RED BLOOD COUNT 4.09 10^6/uL (4.00-5.40); WHITE BLOOD COUNT 10.9 10^3/uL (4.0-10.0)
[2022-02-12 09:13] LABS: ALBUMIN 3.5 GM/DL (3.2-5.2); BILIRUBIN,TOTAL 0.3 MG/DL (0.2-1.0); CALCIUM LEVEL 9.6 MG/DL (8.8-10.2); CREATININE FOR GFR 1.41 MG/DL (0.55-1.30); GLOMERULAR FILTRATION RATE 37.5 (>32); POTASSIUM SERUM 5.2 MEQ/L (3.5-5.1); TOTAL PROTEIN 7.6 GM/DL (6.4-8.2)
== END ==
LOC: SKLAB2 09:36
PROVIDERS: ATTEND Nurse Practitioner Family
DX: U07.1 COVID-19 (principal); Z79.899 Other long term (current) drug therapy

== ENCOUNTER → 2022-04-27 | Outpatient (REF) | payer MEDICARE | LOC: SKLAB7 13:07 | PROVIDERS: ATTEND Nurse Practitioner | DX: R09.89 Other specified symptoms and signs involving the circulatory and respiratory systems (principal) ==

== ENCOUNTER → 2022-04-30 | Outpatient (REF) | payer MEDICARE ==
[2022-04-30 08:20] LABS: CALCIUM LEVEL 9.1 MG/DL (8.8-10.2); CREATININE FOR GFR 1.42 MG/DL (0.55-1.30); GLOMERULAR FILTRATION RATE 37.2 (>32); POTASSIUM SERUM 4.6 MEQ/L (3.5-5.1)
== END ==
LOC: SKLAB7 08:46
PROVIDERS: ATTEND Nurse Practitioner
DX: N18.9 Chronic kidney disease, unspecified (principal)

== ENCOUNTER → 2022-05-03 | Outpatient (REF) | payer MEDICARE ==
[2022-05-03 13:13] LABS: HEMATOCRIT 33.9 % (36.0-47.0); HEMOGLOBIN 10.1 g/dl (12.0-15.5); MEAN CORPUSCULAR HEMOGLOBIN 24.5 pg (27.0-33.0); MEAN CORPUSCULAR HGB CONC 29.8 g/dl (32.0-36.5); MEAN CORPUSCULAR VOLUME 82.3 fl (80.0-96.0); PLATELET COUNT, AUTOMATED 381 10^3/uL (150-450); RED BLOOD COUNT 4.12 10^6/uL (4.00-5.40); WHITE BLOOD COUNT 10.8 10^3/uL (4.0-10.0)
[2022-05-03 13:45] LABS: CALCIUM LEVEL 9.3 MG/DL (8.8-10.2); CHOLESTEROL RISK RATIO 2.424 (<5); CREATININE FOR GFR 1.45 MG/DL (0.55-1.30); GLOMERULAR FILTRATION RATE 36.3 (>32); PHOSPHORUS LEVEL 3.7 MG/DL (2.5-4.9); POTASSIUM SERUM 4.5 MEQ/L (3.5-5.1)
[2022-05-03 15:04] LABS: PTH INTACT 78.6 PG/ML (18.5-88.0); TOTAL 25(OH) VITAMIN D 27.4 NG/ML (30.0-100.0)
[2022-05-03 19:47] LABS: HEMOGLOBIN A1c 7.1 %
== END ==
LOC: SKLAB7 08:46
PROVIDERS: ATTEND Nurse Practitioner
DX: N18.9 Chronic kidney disease, unspecified (principal); E78.5 Hyperlipidemia, unspecified; Z79.899 Other long term (current) drug therapy

== ENCOUNTER → 2022-06-15 | Outpatient (REF) | payer MEDICARE ==
[2022-06-15 07:28] LABS: HEMATOCRIT 32.3 % (36.0-47.0); HEMOGLOBIN 9.9 g/dl (12.0-15.5); MEAN CORPUSCULAR HEMOGLOBIN 24.8 pg (27.0-33.0); MEAN CORPUSCULAR HGB CONC 30.7 g/dl (32.0-36.5); MEAN CORPUSCULAR VOLUME 80.8 fl (80.0-96.0); PLATELET COUNT, AUTOMATED 348 10^3/uL (150-450); WHITE BLOOD COUNT 10.6 10^3/uL (4.0-10.0)
[2022-06-15 07:50] LABS: CALCIUM LEVEL 9.1 MG/DL (8.3-10.6); CREATININE FOR GFR 1.24 MG/DL (0.55-1.30); GLOMERULAR FILTRATION RATE 43.4 (>32); POTASSIUM SERUM 4.4 MMOL/L (3.5-5.1)
== END ==
LOC: SKLAB7 07:00
PROVIDERS: ATTEND Nurse Practitioner
DX: N18.9 Chronic kidney disease, unspecified (principal)

== ENCOUNTER → 2022-06-26 | Outpatient (REF) | payer MEDICARE ==
[2022-06-26 07:30] LABS: ALBUMIN 3.6 G/DL (3.2-5.2); CALCIUM LEVEL 9.6 MG/DL (8.3-10.6); CREATININE FOR GFR 1.35 MG/DL (0.55-1.30); GLOMERULAR FILTRATION RATE 39.3 (>32); PHOSPHORUS LEVEL 3.8 MG/DL (2.4-5.1); POTASSIUM SERUM 4.6 MMOL/L (3.5-5.1)
== END ==
LOC: SKLAB7 07:00
PROVIDERS: ATTEND Nurse Practitioner
DX: I50.9 Heart failure, unspecified (principal)

== ENCOUNTER → 2022-07-08 | Outpatient (REF) ==
[2022-07-08 21:37] LABS: HEMATOCRIT 37.2 % (36.0-47.0); HEMOGLOBIN 11.4 g/dl (12.0-15.5); MEAN CORPUSCULAR HEMOGLOBIN 24.6 pg (27.0-33.0); MEAN CORPUSCULAR HGB CONC 30.6 g/dl (32.0-36.5); MEAN CORPUSCULAR VOLUME 80.3 fl (80.0-96.0); PLATELET COUNT, AUTOMATED 427 10^3/uL (150-450); RED BLOOD COUNT 4.63 10^6/uL (4.00-5.40); WHITE BLOOD COUNT 12.4 10^3/uL (4.0-10.0)
[2022-07-08 21:49] LABS: CALCIUM LEVEL 8.8 MG/DL (8.3-10.6); CREATININE FOR GFR 1.26 MG/DL (0.55-1.30); GLOMERULAR FILTRATION RATE 42.6 (>32); POTASSIUM SERUM 4.2 MMOL/L (3.5-5.1)
== END ==
LOC: SKLAB7 21:25
PROVIDERS: ATTEND Neuromusculoskeletal Medicine & OMM
DX: R19.7 Diarrhea, unspecified (principal)

== ENCOUNTER → 2022-07-09 | Outpatient (REF) | payer MEDICARE ==
[2022-07-09 15:44] LABS: APPEARANCE, URINE MANUAL HAZY (CLEAR); BILIRUBIN, URINE MANUAL NEGATIVE (NEGATIVE); BLOOD URINE MANUAL TRACE (NEGATIVE); COLOR, URINE MANUAL LT YELLOW (YELLOW); GLUCOSE, URINE (UA) MANUAL NEGATIVE (NEGATIVE); KETONE, URINE MANUAL NEGATIVE (NEGATIVE); LEUKOCYTE ESTERASE, URINE MAN POSITIVE (NEGATIVE); NITRITE, URINE MANUAL NEGATIVE (NEGATIVE); SPECIFIC GRAVITY,URINE MANUAL 1.015 (1.002-1.035); UROBILINOGEN, URINE MANUAL NORMAL (NORMAL)
[2022-07-09 15:45] LABS: PROTEIN, URINE MANUAL NEGATIVE (NEGATIVE)
[2022-07-09 16:27] LABS: BACTERIA, URINE LARGE AMOUNT; RBC, URINE 0-1 /hpf (0-3); SQUAMOUS EPITHELIAL CELL URINE LARGE AMOUNT /hpf (SMALL AMT)
== END ==
LOC: SKLAB7 11:20
PROVIDERS: ATTEND Nurse Practitioner
DX: R19.7 Diarrhea, unspecified (principal)

== ENCOUNTER → 2022-07-10 | Outpatient (REF) | payer MEDICARE ==
[2022-07-10 11:06] LABS: HEMATOCRIT 32.7 % (36.0-47.0); HEMOGLOBIN 9.8 g/dl (12.0-15.5); MEAN CORPUSCULAR HEMOGLOBIN 24.6 pg (27.0-33.0); PLATELET COUNT, AUTOMATED 342 10^3/uL (150-450); RED BLOOD COUNT 3.99 10^6/uL (4.00-5.40); WHITE BLOOD COUNT 9.3 10^3/uL (4.0-10.0)
[2022-07-10 11:31] LABS: CALCIUM LEVEL 8.4 MG/DL (8.3-10.6); CREATININE FOR GFR 1.2 MG/DL (0.55-1.30); POTASSIUM SERUM 3.8 MMOL/L (3.5-5.1)
== END ==
LOC: SKLAB7 14:55
PROVIDERS: ATTEND Nurse Practitioner
DX: R19.7 Diarrhea, unspecified (principal)

== ENCOUNTER → 2022-08-19 | Outpatient (REF) | payer MEDICARE ==
[~2022-08-19] MED LIST changes: +DIPH-435 PO; -DIPH25CA32 PO
== END ==
LOC: SKLAB7 14:48
PROVIDERS: ATTEND Neuromusculoskeletal Medicine & OMM
DX: R35.0 Frequency of micturition (principal); Z53.8 Procedure and treatment not carried out for other reasons

== ENCOUNTER → 2022-08-20 | Outpatient (REF) | payer MEDICARE, OTHER ==
[2022-08-20 01:06] LABS: HEMATOCRIT 32.4 % (36.0-47.0); MEAN CORPUSCULAR HEMOGLOBIN 25.1 pg (27.0-33.0); MEAN CORPUSCULAR HGB CONC 30.9 g/dl (32.0-36.5); MEAN CORPUSCULAR VOLUME 81.4 fl (80.0-96.0); PLATELET COUNT, AUTOMATED 325 10^3/uL (150-450); RED BLOOD COUNT 3.98 10^6/uL (4.00-5.40); WHITE BLOOD COUNT 11.4 10^3/uL (4.0-10.0)
[2022-08-20 01:31] LABS: CREATININE FOR GFR 1.41 MG/DL (0.55-1.30); GLOMERULAR FILTRATION RATE 37.4 (>32)
== END ==
LOC: SKLAB7 00:28
PROVIDERS: ATTEND Neuromusculoskeletal Medicine & OMM
DX: R50.9 Fever, unspecified (principal)

== ENCOUNTER → 2022-09-05 | Outpatient (REF) | payer MEDICARE ==
[2022-09-05 22:30] LABS: APPEARANCE, URINE TURBID (CLEAR); BACTERIA, URINE AUTO 2+ (NEGATIVE); BILIRUBIN, URINE AUTO NEGATIVE (NEGATIVE); BLOOD, URINE BLOOD 1+ (NEGATIVE); COLOR, URINE AMBER (YELLOW); GLUCOSE, URINE (UA) AUTO NEGATIVE (NEGATIVE); KETONE, URINE AUTO NEGATIVE (NEGATIVE); LEUKOCYTE ESTERASE, URINE AUTO 3+ (NEGATIVE); MUCUS, URINE SMALL (NEGATIVE); NITRITE, URINE AUTO NEGATIVE (NEGATIVE); PROTEIN, URINE AUTO 2+ mg/dL (NEGATIVE); RBC, URINE AUTO 41 /HPF (0-3); SPECIFIC GRAVITY URINE AUTO 1.015 (1.002-1.035); SQUAMOUS EPITHELIAL CELL UR AU 3 /HPF (0-6); UROBILINOGEN, URINE AUTO 0.2 mg/dL (0.0-2.0); WBC, URINE AUTO TNTC /HPF (0-3)
[2022-09-05 22:49] LABS: HEMATOCRIT 31.3 % (36.0-47.0); MEAN CORPUSCULAR HEMOGLOBIN 25.9 pg (27.0-33.0); MEAN CORPUSCULAR HGB CONC 31.9 g/dl (32.0-36.5); MEAN CORPUSCULAR VOLUME 81.1 fl (80.0-96.0); PLATELET COUNT, AUTOMATED 345 10^3/uL (150-450); RED BLOOD COUNT 3.86 10^6/uL (4.00-5.40); WHITE BLOOD COUNT 12.9 10^3/uL (4.0-10.0)
[2022-09-05 23:18] LABS: CALCIUM LEVEL 8.9 MG/DL (8.3-10.6); CREATININE FOR GFR 1.44 MG/DL (0.55-1.30); GLOMERULAR FILTRATION RATE 36.5 (>32)
== END ==
LOC: SKLAB7 22:13
PROVIDERS: ATTEND Internal Medicine
DX: R41.82 Altered mental status, unspecified (principal)

== ENCOUNTER → 2022-11-01 | Outpatient (REF) | payer MEDICARE ==
[2022-11-01 08:40] LABS: HEMATOCRIT 33.5 % (36.0-47.0); HEMOGLOBIN 10.6 g/dl (12.0-15.5); MEAN CORPUSCULAR HEMOGLOBIN 26.4 pg (27.0-33.0); MEAN CORPUSCULAR HGB CONC 31.6 g/dl (32.0-36.5); MEAN CORPUSCULAR VOLUME 83.3 fl (80.0-96.0); PLATELET COUNT, AUTOMATED 338 10^3/uL (150-450); RED BLOOD COUNT 4.02 10^6/uL (4.00-5.40)
[2022-11-01 09:15] LABS: CALCIUM LEVEL 8.9 MG/DL (8.3-10.6); CREATININE FOR GFR 1.23 MG/DL (0.55-1.30); GLOMERULAR FILTRATION RATE 43.8 (>32); POTASSIUM SERUM 3.5 MMOL/L (3.5-5.1)
[2022-11-01 09:31] LABS: HEMOGLOBIN A1c 6.9 % (4.0-6.0)
== END ==
LOC: SKLAB7 14:08
PROVIDERS: ATTEND Nurse Practitioner
DX: I50.9 Heart failure, unspecified (principal); E11.9 Type 2 diabetes mellitus without complications

== ENCOUNTER → 2023-05-02 | Outpatient (REF) | payer MEDICARE ==
[2023-05-02 10:19] LABS: HEMATOCRIT 36.1 % (36.0-47.0); HEMOGLOBIN 11.2 g/dl (12.0-15.5); MEAN CORPUSCULAR HEMOGLOBIN 27.3 pg (27.0-33.0); MEAN CORPUSCULAR VOLUME 87.8 fl (80.0-96.0); PLATELET COUNT, AUTOMATED 408 10^3/uL (150-450); RED BLOOD COUNT 4.11 10^6/uL (4.00-5.40); WHITE BLOOD COUNT 10.3 10^3/uL (4.0-10.0)
[2023-05-09 12:32] LABS: CALCIUM LEVEL 9.8 MG/DL (8.7-10.3); CREATININE FOR GFR 1.37 MG/DL (0.57-1.00); GLOMERULAR FILTRATION RATE 38.6 (>59); POTASSIUM SERUM 4.5 mmol/L (3.5-5.2)
== END ==
LOC: SKLAB7 07:00
PROVIDERS: ATTEND Internal Medicine
DX: E11.9 Type 2 diabetes mellitus without complications (principal)